=== PATIENT | female | born 1940 | race Caucasian/White ===

== ENCOUNTER 2018-11-12 18:32 | Observation (INO) | payer MEDICARE, BC ==
[2018-11-12] MEDS ORDERED: Sodium Chloride 0.9% 1000 ML 1,000 ML IV STA (19:06)
[2018-11-12] MEDS ORDERED: Sodium Chloride 0.9% 1000 ML 1,000 ML ONE (19:23)
[2018-11-12 20:25] LABS: BASOPHIL % 0.2 % (0.0-0.4); Basophil (Absolute #) 0.03 (0-0.4); Eosinophil % 0.3 % (0.00-5.0); Eosinophil (Absolute #) 0.05 (0-0.5); Granulocyte Absolute (ANC) 12.35 (1.4-6.9); Granulocytes % 85.8 % (36.0-66.0); Hematocrit 42.4 % (35-47); Hemoglobin 13.7 gm/dl (12.0-16.0); Lymphocyte (Absolute #) 1.19 (1.0-4.6); Lymphocytes % 8.3 % (24.0-44.0); Mean Cell Volume 83.8 fl (78-100); Mean Corpuscular Hemoglobin 27.1 pg (26-32); Mean Corpuscular Hgb Concent. 32.3 g/dl (32-36); Mean Platelet Volume 10.9 fl (6-9.5); Monocyte (Absolute #) 0.77 (0.0-1.3); Monocytes % 5.4 % (0.0-12.0); Platelet Count 295 K/mm3 (150-450); Red Blood Count 5.06 M/mm3 (4.1-5.4); Red Cell Distribution Width 15.2 % (11.5-14.0); White Blood Count 14.4 K/mm3 (4.0-10.5)
--- NOTE | 2018-11-12 20:29 | ERPHSYRPT ---
- History of Present Illness Time Seen by Provider: 11/12/18 18:45 Source: patient Exam Limitations: clinical condition Patient Subjective Stated Complaint: pt reports feeling dizzy and sweaty starting around 1800 while sitting at [employer]. states she doesnt know what happened after that. pt reports unknown LOC. pt denies a fall, states she remained sitting. Triage Nursing Assessment: pt is aox3, pupils perrl, pt speech is clear, pt answers questions appropriately, pt skin is clammy upon arrival, pt appears pale , radial pulses strong and equal, heart sounds are strong and regular, cap refill < 3 seconds, no edema noted, skin warm, dry. no obivious injury or deformity noted. Physician History: PATIENT WITH A HISTORY OF HYPERTENSION, WHILE PLAYING [employer] HAD AN EPISODE OF SYNCOPE, UNRESPONSIVE FOR 1-2 MINUTES, HAS ASSOCIATED DIZZINESS AND DIAPHORESIS. DENIES HEADACHE, BLURRED VISION, SLURRED SPEECH, FOCAL NUMBNESS, TINGLING OR WEAKNESS IN EXTREMITIES. Timing/Duration: today Severity: moderate Character of Deficits: none Deficits: no difficulties Baseline/Normal Cognition: alert oriented x 3 Current Cognition: alert oriented x 3 Baseline Gait: walks w/o assistance Associated Symptoms: loss of consciousness Allergies/Adverse Reactions: No Known Drug Allergies Allergy (Unverified 02/22/15 13:59) Home Medications: Lovastatin 40 mg PO HS 02/22/15 [History] Metoprolol Tartrate 50 mg PO BID 02/22/15 [History] Omeprazole 20 mg PO DAILY 02/22/15 [History] Potassium Chloride 10 Meq Tab* [Klor Con 10 MEQ] 10 meq PO DAILY 02/22/15 [ History] Hx Tetanus, Diphtheria Vaccination/Date Given: No Hx Influenza Vaccination/Date Given: Yes Hx Pneumococcal Vaccination/Date Given: No Immunizations Up to Date: Yes - Review of Systems Constitutional: No Fever, No Chills Eyes: No Symptoms Ears, Nose, & Throat: No Symptoms Respiratory: No Symptoms, No Cough, No Dyspnea Cardiac: No Symptoms, No Chest Pain, No Edema, No Syncope Abdominal/Gastrointestinal: No Symptoms, No Abdominal Pain, No Nausea, No Vomiting, No Diarrhea Genitourinary Symptoms: No Symptoms, No Dysuria Musculoskeletal: No Symptoms, No Back Pain, No Neck Pain Skin: No Rash Neurological: Dizziness, Other (SYNCOPE), No Focal Weakness, No Sensory Changes Psychological: No Symptoms Endocrine: No Symptoms All Other Systems: Reviewed and Negative - Past Medical History Pertinent Past Medical History: Yes Neurological History: No Pertinent History ENT History: No Pertinent History Cardiac History: High Cholesterol, Hypertension Respiratory History: No Pertinent History Endocrine Medical History: No Pertinent History Musculoskeletal History: No Pertinent History GI Medical History: No Pertinent History History: No Pertinent History Psycho-Social History: No Pertinent History Female Reproductive Disorders: No Pertinent History - Past Surgical History Past Surgical History: No Neuro Surgical History: No Pertinent History Cardiac: No Pertinent History Respiratory: No Pertinent History Gastrointestinal: No Pertinent History Genitourinary: No Pertinent History Musculoskeletal: No Pertinent History Female Surgical History: No Pertinent History - Social History Smoking Status: Never smoker Exposure to second hand smoke: No Drug Use: none Patient Lives Alone: Yes - Female History Hx Now: No - Nursing Vital Signs Nursing Vital Signs: Initial Vital Signs Temperature 97.3 F 11/12/18 18:33 Pulse Rate 69 11/12/18 18:33 Respiratory Rate 24 11/12/18 18:33 Blood Pressure 125/74 11/12/18 18:33 O2 Sat by Pulse Oximetry 93 L 11/12/18 18:33 Pain Scale Pain Intensity 0 - Physical Exam SpO2: 96 - Course EKG Interpreted by Me: RATE, Sinus Rhythm, NORMAL ST-T (LEADS I, AVL,V3 V4 V5 V6 ) - CT Exams Head CT Interpretation: Discussed w/radiologist (NON ACUTE SENILE BRAIN) Ordered Tests: Active Orders 24 hr Category Date Time Status Orthostatic Vital Signs STAT Care 11/12/18 19:05 Active CHEST 1 VIEW (PORTABLE) Stat Exams 11/12/18 19:34 Taken HEAD WITHOUT CONTRAST [CT] Stat Exams 11/12/18 19:13 Taken CBC W DIFF Stat Lab 11/12/18 20:16 Completed CMP Stat Lab 11/12/18 20:16 Completed CULTURE,URINE Stat Lab 11/12/18 20:20 Received PROTIME WITH INR Stat Lab 11/12/18 20:16 Completed TROPONIN Q3H Lab 11/12/18 20:16 Completed TROPONIN Q3H Lab 11/12/18 22:00 Ordered TROPONIN Q3H Lab 11/13/18 01:00 Ordered TROPONIN Q3H Lab 11/13/18 04:00 Ordered TROPONIN Q3H Lab 11/13/18 07:00 Ordered UA W/RFX UR CULTURE Stat Lab 11/12/18 20:20 Completed Medication Summary Generic Name Dose Route Start Last Admin Trade Name Suzanna PRN Reason Stop Dose Admin Sodium Chloride 1,000 mls @ 250 mls/hr 11/12/18 19:06 11/12/18 19:24 Sodium Chloride 0.9% 1000 Ml IV 11/12/18 23:05 250 mls/hr .Q4H STA Administration Discontinued Medications Generic Name Dose Route Start Last Admin Trade Name Suzanna PRN Reason Stop Dose Admin Sodium Chloride Confirm 11/12/18 19:23 Sodium Chloride 0.9% 1000 Ml Administered 11/12/18 19:24 Dose 1,000 mls @ ud .ROUTE .STK-MED ONE Ceftriaxone Sodium/Dextrose 1 g in 50 mls @ 100 mls/hr 11/12/18 20:46 20:51 Rocephin 1 Gm-D5w 50 Ml Bag IV 11/12/18 21:15 100 ml/hr STAT STA 100 mls/hr Administration Ceftriaxone Sodium/Dextrose Confirm 11/12/18 20:48 Rocephin 1 Gm-D5w 50 Ml Bag Administered 11/12/18 20:49 Dose 1 g in 50 mls @ ud IV .STK-MED ONE Lab/Rad Data: Laboratory Result Diagrams 11/12/18 20:16 11/12/18 20:16 Laboratory Results 11/12/18 11/12/18 11/12/18 Range/Units 20:20 20:16 20:16 WBC (4.0-10.5) K/mm3 RBC (4.1-5.4) M/mm3 Hgb (12.0-16.0) gm/dl Hct (35-47) % MCV (78-100) fl MCH (26-32) pg MCHC (32-36) g/dl RDW (11.5-14.0) % Plt Count (150-450) K/mm3 MPV (6-9.5) fl Gran % (36.0-66.0) % Eos # (Auto) (0-0.5) Absolute Lymphs (auto) (1.0-4.6) Absolute Monos (auto) (0.0-1.3) Lymphocytes % (24.0-44.0) % Monocytes % (0.0-12.0) % Eosinophils % (0.00-5.0) % Basophils % (0.0-0.4) % Absolute Granulocytes (1.4-6.9) Basophils # (0-0.4) PT 12.2 (9.95-12.35) SECONDS INR 1.05 (0.8-3.0) Sodium (137-145) mmol/L Potassium (3.5-5.1) mmol/L Chloride (98-107) mmol/L Carbon Dioxide (22-30) mmol/L Anion Gap (5-15) MEQ/L BUN (7-17) mg/dL Creatinine (0.52-1.04) mg/dL Estimated GFR ML/MIN Glucose (74-106) mg/dL Calcium (8.4-10.2) mg/dL Total Bilirubin (0.2-1.3) mg/dL AST (14-36) U/L ALT (0-35) U/L Alkaline Phosphatase (38-126) U/L Troponin I < 0.012 (0.000-0.034) ng/mL Serum Total Protein (6.3-8.2) g/dL Albumin (3.5-5.0) g/dL Urine Color YELLOW (YELLOW) Urine Appearance SLIGHTLY CLOUDY (CLEAR) Urine pH 5.0 (5-6) Ur Specific Chandler 1.021 (1.005-1.025) Urine Protein NEGATIVE (Negative) Urine Ketones NEGATIVE (NEGATIVE) Urine Blood NEGATIVE (0-5) William/ul Urine Nitrite NEGATIVE (NEGATIVE) Urine Bilirubin NEGATIVE (NEGATIVE) Urine Urobilinogen 2 (0-1) mg/dL Ur Leukocyte Esterase NEGATIVE (NEGATIVE) Urine WBC (Auto) 6-10 (0-5) /HPF Urine RBC (Auto) 3-5 (0-2) /HPF U Hyaline Cast (Auto) 3-5 (0-2) /LPF U Epithel Cells (Auto) RARE (FEW) /HPF Urine Bacteria (Auto) FEW (NEGATIVE) /HPF Other Casts (Auto) 5-10 (NEGATIVE) /LPF Urine Mucus (Auto) MODERATE (NEGATIVE) /HPF Urine Culture Reflexed YES (NO) Urine Glucose NEGATIVE (NEGATIVE) mg/dL 11/12/18 11/12/18 Range/Units 20:16 20:16 WBC 14.4 H (4.0-10.5) K/mm3 RBC 5.06 (4.1-5.4) M/mm3 Hgb 13.7 (12.0-16.0) gm/dl Hct 42.4 (35-47) % MCV 83.8 (78-100) fl MCH 27.1 (26-32) pg MCHC 32.3 (32-36) g/dl RDW 15.2 H (11.5-14.0) % Plt Count 295 (150-450) K/mm3 MPV 10.9 H (6-9.5) fl Gran % 85.8 H (36.0-66.0) % Eos # (Auto) 0.05 (0-0.5) Absolute Lymphs (auto) 1.19 (1.0-4.6) Absolute Monos (auto) 0.77 (0.0-1.3) Lymphocytes % 8.3 L (24.0-44.0) % Monocytes % 5.4 (0.0-12.0) % Eosinophils % 0.3 (0.00-5.0) % Basophils % 0.2 (0.0-0.4) % Absolute Granulocytes 12.35 H (1.4-6.9) Basophils # 0.03 (0-0.4) PT (9.95-12.35) SECONDS INR (0.8-3.0) Sodium 141 (137-145) mmol/L Potassium 3.8 (3.5-5.1) mmol/L Chloride 105 (98-107) mmol/L Carbon Dioxide 23 (22-30) mmol/L Anion Gap 16.3 H (5-15) MEQ/L BUN 38 H (7-17) mg/dL Creatinine 1.16 H (0.52-1.04) mg/dL Estimated GFR 48.3 ML/MIN Glucose 141 H (74-106) mg/dL Calcium 9.1 (8.4-10.2) mg/dL Total Bilirubin 0.60 (0.2-1.3) mg/dL AST 35 (14-36) U/L ALT 27 (0-35) U/L Alkaline Phosphatase 82 (38-126) U/L Troponin I (0.000-0.034) ng/mL Serum Total Protein 8.0 (6.3-8.2) g/dL Albumin 4.4 (3.5-5.0) g/dL Urine Color (YELLOW) Urine Appearance (CLEAR) Urine pH (5-6) Ur Specific Chandler (1.005-1.025) Urine Protein (Negative) Urine Ketones (NEGATIVE) Urine Blood (0-5) William/ul Urine Nitrite (NEGATIVE) Urine Bilirubin (NEGATIVE) Urine Urobilinogen (0-1) mg/dL Ur Leukocyte Esterase (NEGATIVE) Urine WBC (Auto) (0-5) /HPF Urine RBC (Auto) (0-2) /HPF U Hyaline Cast (Auto) (0-2) /LPF U Epithel Cells (Auto) (FEW) /HPF Urine Bacteria (Auto) (NEGATIVE) /HPF Other Casts (Auto) (NEGATIVE) /LPF Urine Mucus (Auto) (NEGATIVE) /HPF Urine Culture Reflexed (NO) Urine Glucose (NEGATIVE) mg/dL - Progress Progress Note: 11/12/18 21:13 IV NORMAL SALINE 100ML/HR, ROCEPHIN 1GM IV Discussed with : Joan (DISCUSSED WITH DR BYOLE AT 1210 FOR OBSERVATION) - Departure Time of Disposition: 21:20 Departure Disposition: Observation Clinical Impression: SYNCOPE, URINARY TRACT INFECTION Condition: Stable Critical Care Time: No Referrals: PEDRO MONTENEGRO MD [Primary Care Provider] -
[2018-11-12 20:33] LABS: INR 1.05 (0.8-3.0); PROTIME 12.2 SECONDS (9.95-12.35)
[2018-11-12 20:40] LABS: Appearance SLIGHTLY CLOUDY (CLEAR); Bacteria FEW /HPF (NEGATIVE); Bilirubin NEGATIVE (NEGATIVE); Blood NEGATIVE Ery/ul (0-5); Epithelial Cells RARE /HPF (FEW); Glucose NEGATIVE (NEGATIVE); Ketones NEGATIVE (NEGATIVE); Leukocyte Esterase NEGATIVE (NEGATIVE); Mucus MODERATE /HPF (NEGATIVE); Nitrite NEGATIVE (NEGATIVE); Protein,Urine Dip NEGATIVE (Negative); Specific Gravity 1.021 (1.005-1.025); Urobilinogen 2 mg/dL (0-1)
[2018-11-12 20:43] LABS: ALBUMIN 4.4 g/dL (3.5-5.0); ANION GAP 16.3 MEQ/L (5-15); BILIRUBIN,TOTAL 0.6 mg/dL (0.2-1.3); Calcium 9.1 mg/dL (8.4-10.2); Creatinine 1 1.16 mg/dL (0.52-1.04); Potassium 3.8 mmol/L (3.5-5.1)
[2018-11-12] MEDS ORDERED: ROCEPHIN 1 Gm-D5w 50 ml Bag** 1 G/50 ML IVPB IV STA (20:46)
[2018-11-12] MEDS ORDERED: ROCEPHIN 1 Gm-D5w 50 ml Bag** 1 G/50 ML IVPB IV ONE (20:48)
[2018-11-12] MEDS ORDERED: Sodium Chloride 0.9% 1000 ML 1,000 ML IV SCH (21:38)
[2018-11-12] MEDS ORDERED: Zestril 10 MG PO STA (21:38)
[2018-11-12] MEDS ORDERED: TYLENOL 325 MG PO PRN (21:38)
[2018-11-13] MEDS: Toprol Xl 50 MG PO SCH ×2 (00:17→09:47)
--- NOTE | 2018-11-13 08:18 | PCM.SSS ---
History of Present Illness - Chief Complaint Chief Complaint: TIA UTI History of Present Illness: MS. ESPARZA is a 78 year old female pt of Dr. Montenegro with hx HTN, hyperlipidemia, and GERD who was admitted through ER with syncope. She felt fine all day aside from some decreased appetite; went to [employer] and was sitting - she felt like she needed to leave, but couldn't. The next thing she remembers is the ambulance picking her up. Witnesses told her that she went limp and was out for 5 min ( no one present at bedside this morning). Her Troponins have been negative x 4. She had 6-10 WBC in her urine and WBC 14.4 so IV rocephin was started. Her BUN/Cr is 38/1.16 for eGFR 48.3 (last recorded was in 01/2018 was BUN 17/Cr 0.83 for eGFR > 60). EKG unremarkable. CT head nl. MRI brain, carotid doppler, and echo are ordered for today. If she is feeling well this afternoon, may be able to d/c to home. Would plan outpatient lab in close follow up to recheck renal function. - Review of Systems Abdominal/Gastrointestinal: Appetite Changes Neurological: Other (syncope) Psychological: No Depression, No Suicidal Ideations All Other Systems: Reviewed and Negative Medications & Allergies Home Medications: Home Medication List Lovastatin 40 mg PO HS 02/22/15 [History Confirmed 11/12/18] Metoprolol Tartrate 50 mg PO BID 02/22/15 [History Confirmed 11/12/18] Omeprazole 20 mg PO DAILY 02/22/15 [History Confirmed 11/12/18] Potassium Chloride 10 Meq Tab* [Klor Con 10 MEQ] 10 meq PO DAILY 02/22/15 [ History Confirmed 11/12/18] Lisinopril 20 mg [Zestril 20 MG] 20 mg PO DAILY #30 tablet 02/23/15 [Rx Confirmed 11/12/18] Allergies/Adverse Reactions: Allergies Allergy/AdvReac Type Severity Reaction Status Date / Time No Known Drug Allergies Allergy Unverified 02/22/15 13:59 - Past Medical History Past Medical History: Yes Neurological History: No Pertinent History ENT History: No Pertinent History Cardiac History: High Cholesterol, Hypertension Respiratory History: No Pertinent History Endocrine Medical History: No Pertinent History Musculoskelatal History: No Pertinent History GI Medical History: GERD History: No Pertinent History Pyscho-Social History: No Pertinent History Reproductive Disorders: No Pertinent History - Female History Are you now?: No - Past Surgical History Past Surgical History: No Neuro Surgical History: No Pertinent History Cardiac History: No Pertinent History Respiratory Surgery: No Pertinent History GI Surgical History: No Pertinent History Genitourinary Surgical Hx: No Pertinent History Musculskeletal Surgical Hx: No Pertinent History Female Surgical History: No Pertinent History - Social History Smoking Status: Never smoker Exposure to second hand smoke: No Alcohol: None Drug Use: none - Physical Exam Vital Signs: Vital Signs - 24 hr Temp Pulse Resp BP Pulse Ox 11/13/18 07:42 98.5 F 72 18 140/72 96 11/13/18 07:13 97 11/13/18 03:54 98.5 F 57 L 16 138/66 91 L 11/13/18 03:15 18 11/13/18 01:31 97.7 F 56 L 18 136/69 93 L 11/12/18 22:00 98.7 F 62 20 150/70 93 L 11/12/18 21:19 96 11/12/18 20:53 68 16 131/73 93 L 11/12/18 19:51 84 20 119/69 96 11/12/18 19:36 72 16 97 11/12/18 18:33 97.3 F 69 24 125/74 93 L Oxygen-Last 24 hours O2 Percentage 2 Liters = 28% General Appearance: no apparent distress, alert, obese Neurologic Exam: oriented x 3, cooperative, other (Cn III-XII intact bilat. Rack Room Worker 5/5 bilat. dorsiflexion, plantar flexion, and hip flexors 5/5 bilat.) Eye Exam: eyes nml inspection Ears, Nose, Throat Exam: moist mucous membranes Neck Exam: normal inspection, non-tender, No lymphadenopathy Respiratory Exam: normal breath sounds, lungs clear, No crackles/rales, No rhonchi, No wheezing Cardiovascular Exam: regular rate/rhythm, normal heart sounds, No murmur Gastrointestinal/Abdomen Exam: soft, normal bowel sounds, No tenderness, No distention, No mass, No guarding, No rebound Back Exam: normal inspection, No rash Extremity Exam: normal inspection, No pedal edema, No swelling Skin Exam: normal color, warm, dry, No rash Results - Labs Lab/Micro Results: Lab Results-Last 24 Hours 11/12/18 11/12/18 11/12/18 Range/Units 20:16 20:16 20:16 WBC 14.4 H (4.0-10.5) K/mm3 RBC 5.06 (4.1-5.4) M/mm3 Hgb 13.7 (12.0-16.0) gm/dl Hct 42.4 (35-47) % MCV 83.8 (78-100) fl MCH 27.1 (26-32) pg MCHC 32.3 (32-36) g/dl RDW 15.2 H (11.5-14.0) % Plt Count 295 (150-450) K/mm3 MPV 10.9 H (6-9.5) fl Gran % 85.8 H (36.0-66.0) % Eos # (Auto) 0.05 (0-0.5) Absolute Lymphs (auto) 1.19 (1.0-4.6) Absolute Monos (auto) 0.77 (0.0-1.3) Lymphocytes % 8.3 L (24.0-44.0) % Monocytes % 5.4 (0.0-12.0) % Eosinophils % 0.3 (0.00-5.0) % Basophils % 0.2 (0.0-0.4) % Absolute Granulocytes 12.35 H (1.4-6.9) Basophils # 0.03 (0-0.4) PT 12.2 (9.95-12.35) SECONDS INR 1.05 (0.8-3.0) Sodium 141 (137-145) mmol/L Potassium 3.8 (3.5-5.1) mmol/L Chloride 105 (98-107) mmol/L Carbon Dioxide 23 (22-30) mmol/L Anion Gap 16.3 H (5-15) MEQ/L BUN 38 H (7-17) mg/dL Creatinine 1.16 H (0.52-1.04) mg/dL Estimated GFR 48.3 ML/MIN Glucose 141 H (74-106) mg/dL Calcium 9.1 (8.4-10.2) mg/dL Total Bilirubin 0.60 (0.2-1.3) mg/dL AST 35 (14-36) U/L ALT 27 (0-35) U/L Alkaline Phosphatase 82 (38-126) U/L Troponin I (0.000-0.034) ng/mL Serum Total Protein 8.0 (6.3-8.2) g/dL Albumin 4.4 (3.5-5.0) g/dL Urine Color (YELLOW) Urine Appearance (CLEAR) Urine pH (5-6) Ur Specific Somers (1.005-1.025) Urine Protein (Negative) Urine Ketones (NEGATIVE) Urine Blood (0-5) William/ul Urine Nitrite (NEGATIVE) Urine Bilirubin (NEGATIVE) Urine Urobilinogen (0-1) mg/dL Ur Leukocyte Esterase (NEGATIVE) Urine WBC (Auto) (0-5) /HPF Urine RBC (Auto) (0-2) /HPF U Hyaline Cast (Auto) (0-2) /LPF U Epithel Cells (Auto) (FEW) /HPF Urine Bacteria (Auto) (NEGATIVE) /HPF Other Casts (Auto) (NEGATIVE) /LPF Urine Mucus (Auto) (NEGATIVE) /HPF Urine Culture Reflexed (NO) Urine Glucose (NEGATIVE) mg/dL 11/12/18 11/12/18 11/12/18 Range/Units 20:16 20:20 22:12 WBC (4.0-10.5) K/mm3 RBC (4.1-5.4) M/mm3 Hgb (12.0-16.0) gm/dl Hct (35-47) % MCV (78-100) fl MCH (26-32) pg MCHC (32-36) g/dl RDW (11.5-14.0) % Plt Count (150-450) K/mm3 MPV (6-9.5) fl Gran % (36.0-66.0) % Eos # (Auto) (0-0.5) Absolute Lymphs (auto) (1.0-4.6) Absolute Monos (auto) (0.0-1.3) Lymphocytes % (24.0-44.0) % Monocytes % (0.0-12.0) % Eosinophils % (0.00-5.0) % Basophils % (0.0-0.4) % Absolute Granulocytes (1.4-6.9) Basophils # (0-0.4) PT (9.95-12.35) SECONDS INR (0.8-3.0) Sodium (137-145) mmol/L Potassium (3.5-5.1) mmol/L Chloride (98-107) mmol/L Carbon Dioxide (22-30) mmol/L Anion Gap (5-15) MEQ/L BUN (7-17) mg/dL Creatinine (0.52-1.04) mg/dL Estimated GFR ML/MIN Glucose (74-106) mg/dL Calcium (8.4-10.2) mg/dL Total Bilirubin (0.2-1.3) mg/dL AST (14-36) U/L ALT (0-35) U/L Alkaline Phosphatase (38-126) U/L Troponin I < 0.012 < 0.012 (0.000-0.034) ng/mL Serum Total Protein (6.3-8.2) g/dL Albumin (3.5-5.0) g/dL Urine Color YELLOW (YELLOW) Urine Appearance SLIGHTLY CLOUDY (CLEAR) Urine pH 5.0 (5-6) Ur Specific Somers 1.021 (1.005-1.025) Urine Protein NEGATIVE (Negative) Urine Ketones NEGATIVE (NEGATIVE) Urine Blood NEGATIVE (0-5) William/ul Urine Nitrite NEGATIVE (NEGATIVE) Urine Bilirubin NEGATIVE (NEGATIVE) Urine Urobilinogen 2 (0-1) mg/dL Ur Leukocyte Esterase NEGATIVE (NEGATIVE) Urine WBC (Auto) 6-10 (0-5) /HPF Urine RBC (Auto) 3-5 (0-2) /HPF U Hyaline Cast (Auto) 3-5 (0-2) /LPF U Epithel Cells (Auto) RARE (FEW) /HPF Urine Bacteria (Auto) FEW (NEGATIVE) /HPF Other Casts (Auto) 5-10 (NEGATIVE) /LPF Urine Mucus (Auto) MODERATE (NEGATIVE) /HPF Urine Culture Reflexed YES (NO) Urine Glucose NEGATIVE (NEGATIVE) mg/dL 11/13/18 11/13/18 Range/Units 01:10 04:10 WBC (4.0-10.5) K/mm3 RBC (4.1-5.4) M/mm3 Hgb (12.0-16.0) gm/dl Hct (35-47) % MCV (78-100) fl MCH (26-32) pg MCHC (32-36) g/dl RDW (11.5-14.0) % Plt Count (150-450) K/mm3 MPV (6-9.5) fl Gran % (36.0-66.0) % Eos # (Auto) (0-0.5) Absolute Lymphs (auto) (1.0-4.6) Absolute Monos (auto) (0.0-1.3) Lymphocytes % (24.0-44.0) % Monocytes % (0.0-12.0) % Eosinophils % (0.00-5.0) % Basophils % (0.0-0.4) % Absolute Granulocytes (1.4-6.9) Basophils # (0-0.4) PT (9.95-12.35) SECONDS INR (0.8-3.0) Sodium (137-145) mmol/L Potassium (3.5-5.1) mmol/L Chloride (98-107) mmol/L Carbon Dioxide (22-30) mmol/L Anion Gap (5-15) MEQ/L BUN (7-17) mg/dL Creatinine (0.52-1.04) mg/dL Estimated GFR ML/MIN Glucose (74-106) mg/dL Calcium (8.4-10.2) mg/dL Total Bilirubin (0.2-1.3) mg/dL AST (14-36) U/L ALT (0-35) U/L Alkaline Phosphatase (38-126) U/L Troponin I < 0.012 < 0.012 (0.000-0.034) ng/mL Serum Total Protein (6.3-8.2) g/dL Albumin (3.5-5.0) g/dL Urine Color (YELLOW) Urine Appearance (CLEAR) Urine pH (5-6) Ur Specific Somers (1.005-1.025) Urine Protein (Negative) Urine Ketones (NEGATIVE) Urine Blood (0-5) William/ul Urine Nitrite (NEGATIVE) Urine Bilirubin (NEGATIVE) Urine Urobilinogen (0-1) mg/dL Ur Leukocyte Esterase (NEGATIVE) Urine WBC (Auto) (0-5) /HPF Urine RBC (Auto) (0-2) /HPF U Hyaline Cast (Auto) (0-2) /LPF U Epithel Cells (Auto) (FEW) /HPF Urine Bacteria (Auto) (NEGATIVE) /HPF Other Casts (Auto) (NEGATIVE) /LPF Urine Mucus (Auto) (NEGATIVE) /HPF Urine Culture Reflexed (NO) Urine Glucose (NEGATIVE) mg/dL - Radiology Impressions Radiology Exams & Impressions: Radiology Procedures Category Date Time Status CAROTID BILATERAL [US] Stat Exams 11/13/18 21:38 Ordered CHEST 1 VIEW (PORTABLE) Stat Exams 11/12/18 19:34 Taken ECHO W/2D AND DOPPLER [US] Stat Exams 11/13/18 21:38 Ordered HEAD WITHOUT CONTRAST [CT] Stat Exams 11/12/18 19:13 Taken MRI BRAIN W & W/O CONTRAST [MRI] Stat Exams 11/13/18 21:38 Ordered - Other Procedures and Tests Respiratory Therapy 11/12/18 21:38 Oxygen Nasal Cannula 2 lpm 11/13/18 07:12 Respiratory Therapy Assessment DAILY Assessment/Plan (1) Syncope Current Visit: Yes Status: Acute Qualifiers: Syncope type: unspecified Qualified Code(s): R55 - Syncope and collapse Assessment & Plan: MRI, carotid doppler, and echo pending. Ruled out for VT. On telemetry all night with no reported episodes. If testing done and pt feeling well may d/t to home tonight. Code(s): R55 - SYNCOPE AND COLLAPSE (2) UTI (urinary tract infection) Current Visit: Yes Status: Acute Qualifiers: Urinary tract infection type: acute cystitis Hematuria presence: without hematuria Qualified Code(s): N30.00 - Acute cystitis without hematuria Assessment & Plan: Will start treatment with IV rocephin pending Ucx results. Code(s): N39.0 - URINARY TRACT INFECTION, SITE NOT SPECIFIED (3) Renal insufficiency Current Visit: Yes Status: Acute Assessment & Plan: Last eGFR nl in January 2018. Recheck in 3-4 d. Give bolus of fluid while here. (4) HTN (hypertension) Current Visit: Yes Status: Chronic Qualifiers: Hypertension type: essential hypertension Qualified Code(s): I10 - Essential (primary) hypertension Code(s): I10 - ESSENTIAL (PRIMARY) HYPERTENSION (5) GERD (gastroesophageal reflux disease) Current Visit: Yes Status: Chronic Qualifiers: Esophagitis presence: esophagitis presence not specified Qualified Code(s) : K21.9 - Gastro-esophageal reflux disease without esophagitis Code(s): K21.9 - GASTRO-ESOPHAGEAL REFLUX DISEASE WITHOUT ESOPHAGITIS (6) Hyperlipidemia Current Visit: Yes Status: Chronic Qualifiers: Hyperlipidemia type: unspecified Qualified Code(s): E78.5 - Hyperlipidemia , unspecified Code(s): E78.5 - HYPERLIPIDEMIA, UNSPECIFIED Hospital Summary - Hospital Course Hospital Course: Pt is 78 yo female pt of Dr[address] Montenegro with PMHx HTN, hyperlipidemia, and YASMEEN who came to ER via ambulance with syncope. MRI, carotid doppler, and echocardiogram to be done. CT head nl in ER. Troponins negative x 4 (last one pending). Decreased renal function today compared wiht January 2018 - will recheck outpatient. Some WBC on urine so treating for UTI pending culture results. Pt may be discharged this evening if feeling well. - Vitals & Intake/Output Vital Signs: Vital Signs Temperature 98.5 F 11/13/18 07:42 Pulse Rate 72 11/13/18 07:42 Respiratory Rate 18 11/13/18 07:42 Blood Pressure 140/72 11/13/18 07:42 O2 Sat by Pulse Oximetry 96 11/13/18 07:42 Oxygen-Last Documented O2 Percentage 2 Liters = 28% Intake & Output: Intake & Output 11/10/18 11/11/18 11/12/18 11/13/18 11:59 11:59 11:59 11:59 Intake Total 1086 Balance 1086 Weight 175 kg - Lab Result Diagrams: 11/12/18 20:16 11/12/18 20:16 Lab Results-Last 24 Hrs: Lab Results-Last 24 Hours 11/12/18 11/12/18 11/12/18 Range/Units 20:16 20:16 20:16 WBC 14.4 H (4.0-10.5) K/mm3 RBC 5.06 (4.1-5.4) M/mm3 Hgb 13.7 (12.0-16.0) gm/dl Hct 42.4 (35-47) % MCV 83.8 (78-100) fl MCH 27.1 (26-32) pg MCHC 32.3 (32-36) g/dl RDW 15.2 H (11.5-14.0) % Plt Count 295 (150-450) K/mm3 MPV 10.9 H (6-9.5) fl Gran % 85.8 H (36.0-66.0) % Eos # (Auto) 0.05 (0-0.5) Absolute Lymphs (auto) 1.19 (1.0-4.6) Absolute Monos (auto) 0.77 (0.0-1.3) Lymphocytes % 8.3 L (24.0-44.0) % Monocytes % 5.4 (0.0-12.0) % Eosinophils % 0.3 (0.00-5.0) % Basophils % 0.2 (0.0-0.4) % Absolute Granulocytes 12.35 H (1.4-6.9) Basophils # 0.03 (0-0.4) PT 12.2 (9.95-12.35) SECONDS INR 1.05 (0.8-3.0) Sodium 141 (137-145) mmol/L Potassium 3.8 (3.5-5.1) mmol/L Chloride 105 (98-107) mmol/L Carbon Dioxide 23 (22-30) mmol/L Anion Gap 16.3 H (5-15) MEQ/L BUN 38 H (7-17) mg/dL Creatinine 1.16 H (0.52-1.04) mg/dL Estimated GFR 48.3 ML/MIN Glucose 141 H (74-106) mg/dL Calcium 9.1 (8.4-10.2) mg/dL Total Bilirubin 0.60 (0.2-1.3) mg/dL AST 35 (14-36) U/L ALT 27 (0-35) U/L Alkaline Phosphatase 82 (38-126) U/L Troponin I (0.000-0.034) ng/mL Serum Total Protein 8.0 (6.3-8.2) g/dL Albumin 4.4 (3.5-5.0) g/dL Urine Color (YELLOW) Urine Appearance (CLEAR) Urine pH (5-6) Ur Specific Somers (1.005-1.025) Urine Protein (Negative) Urine Ketones (NEGATIVE) Urine Blood (0-5) William/ul Urine Nitrite (NEGATIVE) Urine Bilirubin (NEGATIVE) Urine Urobilinogen (0-1) mg/dL Ur Leukocyte Esterase (NEGATIVE) Urine WBC (Auto) (0-5) /HPF Urine RBC (Auto) (0-2) /HPF U Hyaline Cast (Auto) (0-2) /LPF U Epithel Cells (Auto) (FEW) /HPF Urine Bacteria (Auto) (NEGATIVE) /HPF Other Casts (Auto) (NEGATIVE) /LPF Urine Mucus (Auto) (NEGATIVE) /HPF Urine Culture Reflexed (NO) Urine Glucose (NEGATIVE) mg/dL 11/12/18 11/12/18 11/12/18 Range/Units 20:16 20:20 22:12 WBC (4.0-10.5) K/mm3 RBC (4.1-5.4) M/mm3 Hgb (12.0-16.0) gm/dl Hct (35-47) % MCV (78-100) fl MCH (26-32) pg MCHC (32-36) g/dl RDW (11.5-14.0) % Plt Count (150-450) K/mm3 MPV (6-9.5) fl Gran % (36.0-66.0) % Eos # (Auto) (0-0.5) Absolute Lymphs (auto) (1.0-4.6) Absolute Monos (auto) (0.0-1.3) Lymphocytes % (24.0-44.0) % Monocytes % (0.0-12.0) % Eosinophils % (0.00-5.0) % Basophils % (0.0-0.4) % Absolute Granulocytes (1.4-6.9) Basophils # (0-0.4) PT (9.95-12.35) SECONDS INR (0.8-3.0) Sodium (137-145) mmol/L Potassium (3.5-5.1) mmol/L Chloride (98-107) mmol/L Carbon Dioxide (22-30) mmol/L Anion Gap (5-15) MEQ/L BUN (7-17) mg/dL Creatinine (0.52-1.04) mg/dL Estimated GFR ML/MIN Glucose (74-106) mg/dL Calcium (8.4-10.2) mg/dL Total Bilirubin (0.2-1.3) mg/dL AST (14-36) U/L ALT (0-35) U/L Alkaline Phosphatase (38-126) U/L Troponin I < 0.012 < 0.012 (0.000-0.034) ng/mL Serum Total Protein (6.3-8.2) g/dL Albumin (3.5-5.0) g/dL Urine Color YELLOW (YELLOW) Urine Appearance SLIGHTLY CLOUDY (CLEAR) Urine pH 5.0 (5-6) Ur Specific Somers 1.021 (1.005-1.025) Urine Protein NEGATIVE (Negative) Urine Ketones NEGATIVE (NEGATIVE) Urine Blood NEGATIVE (0-5) William/ul Urine Nitrite NEGATIVE (NEGATIVE) Urine Bilirubin NEGATIVE (NEGATIVE) Urine Urobilinogen 2 (0-1) mg/dL Ur Leukocyte Esterase NEGATIVE (NEGATIVE) Urine WBC (Auto) 6-10 (0-5) /HPF Urine RBC (Auto) 3-5 (0-2) /HPF U Hyaline Cast (Auto) 3-5 (0-2) /LPF U Epithel Cells (Auto) RARE (FEW) /HPF Urine Bacteria (Auto) FEW (NEGATIVE) /HPF Other Casts (Auto) 5-10 (NEGATIVE) /LPF Urine Mucus (Auto) MODERATE (NEGATIVE) /HPF Urine Culture Reflexed YES (NO) Urine Glucose NEGATIVE (NEGATIVE) mg/dL 11/13/18 11/13/18 Range/Units 01:10 04:10 WBC (4.0-10.5) K/mm3 RBC (4.1-5.4) M/mm3 Hgb (12.0-16.0) gm/dl Hct (35-47) % MCV (78-100) fl MCH (26-32) pg MCHC (32-36) g/dl RDW (11.5-14.0) % Plt Count (150-450) K/mm3 MPV (6-9.5) fl Gran % (36.0-66.0) % Eos # (Auto) (0-0.5) Absolute Lymphs (auto) (1.0-4.6) Absolute Monos (auto) (0.0-1.3) Lymphocytes % (24.0-44.0) % Monocytes % (0.0-12.0) % Eosinophils % (0.00-5.0) % Basophils % (0.0-0.4) % Absolute Granulocytes (1.4-6.9) Basophils # (0-0.4) PT (9.95-12.35) SECONDS INR (0.8-3.0) Sodium (137-145) mmol/L Potassium (3.5-5.1) mmol/L Chloride (98-107) mmol/L Carbon Dioxide (22-30) mmol/L Anion Gap (5-15) MEQ/L BUN (7-17) mg/dL Creatinine (0.52-1.04) mg/dL Estimated GFR ML/MIN Glucose (74-106) mg/dL Calcium (8.4-10.2) mg/dL Total Bilirubin (0.2-1.3) mg/dL AST (14-36) U/L ALT (0-35) U/L Alkaline Phosphatase (38-126) U/L Troponin I < 0.012 < 0.012 (0.000-0.034) ng/mL Serum Total Protein (6.3-8.2) g/dL Albumin (3.5-5.0) g/dL Urine Color (YELLOW) Urine Appearance (CLEAR) Urine pH (5-6) Ur Specific Somers (1.005-1.025) Urine Protein (Negative) Urine Ketones (NEGATIVE) Urine Blood (0-5) William/ul Urine Nitrite (NEGATIVE) Urine Bilirubin (NEGATIVE) Urine Urobilinogen (0-1) mg/dL Ur Leukocyte Esterase (NEGATIVE) Urine WBC (Auto) (0-5) /HPF Urine RBC (Auto) (0-2) /HPF U Hyaline Cast (Auto) (0-2) /LPF U Epithel Cells (Auto) (FEW) /HPF Urine Bacteria (Auto) (NEGATIVE) /HPF Other Casts (Auto) (NEGATIVE) /LPF Urine Mucus (Auto) (NEGATIVE) /HPF Urine Culture Reflexed (NO) Urine Glucose (NEGATIVE) mg/dL - Radiology Exams Ordered Rad Exams-Entire Visit: Radiology Procedures Category Date Time Status CAROTID BILATERAL [US] Stat Exams 11/13/18 21:38 Ordered CHEST 1 VIEW (PORTABLE) Stat Exams 11/12/18 19:34 Taken ECHO W/2D AND DOPPLER [US] Stat Exams 11/13/18 21:38 Ordered HEAD WITHOUT CONTRAST [CT] Stat Exams 11/12/18 19:13 Taken MRI BRAIN W & W/O CONTRAST [MRI] Stat Exams 11/13/18 21:38 Ordered - Procedures and Test Procedures and Tests throughout Hospitalization: Therapy Orders & Screens 11/12/18 21:38 Oxygen Nasal Cannula 2 lpm Comment: 11/13/18 07:12 Respiratory Therapy Assessment DAILY Comment: Diagnosis: TIA UTI - Discharge Disposition: Home, Self-Care Condition: Stable Prescriptions: No Action Lovastatin 40 mg PO HS Metoprolol Tartrate 50 mg PO BID Omeprazole 20 mg PO DAILY Potassium Chloride 10 Meq Tab* [Klor Con 10 MEQ] 10 meq PO DAILY Lisinopril 20 mg [Zestril 20 MG] 20 mg PO DAILY #30 tablet Follow up with: PEDRO MONTENEGRO MD [Primary Care Provider] - 1 Week
[2018-11-13] MEDS ORDERED: Ativan 2 MG/1 ML VIAL IV PRN (08:20)
--- NOTE | 2018-11-13 08:39 | XRAY ---
Indication: Dyspnea. Comparison: November 14, 2007. Portable chest demonstrates chronic right hemidiaphragm elevation with adjacent atelectasis. Remaining heart and lungs unremarkable. Bony thorax intact. No new/acute findings.
--- NOTE | 2018-11-13 08:41 | XRAY ---
Indication: Dizziness. Multiple contiguous axial images obtained through the head without contrast. Comparison: None Age-appropriate global atrophy and moderate periventricular degenerative micro-ischemia bilaterally. No acute intracranial hemorrhage, abnormal extra-axial fluid collection, or mass effect. Fourth ventricle is midline without hydrocephalus. Bony calvarium intact. Visualized paranasal sinuses and mastoid air cells are clear. Impression: Nonacute senile brain. CT DI 70.31
--- NOTE | 2018-11-13 11:00 | XRAY ---
Indication: Syncope. Two-dimensional sonogram and color Doppler imaging of the carotid arteries of the neck performed. Comparison: None Examination of the right carotid circulation demonstrates slightly tortuous common carotid artery. Minimal heterogeneous plaquing in the proximal internal carotid artery. PSV of the CCA is 87 cm/s. PSV of the ICA is 108 cm/s. ICA/CCA ratio is 1.2. Normal antegrade vertebral artery flow. Examination of the left carotid circulation demonstrates mild calcified plaquing at the level of the bulb extending into the origin and proximal internal carotid artery. PSV of the CCA is 77 cm/s. PSV of the ICA is 210 cm/s. ICA/CCA ratio is 2.7. Normal antegrade vertebral artery flow. Impression: 1. Mild left carotid arteriosclerotic plaquing as detailed. Velocity measurements and ratios favor 50-69% stenosis. 2. Minimal right carotid plaquing. Velocity measurements and ratios negative for hemodynamically significant flow-limiting stenosis.
[2018-11-13 12:46] VITALS: BP 137/78; PULSE 56; O2SAT 94
[2018-11-13] MEDS ORDERED: ROCEPHIN 1 Gm-D5w 50 ml Bag** 1 G/50 ML IVPB IV SCH (22:00)
== END 2018-11-13 16:37 | disposition home or self-care (01) ==
LOC: ED 18:32 → MED SURG 21:32
PROVIDERS: ADMIT Family Medicine; ATTEND Family Medicine
DX: R55 Syncope and collapse (principal); I10 Essential (primary) hypertension; N39.0 Urinary tract infection, site not specified; E78.5 Hyperlipidemia, unspecified; K21.9 Gastro-esophageal reflux disease without esophagitis; Z79.899 Other long term (current) drug therapy; N28.9 Disorder of kidney and ureter, unspecified
CPT/HCPCS: 36415; 70450; 71045; 80053; 81001; 84484; 85025; 85610; 87086; 93268; 93306; 93880; 94760; 95812; 96360; 96361; 96365; 99285; G0378; J0696; J2060; A9270-GY

== ENCOUNTER 2019-11-21 13:48 | Observation (INO) | payer MEDICARE, OTHER ==
[2019-11-21] MEDS ORDERED: Zofran 4 MG/2 ML VIAL IV ONE (14:04)
[2019-11-21] MEDS ORDERED: Sodium Chloride 0.9% 1000 ML 1,000 ML IV STA (14:04)
[2019-11-21 14:17] LABS: Hematocrit 40.2 % (35-47); Mean Cell Volume 76.4 fl (78-100); Mean Corpuscular Hemoglobin 24.7 pg (26-32); Mean Corpuscular Hgb Concent. 32.3 g/dl (32-36); Mean Platelet Volume 10.4 fl (7.5-11.0); Platelet Count 473 K/mm3 (150-450); Red Blood Count 5.26 M/mm3 (4.1-5.4); Red Cell Distribution Width 17.5 % (11.5-14.0); White Blood Count 20.3 K/mm3 (4.0-10.5)
[2019-11-21 14:35] LABS: ALBUMIN 4.3 g/dL (3.5-5.0); ANION GAP 16.3 MEQ/L (5-15); BILIRUBIN,TOTAL 0.7 mg/dL (0.2-1.3); Calcium 9.1 mg/dL (8.4-10.2); Creatinine 1 1.5 mg/dL (0.52-1.04); Potassium 3.2 mmol/L (3.5-5.1); Total Protein 10.2 g/dL (6.3-8.2)
[2019-11-21] MEDS ORDERED: Zofran 4 MG/2 ML VIAL ONE (14:45)
[2019-11-21] MEDS ORDERED: Sodium Chloride 0.9% 1000 ML 1,000 ML ONE (14:45)
[2019-11-21 15:06] LABS: Appearance CLOUDY (CLEAR); Bilirubin NEGATIVE (NEGATIVE); Blood LARGE Ery/ul (0-5); Epithelial Cells RARE /HPF (FEW); Glucose NEGATIVE (NEGATIVE); Ketones TRACE (NEGATIVE); Leukocyte Esterase TRACE (NEGATIVE); Mucus SLIGHT /HPF (NEGATIVE); Nitrite NEGATIVE (NEGATIVE); Protein,Urine Dip 100 (Negative); RBC 51-100 /HPF (0-2); Specific Gravity 1.021 (1.005-1.025); Urobilinogen NEGATIVE mg/dL (0-1)
--- NOTE | 2019-11-21 15:19 | XRAY ---
Indication: Vomiting. Obstruction versus pancreatitis. Multiple contiguous axial images obtained through the abdomen and pelvis without contrast as ordered. Comparison: CT renal stone study February 22, 2015. Lung bases again demonstrates bibasilar atelectasis/scarring. No infiltrate or effusion. Heart is not enlarged. Noncontrasted stomach and bowel loops appear nonobstructed. Normal appendix. No free fluid/air. New 3 mm left UVJ calculus. Proximal left ureter mildly prominent along with moderate hydronephrosis consistent with partial obstructive uropathy. No perinephric fluid. Additional left mid renal punctate calculus. Head of the pancreas demonstrates a few punctate calcifications present from chronic pancreatitis. Stable fatty liver. Remaining liver, gallbladder, pancreas, spleen, adrenal glands, right kidney, right ureter, bladder, and uterus appear unremarkable for noncontrast exam. Mild aortoiliac calcifications without AAA. Osseous structures intact with minimal degenerative changes throughout the thoracolumbar spine. Impression: 1. New 3 mm left UVJ calculus producing partial obstruction as detailed. Additional left renal punctate calculus. 2. A few chronic pancreatitis calcifications. 3. Stable fatty liver. 4. Remaining CT abdomen/pelvis without contrast exam is negative.
--- NOTE | 2019-11-21 15:25 | ERPHSYRPT ---
- History of Present Illness Time Seen by Provider: 11/21/19 14:00 Historian: patient Exam Limitations: no limitations Patient Subjective Stated Complaint: Pt stated that she hasn't been feeling well for the past couple of weeks and she hasn't been able to eat or drink anything, she began vomiting last night and is extremely weak and short of breath Triage Nursing Assessment: Pt brought to the ER by her son, pt is extremely weak , tachycardic, pulses normal, afebrile, denies cough, mucus membranes dry Physician History: 79 years old female presented in the ER with chief complaint of generalized abdominal pain intermittently for last 2 weeks along with nausea but no vomiting until yesterday when she started to have multiple episodes of nonprojectile, nonbilious vomiting and is not able to hold anything down since last night. She is complaining of pain more in the upper abdomen of mild to moderate intensity without any significant aggravating or relieving factors. Denies any fever or chills. She is also complaining of coughing and some shortness of breath intermittently. Timing/Duration: week(s) (2), intermittent, worse Activities at Onset: rest Quality: aching, cramping, dullness Abdominal Pain Onset Location: epigastric, periumbilical Pain Radiation: no radiation Severity of Pain-Max: moderate Severity of Pain-Current: moderate Modifying Factors: Improves With: movement, palpation, vomiting Associated Symptoms: denies symptoms Previous symptoms: no prior history Allergies/Adverse Reactions: No Known Drug Allergies Allergy (Verified 11/21/19 17:45) Home Medications: Lovastatin 40 mg PO HS 02/22/15 [History] Omeprazole 20 mg PO DAILY 02/22/15 [History] Hx Tetanus, Diphtheria Vaccination/Date Given: No Hx Influenza Vaccination/Date Given: Yes Hx Pneumococcal Vaccination/Date Given: No Travel Risk - International Travel Have you traveled outside of the country in past 3 weeks: No Have you or anyone close to you been diagnosed with or: No Do your reside in a community with a known COVID-19 case?: No - Review of Systems Constitutional: No Symptoms Eyes: No Symptoms Ears, Nose, & Throat: No Symptoms Respiratory: No Symptoms Cardiac: No Symptoms Abdominal/Gastrointestinal: Abdominal Pain, Nausea, Vomiting, Appetite Changes Genitourinary Symptoms: No Symptoms Musculoskeletal: No Symptoms Skin: No Symptoms Neurological: No Symptoms Psychological: No Symptoms Endocrine: No Symptoms Hematologic/Lymphatic: No Symptoms Immunological/Allergic: No Symptoms - Past Medical History Pertinent Past Medical History: Yes Neurological History: No Pertinent History ENT History: No Pertinent History Cardiac History: High Cholesterol, Hypertension Respiratory History: No Pertinent History Endocrine Medical History: No Pertinent History Musculoskeletal History: No Pertinent History GI Medical History: GERD History: No Pertinent History Psycho-Social History: No Pertinent History Female Reproductive Disorders: No Pertinent History - Past Surgical History Past Surgical History: No Neuro Surgical History: No Pertinent History Cardiac: No Pertinent History Respiratory: No Pertinent History Gastrointestinal: No Pertinent History Genitourinary: No Pertinent History Musculoskeletal: No Pertinent History Female Surgical History: No Pertinent History - Social History Smoking Status: Never smoker Exposure to second hand smoke: No Drug Use: none Patient Lives Alone: Yes - Nursing Vital Signs Nursing Vital Signs: Initial Vital Signs Temperature 98.4 F 11/21/19 14:16 Pulse Rate 108 H 11/21/19 14:16 Respiratory Rate 23 11/21/19 14:16 Blood Pressure 132/82 11/21/19 14:16 O2 Sat by Pulse Oximetry 94 L 11/21/19 14:16 Pain Scale Pain Intensity 0 - Physical Exam General Appearance: no apparent distress Eye Exam: PERRL/EOMI, eyes nml inspection Ears, Nose, Throat Exam: normal ENT inspection, TMs normal, pharynx normal Neck Exam: normal inspection, non-tender, supple, full range of motion Respiratory Exam: normal breath sounds, lungs clear, No chest tenderness Cardiovascular Exam: regular rate/rhythm, normal heart sounds, normal peripheral pulses Gastrointestinal/Abdomen Exam: soft, tenderness (upper abd) Back Exam: normal inspection, normal range of motion Extremity Exam: normal inspection, normal range of motion, pelvis stable Neurologic Exam: alert, oriented x 3, cooperative, administrative appeals tribunal member II-XII nml as tested, normal mood/affect, nml cerebellar function, nml station & gait, sensation nml Skin Exam: normal color SpO2 Interpretation: normal SpO2: 94 O2 Delivery: Room Air Ordered Tests: Active Orders 24 hr Category Date Time Status Bedrest ROUTINE Activity 11/21/19 17:43 Active Up With Assistance ROUTINE Activity 11/21/19 17:43 Active Code Status Order ROUTINE Care 11/21/19 17:43 Active EKG-ER Only STAT Care 11/21/19 14:04 Completed IV Care Q6H Care 11/21/19 17:43 Active IV Insertion STAT Care 11/21/19 14:[address] in Observation ROUTINE Care 11/21/19 17:43 Active David Lujan, Apply ROUTINE Care 11/21/19 17:43 Active Regular Diet Diet 11/21/19 Breakfast Active ABDOMEN AND PELVIS W/0 CONTRAS [CT] Stat Exams 11/21/19 14:04 Completed AMYLASE Stat Lab 11/21/19 14:00 Completed CBC W DIFF AM.LAB Lab 11/22/19 04:00 Ordered CBC W DIFF Stat Lab 11/21/19 14:00 Completed CMP AM.LAB Lab 11/22/19 04:00 Ordered CMP Stat Lab 11/21/19 14:00 Completed CULTURE,URINE Stat Lab 11/21/19 14:28 Received Lactic Acid Stat Lab 11/21/19 14:12 Completed Lactic Acid Stat Lab 11/21/19 16:15 Completed Manual Differential NC Stat Lab 11/21/19 14:00 Completed TROPONIN Q3H Lab 11/21/19 14:15 Completed TROPONIN Q3H Lab 11/21/19 17:15 Completed TROPONIN Q3H Lab 11/21/19 20:24 Completed TROPONIN Q3H Lab 11/21/19 23:15 Ordered TROPONIN Q3H Lab 11/22/19 02:15 Ordered UA W/RFX UR CULTURE Stat Lab 11/21/19 14:28 Completed Transfer Order Routine Transfer 11/21/19 Completed Medication Summary Generic Name Dose Route Start Last Admin Trade Name Freq PRN Reason Stop Dose Admin Hydrocodone Bitart/Acetaminophen 1 tab 11/21/19 18:14 [place] 5/325 Mg PO 11/26/19 18:13 Q6HPRN PRN PAIN Famotidine 20 mg 11/21/19 22:00 11/21/19 21:29 Pepcid 20 Mg Vial IV 12/21/19 21:59 20 mg Q12HT SANDRA Administration Ceftriaxone Sodium/Dextrose 1 g in 50 mls @ 100 mls/hr 11/22/19 10:00 Rocephin 1 Gm-D5w 50 Ml Bag IV 12/22/19 09:59 Q24H10 SANDRA Sodium Chloride 1,000 mls @ 100 mls/hr 11/21/19 17:43 11/21/19 18:48 Sodium Chloride 0.9% 1000 Ml IV 12/21/19 17:42 100 mls/hr .Q10H SANDRA Administration Morphine Sulfate 4 mg 11/21/19 17:43 Morphine Sulfate 4 Mg Inj IV 11/26/19 17:42 Q4H PRN PRN PAIN Ondansetron HCl 4 mg 11/21/19 17:43 Zofran 4 Mg/2 Ml Vial IV 12/21/19 17:42 Q6H PRN PRN NAUSEA/VOMITING Zolpidem Tartrate 5 mg 11/21/19 22:00 11/21/19 21:29 Ambien 5 Mg Tablet PO 12/21/19 21:59 5 mg HS SANDRA Administration Discontinued Medications Generic Name Dose Route Start Last Admin Trade Name Freq PRN Reason Stop Dose Admin Sodium Chloride 1,000 mls @ 999 mls/hr 11/21/19 14:04 11/21/19 15:55 Sodium Chloride 0.9% 1000 Ml IV 11/21/19 15:04 Infused .Q1H1M STA Infusion Sodium Chloride Confirm 11/21/19 14:45 Sodium Chloride 0.9% 1000 Ml Administered 11/21/19 14:46 Dose 1,000 mls @ ud .ROUTE .STK-MED ONE Ceftriaxone Sodium/Dextrose 1 g in 50 mls @ 100 mls/hr 11/21/19 15:36 16:50 Rocephin 1 Gm-D5w 50 Ml Bag IV 11/21/19 16:05 Infused STAT STA Infusion Ceftriaxone Sodium/Dextrose Confirm 11/21/19 16:08 Rocephin 1 Gm-D5w 50 Ml Bag Administered 11/21/19 16:09 Dose 1 g in 50 mls @ ud IV .STK-MED ONE Ondansetron HCl 4 mg 11/21/19 14:04 11/21/19 14:47 Zofran 4 Mg/2 Ml Vial IV 11/21/19 14:05 4 mg STAT ONE Administration Ondansetron HCl Confirm 11/21/19 14:45 Zofran 4 Mg/2 Ml Vial Administered 11/21/19 14:46 Dose 4 mg .ROUTE .STK-MED ONE Tamsulosin HCl 0.4 mg 11/22/19 10:00 11/21/19 16:41 Flomax 0.4 Mg PO 12/22/19 09:59 0.4 mg DAILY SANDRA Administration Tamsulosin HCl Confirm 11/21/19 16:42 Flomax 0.4 Mg Administered 11/21/19 16:43 Dose 0.4 mg .ROUTE .STK-MED ONE Lab/Rad Data: Laboratory Result Diagrams 11/21/19 14:00 11/21/19 14:00 Laboratory Results 11/21/19 11/21/19 11/21/19 Range/Units 17:15 16:15 14:28 WBC (4.0-10.5) K/mm3 RBC (4.1-5.4) M/mm3 Hgb (12.0-16.0) gm/dl Hct (35-47) % MCV (78-100) fl MCH (26-32) pg MCHC (32-36) g/dl RDW (11.5-14.0) % Plt Count (150-450) K/mm3 MPV (7.5-11.0) fl Segmented Neutrophils (36.0-66.0) % Lymphocytes (Manual) (24-44) % Monocytes (Manual) (0.0-12.0) % Platelet Estimate (NORMAL) RBC Morphology Sodium (137-145) mmol/L Potassium (3.5-5.1) mmol/L Chloride (98-107) mmol/L Carbon Dioxide (22-30) mmol/L Anion Gap (5-15) MEQ/L BUN (7-17) mg/dL Creatinine (0.52-1.04) mg/dL Estimated GFR ML/MIN Glucose (74-106) mg/dL Lactic Acid 1.3 (0.4-2.0) Calcium (8.4-10.2) mg/dL Total Bilirubin (0.2-1.3) mg/dL AST (14-36) U/L ALT (0-35) U/L Alkaline Phosphatase (38-126) U/L Troponin I < 0.012 (0.000-0.034) ng/mL Serum Total Protein (6.3-8.2) g/dL Albumin (3.5-5.0) g/dL Amylase (30-110) U/L Urine Color YELLOW (YELLOW) Urine Appearance CLOUDY (CLEAR) Urine pH 5.0 (5-6) Ur Specific Otter 1.021 (1.005-1.025) Urine Protein 100 (Negative) Urine Ketones TRACE (NEGATIVE) Urine Blood LARGE (0-5) William/ul Urine Nitrite NEGATIVE (NEGATIVE) Urine Bilirubin NEGATIVE (NEGATIVE) Urine Urobilinogen NEGATIVE (0-1) mg/dL Ur Leukocyte Esterase TRACE (NEGATIVE) Urine WBC (Auto) 6-10 (0-5) /HPF Urine RBC (Auto) 51-100 (0-2) /HPF U Hyaline Cast (Auto) 6-10 (0-2) /LPF U Epithel Cells (Auto) RARE (FEW) /HPF Urine Bacteria (Auto) NONE (NEGATIVE) /HPF Urine Mucus (Auto) SLIGHT (NEGATIVE) /HPF Urine Culture Reflexed YES (NO) Urine Glucose NEGATIVE (NEGATIVE) mg/dL 11/21/19 11/21/19 11/21/19 Range/Units 14:15 14:12 14:00 WBC (4.0-10.5) K/mm3 RBC (4.1-5.4) M/mm3 Hgb (12.0-16.0) gm/dl Hct (35-47) % MCV (78-100) fl MCH (26-32) pg MCHC (32-36) g/dl RDW (11.5-14.0) % Plt Count (150-450) K/mm3 MPV (7.5-11.0) fl Segmented Neutrophils (36.0-66.0) % Lymphocytes (Manual) (24-44) % Monocytes (Manual) (0.0-12.0) % Platelet Estimate (NORMAL) RBC Morphology Sodium 140 (137-145) mmol/L Potassium 3.2 L (3.5-5.1) mmol/L Chloride 103 (98-107) mmol/L Carbon Dioxide 24 (22-30) mmol/L Anion Gap 16.3 H (5-15) MEQ/L BUN 38 H (7-17) mg/dL Creatinine 1.50 H (0.52-1.04) mg/dL Estimated GFR 35.8 ML/MIN Glucose 144 H (74-106) mg/dL Lactic Acid 2.8 H (0.4-2.0) Calcium 9.1 (8.4-10.2) mg/dL Total Bilirubin 0.70 (0.2-1.3) mg/dL AST 29 (14-36) U/L ALT 18 (0-35) U/L Alkaline Phosphatase 174 H (38-126) U/L Troponin I < 0.012 (0.000-0.034) ng/mL Serum Total Protein 10.2 H (6.3-8.2) g/dL Albumin 4.3 (3.5-5.0) g/dL Amylase 115 H (30-110) U/L Urine Color (YELLOW) Urine Appearance (CLEAR) Urine pH (5-6) Ur Specific Ot[place] (1.005-1.025) Urine Protein (Negative) Urine Ketones (NEGATIVE) Urine Blood (0-5) William/ul Urine Nitrite (NEGATIVE) Urine Bilirubin (NEGATIVE) Urine Urobilinogen (0-1) mg/dL Ur Leukocyte Esterase (NEGATIVE) Urine WBC (Auto) (0-5) /HPF Urine RBC (Auto) (0-2) /HPF U Hyaline Cast (Auto) (0-2) /LPF U Epithel Cells (Auto) (FEW) /HPF Urine Bacteria (Auto) (NEGATIVE) /HPF Urine Mucus (Auto) (NEGATIVE) /HPF Urine Culture Reflexed (NO) Urine Glucose (NEGATIVE) mg/dL 11/21/19 Range/Units 14:00 WBC 20.3 H (4.0-10.5) K/mm3 RBC 5.26 (4.1-5.4) M/mm3 Hgb 13.0 (12.0-16.0) gm/dl Hct 40.2 (35-47) % MCV 76.4 L (78-100) fl MCH 24.7 L (26-32) pg MCHC 32.3 (32-36) g/dl RDW 17.5 H (11.5-14.0) % Plt Count 473 H (150-450) K/mm3 MPV 10.4 (7.5-11.0) fl Segmented Neutrophils 79 H (36.0-66.0) % Lymphocytes (Manual) 16 L (24-44) % Monocytes (Manual) 5 (0.0-12.0) % Platelet Estimate NORMAL (NORMAL) RBC Morphology NORMAL Sodium (137-145) mmol/L Potassium (3.5-5.1) mmol/L Chloride (98-107) mmol/L Carbon Dioxide (22-30) mmol/L Anion Gap (5-15) MEQ/L BUN (7-17) mg/dL Creatinine (0.52-1.04) mg/dL Estimated GFR ML/MIN Glucose (74-106) mg/dL Lactic Acid (0.4-2.0) Calcium (8.4-10.2) mg/dL Total Bilirubin (0.2-1.3) mg/dL AST (14-36) U/L ALT (0-35) U/L Alkaline Phosphatase (38-126) U/L Troponin I (0.000-0.034) ng/mL Serum Total Protein (6.3-8.2) g/dL Albumin (3.5-5.0) g/dL Amylase (30-110) U/L Urine Color (YELLOW) Urine Appearance (CLEAR) Urine pH (5-6) Ur Specific [place] (1.005-1.025) Urine Protein (Negative) Urine Ketones (NEGATIVE) Urine Blood (0-5) William/ul Urine Nitrite (NEGATIVE) Urine Bilirubin (NEGATIVE) Urine Urobilinogen (0-1) mg/dL Ur Leukocyte Esterase (NEGATIVE) Urine WBC (Auto) (0-5) /HPF Urine RBC (Auto) (0-2) /HPF U Hyaline Cast (Auto) (0-2) /LPF U Epithel Cells (Auto) (FEW) /HPF Urine Bacteria (Auto) (NEGATIVE) /HPF Urine Mucus (Auto) (NEGATIVE) /HPF Urine Culture Reflexed (NO) Urine Glucose (NEGATIVE) mg/dL - Progress Progress: improved, pain not gone completely, re-examined Progress Note: 72 years old is evaluated for abdominal pain with vomiting. She is given IV fluids and Zofran. She refused pain medications. Work-up showed white count of 20 K and elevated lactate of 2.8. She also has UTI and CT showed 3 mm stone with obstructive uropathy. Patient is probably going into urosepsis. Started on antibiotics. Discussed with Dr. Lacey and patient is being admitted. Discussed with : Francheska Will see patient in: hospital (observation) Counseled pt/family regarding: lab results, diagnosis, rad results - Departure Departure Disposition: Observation Clinical Impression: Sepsis secondary to UTI, Obstructive uropathy, MIKAL (acute kidney injury) Condition: Stable Critical Care Time: No
[2019-11-21] MEDS ORDERED: ROCEPHIN 1 Gm-D5w 50 ml Bag** 1 G/50 ML IVPB IV STA (15:36)
[2019-11-21 15:43] LABS: Lymphocytes 16 % (24-44); Monocyte 5 % (0.0-12.0); Neutrophils 79 % (36.0-66.0); Total Cells Counted 100
[2019-11-21 15:44] LABS: Platelet Estimate NORMAL (NORMAL)
[2019-11-21] MEDS ORDERED: ROCEPHIN 1 Gm-D5w 50 ml Bag** 1 G/50 ML IVPB IV ONE (16:08)
[2019-11-21] MEDS ORDERED: Flomax 0.4 MG ONE (16:42)
[2019-11-21] MEDS ORDERED: Zofran 4 MG/2 ML VIAL IV PRN (17:43)
[2019-11-21] MEDS ORDERED: MORPHINE SULFATE 4 MG INJ IV PRN (17:43)
[2019-11-21] MEDS ORDERED: NORCO 5/325 MG PO PRN (18:14)
[2019-11-21] MEDS: Sodium Chloride 0.9% 1000 ML 1,000 ML IV SCH (18:48)
[2019-11-21] MEDS: Pepcid 20 MG VIAL IV SCH (21:29)
[2019-11-21] MEDS ORDERED: Ambien 5 MG Tablet PO SCH (22:00)
[2019-11-22 04:23] LABS: ALBUMIN 3.4 g/dL (3.5-5.0); ANION GAP 13.4 MEQ/L (5-15); BILIRUBIN,TOTAL 0.5 mg/dL (0.2-1.3); Calcium 7.8 mg/dL (8.4-10.2); Creatinine 1 1.19 mg/dL (0.52-1.04); Potassium 3.2 mmol/L (3.5-5.1); Total Protein 8.2 g/dL (6.3-8.2)
[2019-11-22] MEDS: Sodium Chloride 0.9% 1000 ML 1,000 ML IV SCH (04:26)
[2019-11-22 04:47] LABS: Hematocrit 35.3 % (35-47); Mean Cell Volume 78.8 fl (78-100); Mean Corpuscular Hemoglobin 24.6 pg (26-32); Mean Corpuscular Hgb Concent. 31.2 g/dl (32-36); Mean Platelet Volume 10.4 fl (7.5-11.0); Platelet Count 338 K/mm3 (150-450); Red Blood Count 4.48 M/mm3 (4.1-5.4); Red Cell Distribution Width 17.4 % (11.5-14.0); White Blood Count 14.2 K/mm3 (4.0-10.5)
[2019-11-22 06:08] LABS: ATYPICAL LYMPHS 1 %; BAND 4 % (0.0-2.0); Basophil 1 % (0.0-1.0); Eosinophil 3 % (0.00-3.0); Lymphocytes 18 % (24-44); Monocyte 6 % (0.0-12.0); Neutrophils 67 % (36.0-66.0); Total Cells Counted 100
[2019-11-22 06:10] LABS: Platelet Estimate NORMAL (NORMAL)
[2019-11-22 06:11] LABS: Absolute Neutrophil Ct (ANC) 10.1 (1.4-6.9)
--- NOTE | 2019-11-22 08:42 | PCM.SSS ---
History of Present Illness - Chief Complaint Chief Complaint: UROSEPSIS History of Present Illness: is a 79 year old female with several days of feeling poorly, poor po intake, vomiting and flank/abd pain. found to have renal stone, stone was collected overnight. her pain and vomiting are resolved, she feels totally better today and has no complaints. - Review of Systems Constitutional: No Symptoms Respiratory: No Cough, No Short Of Breath Cardiac: No Chest Pain, No Edema, No Syncope Abdominal/Gastrointestinal: Abdominal Pain, Nausea, Vomiting Genitourinary Symptoms: Frequency Skin: No Rash All Other Systems: Reviewed and Negative Medications & Allergies Home Medications: Home Medication List Lovastatin 40 mg PO HS 02/22/15 [History Confirmed 11/21/19] Omeprazole 20 mg PO DAILY 02/22/15 [History Confirmed 11/21/19] Lisinopril/Hydrochlorothiazide [Lisinopril-Hctz 20-12.5 mg Tab] 1 each PO DAILY 11/22/19 [History Confirmed 11/22/19] Smz/Tmp Ds Tablet [Bactrim Ds Tablet] 1 tab PO Q12H #10 tablet 11/22/19 [ Rx] Allergies/Adverse Reactions: Allergies Allergy/AdvReac Type Severity Reaction Status Date / Time No Known Drug Allergies Allergy Verified 11/21/19 17:45 - Past Medical History Past Medical History: Yes Neurological History: No Pertinent History ENT History: No Pertinent History Cardiac History: High Cholesterol, Hypertension Respiratory History: No Pertinent History Endocrine Medical History: No Pertinent History Musculoskelatal History: No Pertinent History GI Medical History: GERD History: No Pertinent History Pyscho-Social History: No Pertinent History Reproductive Disorders: No Pertinent History - Past Surgical History Past Surgical History: No Neuro Surgical History: No Pertinent History Cardiac History: No Pertinent History Respiratory Surgery: No Pertinent History GI Surgical History: No Pertinent History Genitourinary Surgical Hx: No Pertinent History Musculskeletal Surgical Hx: No Pertinent History Female Surgical History: No Pertinent History - Social History Smoking Status: Never smoker Exposure to second hand smoke: No Alcohol: None Drug Use: none - Physical Exam Vital Signs: Vital Signs - 24 hr Temp Pulse Resp BP Pulse Ox 11/22/19 07:11 98.4 F 66 24 157/73 96 11/22/19 04:00 98.0 F 68 17 134/66 95 11/21/19 23:26 98.8 F 91 H 22 136/83 96 11/21/19 23:25 94 L 11/21/19 19:16 98.5 F 72 17 125/62 94 L 11/21/19 17:45 98.6 F 73 18 153/72 94 L 11/21/19 15:57 76 21 146/100 97 11/21/19 15:56 76 21 146/100 97 11/21/19 15:52 86 21 146/100 97 11/21/19 14:16 98.4 F 108 H 23 132/82 94 L General Appearance: no apparent distress, alert Neurologic Exam: alert, oriented x 3, cooperative Respiratory Exam: normal breath sounds, lungs clear, No respiratory distress Cardiovascular Exam: regular rate/rhythm, normal heart sounds, normal peripheral pulses Gastrointestinal/Abdomen Exam: soft, normal bowel sounds, No tenderness, No mass Extremity Exam: normal inspection, normal range of motion, pelvis stable Skin Exam: normal color, warm, dry, No rash Results - Labs Lab/Micro Results: Lab Results-Last 24 Hours 11/21/19 11/21/19 11/21/19 Range/Units 14:00 14:00 14:12 WBC 20.3 H (4.0-10.5) K/mm3 RBC 5.26 (4.1-5.4) M/mm3 Hgb 13.0 (12.0-16.0) gm/dl Hct 40.2 (35-47) % MCV 76.4 L (78-100) fl MCH 24.7 L (26-32) pg MCHC 32.3 (32-36) g/dl RDW 17.5 H (11.5-14.0) % Plt Count 473 H (150-450) K/mm3 MPV 10.4 (7.5-11.0) fl Absolute Granulocytes (1.4-6.9) Segmented Neutrophils 79 H (36.0-66.0) % Band Neutrophils (0.0-2.0) % Lymphocytes (Manual) 16 L (24-44) % Monocytes (Manual) 5 (0.0-12.0) % Eosinophils (Manual) (0.00-3.0) % Basophils (Manual) (0.0-1.0) % Atypical Lymphocytes % Platelet Estimate NORMAL (NORMAL) RBC Morphology NORMAL Sodium 140 (137-145) mmol/L Potassium 3.2 L (3.5-5.1) mmol/L Chloride 103 (98-107) mmol/L Carbon Dioxide 24 (22-30) mmol/L Anion Gap 16.3 H (5-15) MEQ/L BUN 38 H (7-17) mg/dL Creatinine 1.50 H (0.52-1.04) mg/dL Estimated GFR 35.8 ML/MIN Glucose 144 H (74-106) mg/dL Lactic Acid 2.8 H (0.4-2.0) Calcium 9.1 (8.4-10.2) mg/dL Total Bilirubin 0.70 (0.2-1.3) mg/dL AST 29 (14-36) U/L ALT 18 (0-35) U/L Alkaline Phosphatase 174 H (38-126) U/L Troponin I (0.000-0.034) ng/mL Serum Total Protein 10.2 H (6.3-8.2) g/dL Albumin 4.3 (3.5-5.0) g/dL Amylase 115 H (30-110) U/L Urine Color (YELLOW) Urine Appearance (CLEAR) Urine pH (5-6) Ur Specific [place] (1.005-1.025) Urine Protein (Negative) Urine Ketones (NEGATIVE) Urine Blood (0-5) William/ul Urine Nitrite (NEGATIVE) Urine Bilirubin (NEGATIVE) Urine Urobilinogen (0-1) mg/dL Ur Leukocyte Esterase (NEGATIVE) Urine WBC (Auto) (0-5) /HPF Urine RBC (Auto) (0-2) /HPF U Hyaline Cast (Auto) (0-2) /LPF U Epithel Cells (Auto) (FEW) /HPF Urine Bacteria (Auto) (NEGATIVE) /HPF Urine Mucus (Auto) (NEGATIVE) /HPF Urine Culture Reflexed (NO) Urine Glucose (NEGATIVE) mg/dL 11/21/19 11/21/19 11/21/19 Range/Units 14:15 14:28 16:15 WBC (4.0-10.5) K/mm3 RBC (4.1-5.4) M/mm3 Hgb (12.0-16.0) gm/dl Hct (35-47) % MCV (78-100) fl MCH (26-32) pg MCHC (32-36) g/dl RDW (11.5-14.0) % Plt Count (150-450) K/mm3 MPV (7.5-11.0) fl Absolute Granulocytes (1.4-6.9) Segmented Neutrophils (36.0-66.0) % Band Neutrophils (0.0-2.0) % Lymphocytes (Manual) (24-44) % Monocytes (Manual) (0.0-12.0) % Eosinophils (Manual) (0.00-3.0) % Basophils (Manual) (0.0-1.0) % Atypical Lymphocytes % Platelet Estimate (NORMAL) RBC Morphology Sodium (137-145) mmol/L Potassium (3.5-5.1) mmol/L Chloride (98-107) mmol/L Carbon Dioxide (22-30) mmol/L Anion Gap (5-15) MEQ/L BUN (7-17) mg/dL Creatinine (0.52-1.04) mg/dL Estimated GFR ML/MIN Glucose (74-106) mg/dL Lactic Acid 1.3 (0.4-2.0) Calcium (8.4-10.2) mg/dL Total Bilirubin (0.2-1.3) mg/dL AST (14-36) U/L ALT (0-35) U/L Alkaline Phosphatase (38-126) U/L Troponin I < 0.012 (0.000-0.034) ng/mL Serum Total Protein (6.3-8.2) g/dL Albumin (3.5-5.0) g/dL Amylase (30-110) U/L Urine Color YELLOW (YELLOW) Urine Appearance CLOUDY (CLEAR) Urine pH 5.0 (5-6) Ur Specific [place] 1.021 (1.005-1.025) Urine Protein 100 (Negative) Urine Ketones TRACE (NEGATIVE) Urine Blood LARGE (0-5) William/ul Urine Nitrite NEGATIVE (NEGATIVE) Urine Bilirubin NEGATIVE (NEGATIVE) Urine Urobilinogen NEGATIVE (0-1) mg/dL Ur Leukocyte Esterase TRACE (NEGATIVE) Urine WBC (Auto) 6-10 (0-5) /HPF Urine RBC (Auto) 51-100 (0-2) /HPF U Hyaline Cast (Auto) 6-10 (0-2) /LPF U Epithel Cells (Auto) RARE (FEW) /HPF Urine Bacteria (Auto) NONE (NEGATIVE) /HPF Urine Mucus (Auto) SLIGHT (NEGATIVE) /HPF Urine Culture Reflexed YES (NO) Urine Glucose NEGATIVE (NEGATIVE) mg/dL 11/21/19 11/21/19 11/21/19 Range/Units 17:15 20:24 23:38 WBC (4.0-10.5) K/mm3 RBC (4.1-5.4) M/mm3 Hgb (12.0-16.0) gm/dl Hct (35-47) % MCV (78-100) fl MCH (26-32) pg MCHC (32-36) g/dl RDW (11.5-14.0) % Plt Count (150-450) K/mm3 MPV (7.5-11.0) fl Absolute Granulocytes (1.4-6.9) Segmented Neutrophils (36.0-66.0) % Band Neutrophils (0.0-2.0) % Lymphocytes (Manual) (24-44) % Monocytes (Manual) (0.0-12.0) % Eosinophils (Manual) (0.00-3.0) % Basophils (Manual) (0.0-1.0) % Atypical Lymphocytes % Platelet Estimate (NORMAL) RBC Morphology Sodium (137-145) mmol/L Potassium (3.5-5.1) mmol/L Chloride (98-107) mmol/L Carbon Dioxide (22-30) mmol/L Anion Gap (5-15) MEQ/L BUN (7-17) mg/dL Creatinine (0.52-1.04) mg/dL Estimated GFR ML/MIN Glucose (74-106) mg/dL Lactic Acid (0.4-2.0) Calcium (8.4-10.2) mg/dL Total Bilirubin (0.2-1.3) mg/dL AST (14-36) U/L ALT (0-35) U/L Alkaline Phosphatase (38-126) U/L Troponin I < 0.012 < 0.012 < 0.012 (0.000-0.034) ng/mL Serum Total Protein (6.3-8.2) g/dL Albumin (3.5-5.0) g/dL Amylase (30-110) U/L Urine Color (YELLOW) Urine Appearance (CLEAR) Urine pH (5-6) Ur Specific [place] (1.005-1.025) Urine Protein (Negative) Urine Ketones (NEGATIVE) Urine Blood (0-5) William/ul Urine Nitrite (NEGATIVE) Urine Bilirubin (NEGATIVE) Urine Urobilinogen (0-1) mg/dL Ur Leukocyte Esterase (NEGATIVE) Urine WBC (Auto) (0-5) /HPF Urine RBC (Auto) (0-2) /HPF U Hyaline Cast (Auto) (0-2) /LPF U Epithel Cells (Auto) (FEW) /HPF Urine Bacteria (Auto) (NEGATIVE) /HPF Urine Mucus (Auto) (NEGATIVE) /HPF Urine Culture Reflexed (NO) Urine Glucose (NEGATIVE) mg/dL 11/22/19 11/22/19 11/22/19 Range/Units 04:11 04:11 04:11 WBC 14.2 H (4.0-10.5) K/mm3 RBC 4.48 (4.1-5.4) M/mm3 Hgb 11.0 L (12.0-16.0) gm/dl Hct 35.3 (35-47) % MCV 78.8 (78-100) fl MCH 24.6 L (26-32) pg MCHC 31.2 L (32-36) g/dl RDW 17.4 H (11.5-14.0) % Plt Count 338 (150-450) K/mm3 MPV 10.4 (7.5-11.0) fl Absolute Granulocytes 10.1 H (1.4-6.9) Segmented Neutrophils 67 H (36.0-66.0) % Band Neutrophils 4 H (0.0-2.0) % Lymphocytes (Manual) 18 L (24-44) % Monocytes (Manual) 6 (0.0-12.0) % Eosinophils (Manual) 3 (0.00-3.0) % Basophils (Manual) 1 (0.0-1.0) % Atypical Lymphocytes 1 % Platelet Estimate NORMAL (NORMAL) RBC Morphology NORMAL Sodium 144 (137-145) mmol/L Potassium 3.2 L (3.5-5.1) mmol/L Chloride 106 (98-107) mmol/L Carbon Dioxide 27 (22-30) mmol/L Anion Gap 13.4 (5-15) MEQ/L BUN 31 H (7-17) mg/dL Creatinine 1.19 H (0.52-1.04) mg/dL Estimated GFR 46.7 ML/MIN Glucose 105 (74-106) mg/dL Lactic Acid (0.4-2.0) Calcium 7.8 L (8.4-10.2) mg/dL Total Bilirubin 0.50 (0.2-1.3) mg/dL AST 23 (14-36) U/L ALT 14 (0-35) U/L Alkaline Phosphatase 123 (38-126) U/L Troponin I < 0.012 (0.000-0.034) ng/mL Serum Total Protein 8.2 (6.3-8.2) g/dL Albumin 3.4 L (3.5-5.0) g/dL Amylase (30-110) U/L Urine Color (YELLOW) Urine Appearance (CLEAR) Urine pH (5-6) Ur Specific [place] (1.005-1.025) Urine Protein (Negative) Urine Ketones (NEGATIVE) Urine Blood (0-5) William/ul Urine Nitrite (NEGATIVE) Urine Bilirubin (NEGATIVE) Urine Urobilinogen (0-1) mg/dL Ur Leukocyte Esterase (NEGATIVE) Urine WBC (Auto) (0-5) /HPF Urine RBC (Auto) (0-2) /HPF U Hyaline Cast (Auto) (0-2) /LPF U Epithel Cells (Auto) (FEW) /HPF Urine Bacteria (Auto) (NEGATIVE) /HPF Urine Mucus (Auto) (NEGATIVE) /HPF Urine Culture Reflexed (NO) Urine Glucose (NEGATIVE) mg/dL - Radiology Impressions Radiology Exams & Impressions: Radiology Procedures Category Date Time Status ABDOMEN AND PELVIS W/0 CONTRAS [CT] Stat Exams 11/21/19 14:04 Completed Assessment/Plan (1) Right ureteral calculus Current Visit: No Status: Acute Code(s): N20.1 - CALCULUS OF URETER (2) UTI (urinary tract infection) Current Visit: No Status: Acute Qualifiers: Urinary tract infection type: acute cystitis Hematuria presence: without hematuria Qualified Code(s): N30.00 - Acute cystitis without hematuria Code(s): N39.0 - URINARY TRACT INFECTION, SITE NOT SPECIFIED (3) MIKAL (acute kidney injury) Current Visit: Yes Status: Acute Assessment & Plan: resolved with hydration Code(s): N17.9 - ACUTE KIDNEY FAILURE, UNSPECIFIED Hospital Summary - Vitals & Intake/Output Vital Signs: Vital Signs Temperature 98.4 F 11/22/19 07:11 Pulse Rate 66 11/22/19 07:11 Respiratory Rate 24 11/22/19 07:11 Blood Pressure 157/73 11/22/19 07:11 O2 Sat by Pulse Oximetry 96 11/22/19 07:11 Intake & Output: Intake & Output 11/19/19 11/20/19 11/21/19 11/22/19 11:59 11:59 11:59 11:59 Intake Total 1347 Output Total 650 Balance 697 Weight 76.2 kg - Lab Result Diagrams: 11/22/19 04:11 11/22/19 04:11 Lab Results-Last 24 Hrs: Lab Results-Last 24 Hours 11/21/19 11/21/19 11/21/19 Range/Units 14:00 14:00 14:12 WBC 20.3 H (4.0-10.5) K/mm3 RBC 5.26 (4.1-5.4) M/mm3 Hgb 13.0 (12.0-16.0) gm/dl Hct 40.2 (35-47) % MCV 76.4 L (78-100) fl MCH 24.7 L (26-32) pg MCHC 32.3 (32-36) g/dl RDW 17.5 H (11.5-14.0) % Plt Count 473 H (150-450) K/mm3 MPV 10.4 (7.5-11.0) fl Absolute Granulocytes (1.4-6.9) Segmented Neutrophils 79 H (36.0-66.0) % Band Neutrophils (0.0-2.0) % Lymphocytes (Manual) 16 L (24-44) % Monocytes (Manual) 5 (0.0-12.0) % Eosinophils (Manual) (0.00-3.0) % Basophils (Manual) (0.0-1.0) % Atypical Lymphocytes % Platelet Estimate NORMAL (NORMAL) RBC Morphology NORMAL Sodium 140 (137-145) mmol/L Potassium 3.2 L (3.5-5.1) mmol/L Chloride 103 (98-107) mmol/L Carbon Dioxide 24 (22-30) mmol/L Anion Gap 16.3 H (5-15) MEQ/L BUN 38 H (7-17) mg/dL Creatinine 1.50 H (0.52-1.04) mg/dL Estimated GFR 35.8 ML/MIN Glucose 144 H (74-106) mg/dL Lactic Acid 2.8 H (0.4-2.0) Calcium 9.1 (8.4-10.2) mg/dL Total Bilirubin 0.70 (0.2-1.3) mg/dL AST 29 (14-36) U/L ALT 18 (0-35) U/L Alkaline Phosphatase 174 H (38-126) U/L Troponin I (0.000-0.034) ng/mL Serum Total Protein 10.2 H (6.3-8.2) g/dL Albumin 4.3 (3.5-5.0) g/dL Amylase 115 H (30-110) U/L Urine Color (YELLOW) Urine Appearance (CLEAR) Urine pH (5-6) Ur Specific [place] (1.005-1.025) Urine Protein (Negative) Urine Ketones (NEGATIVE) Urine Blood (0-5) William/ul Urine Nitrite (NEGATIVE) Urine Bilirubin (NEGATIVE) Urine Urobilinogen (0-1) mg/dL Ur Leukocyte Esterase (NEGATIVE) Urine WBC (Auto) (0-5) /HPF Urine RBC (Auto) (0-2) /HPF U Hyaline Cast (Auto) (0-2) /LPF U Epithel Cells (Auto) (FEW) /HPF Urine Bacteria (Auto) (NEGATIVE) /HPF Urine Mucus (Auto) (NEGATIVE) /HPF Urine Culture Reflexed (NO) Urine Glucose (NEGATIVE) mg/dL 11/21/19 11/21/19 11/21/19 Range/Units 14:15 14:28 16:15 WBC (4.0-10.5) K/mm3 RBC (4.1-5.4) M/mm3 Hgb (12.0-16.0) gm/dl Hct (35-47) % MCV (78-100) fl MCH (26-32) pg MCHC (32-36) g/dl RDW (11.5-14.0) % Plt Count (150-450) K/mm3 MPV (7.5-11.0) fl Absolute Granulocytes (1.4-6.9) Segmented Neutrophils (36.0-66.0) % Band Neutrophils (0.0-2.0) % Lymphocytes (Manual) (24-44) % Monocytes (Manual) (0.0-12.0) % Eosinophils (Manual) (0.00-3.0) % Basophils (Manual) (0.0-1.0) % Atypical Lymphocytes % Platelet Estimate (NORMAL) RBC Morphology Sodium (137-145) mmol/L Potassium (3.5-5.1) mmol/L Chloride (98-107) mmol/L Carbon Dioxide (22-30) mmol/L Anion Gap (5-15) MEQ/L BUN (7-17) mg/dL Creatinine (0.52-1.04) mg/dL Estimated GFR ML/MIN Glucose (74-106) mg/dL Lactic Acid 1.3 (0.4-2.0) Calcium (8.4-10.2) mg/dL Total Bilirubin (0.2-1.3) mg/dL AST (14-36) U/L ALT (0-35) U/L Alkaline Phosphatase (38-126) U/L Troponin I < 0.012 (0.000-0.034) ng/mL Serum Total Protein (6.3-8.2) g/dL Albumin (3.5-5.0) g/dL Amylase (30-110) U/L Urine Color YELLOW (YELLOW) Urine Appearance CLOUDY (CLEAR) Urine pH 5.0 (5-6) Ur Specific [place] 1.021 (1.005-1.025) Urine Protein 100 (Negative) Urine Ketones TRACE (NEGATIVE) Urine Blood LARGE (0-5) William/ul Urine Nitrite NEGATIVE (NEGATIVE) Urine Bilirubin NEGATIVE (NEGATIVE) Urine Urobilinogen NEGATIVE (0-1) mg/dL Ur Leukocyte Esterase TRACE (NEGATIVE) Urine WBC (Auto) 6-10 (0-5) /HPF Urine RBC (Auto) 51-100 (0-2) /HPF U Hyaline Cast (Auto) 6-10 (0-2) /LPF U Epithel Cells (Auto) RARE (FEW) /HPF Urine Bacteria (Auto) NONE (NEGATIVE) /HPF Urine Mucus (Auto) SLIGHT (NEGATIVE) /HPF Urine Culture Reflexed YES (NO) Urine Glucose NEGATIVE (NEGATIVE) mg/dL 11/21/19 11/21/19 11/21/19 Range/Units 17:15 20:24 23:38 WBC (4.0-10.5) K/mm3 RBC (4.1-5.4) M/mm3 Hgb (12.0-16.0) gm/dl Hct (35-47) % MCV (78-100) fl MCH (26-32) pg MCHC (32-36) g/dl RDW (11.5-14.0) % Plt Count (150-450) K/mm3 MPV (7.5-11.0) fl Absolute Granulocytes (1.4-6.9) Segmented Neutrophils (36.0-66.0) % Band Neutrophils (0.0-2.0) % Lymphocytes (Manual) (24-44) % Monocytes (Manual) (0.0-12.0) % Eosinophils (Manual) (0.00-3.0) % Basophils (Manual) (0.0-1.0) % Atypical Lymphocytes % Platelet Estimate (NORMAL) RBC Morphology Sodium (137-145) mmol/L Potassium (3.5-5.1) mmol/L Chloride (98-107) mmol/L Carbon Dioxide (22-30) mmol/L Anion Gap (5-15) MEQ/L BUN (7-17) mg/dL Creatinine (0.52-1.04) mg/dL Estimated GFR ML/MIN Glucose (74-106) mg/dL Lactic Acid (0.4-2.0) Calcium (8.4-10.2) mg/dL Total Bilirubin (0.2-1.3) mg/dL AST (14-36) U/L ALT (0-35) U/L Alkaline Phosphatase (38-126) U/L Troponin I < 0.012 < 0.012 < 0.012 (0.000-0.034) ng/mL Serum Total Protein (6.3-8.2) g/dL Albumin (3.5-5.0) g/dL Amylase (30-110) U/L Urine Color (YELLOW) Urine Appearance (CLEAR) Urine pH (5-6) Ur Specific [place] (1.005-1.025) Urine Protein (Negative) Urine Ketones (NEGATIVE) Urine Blood (0-5) William/ul Urine Nitrite (NEGATIVE) Urine Bilirubin (NEGATIVE) Urine Urobilinogen (0-1) mg/dL Ur Leukocyte Esterase (NEGATIVE) Urine WBC (Auto) (0-5) /HPF Urine RBC (Auto) (0-2) /HPF U Hyaline Cast (Auto) (0-2) /LPF U Epithel Cells (Auto) (FEW) /HPF Urine Bacteria (Auto) (NEGATIVE) /HPF Urine Mucus (Auto) (NEGATIVE) /HPF Urine Culture Reflexed (NO) Urine Glucose (NEGATIVE) mg/dL 11/22/19 11/22/19 11/22/19 Range/Units 04:11 04:11 04:11 WBC 14.2 H (4.0-10.5) K/mm3 RBC 4.48 (4.1-5.4) M/mm3 Hgb 11.0 L (12.0-16.0) gm/dl Hct 35.3 (35-47) % MCV 78.8 (78-100) fl MCH 24.6 L (26-32) pg MCHC 31.2 L (32-36) g/dl RDW 17.4 H (11.5-14.0) % Plt Count 338 (150-450) K/mm3 MPV 10.4 (7.5-11.0) fl Absolute Granulocytes 10.1 H (1.4-6.9) Segmented Neutrophils 67 H (36.0-66.0) % Band Neutrophils 4 H (0.0-2.0) % Lymphocytes (Manual) 18 L (24-44) % Monocytes (Manual) 6 (0.0-12.0) % Eosinophils (Manual) 3 (0.00-3.0) % Basophils (Manual) 1 (0.0-1.0) % Atypical Lymphocytes 1 % Platelet Estimate NORMAL (NORMAL) RBC Morphology NORMAL Sodium 144 (137-145) mmol/L Potassium 3.2 L (3.5-5.1) mmol/L Chloride 106 (98-107) mmol/L Carbon Dioxide 27 (22-30) mmol/L Anion Gap 13.4 (5-15) MEQ/L BUN 31 H (7-17) mg/dL Creatinine 1.19 H (0.52-1.04) mg/dL Estimated GFR 46.7 ML/MIN Glucose 105 (74-106) mg/dL Lactic Acid (0.4-2.0) Calcium 7.8 L (8.4-10.2) mg/dL Total Bilirubin 0.50 (0.2-1.3) mg/dL AST 23 (14-36) U/L ALT 14 (0-35) U/L Alkaline Phosphatase 123 (38-126) U/L Troponin I < 0.012 (0.000-0.034) ng/mL Serum Total Protein 8.2 (6.3-8.2) g/dL Albumin 3.4 L (3.5-5.0) g/dL Amylase (30-110) U/L Urine Color (YELLOW) Urine Appearance (CLEAR) Urine pH (5-6) Ur Specific [place] (1.005-1.025) Urine Protein (Negative) Urine Ketones (NEGATIVE) Urine Blood (0-5) William/ul Urine Nitrite (NEGATIVE) Urine Bilirubin (NEGATIVE) Urine Urobilinogen (0-1) mg/dL Ur Leukocyte Esterase (NEGATIVE) Urine WBC (Auto) (0-5) /HPF Urine RBC (Auto) (0-2) /HPF U Hyaline Cast (Auto) (0-2) /LPF U Epithel Cells (Auto) (FEW) /HPF Urine Bacteria (Auto) (NEGATIVE) /HPF Urine Mucus (Auto) (NEGATIVE) /HPF Urine Culture Reflexed (NO) Urine Glucose (NEGATIVE) mg/dL - Radiology Exams Ordered Rad Exams-Entire Visit: Radiology Procedures Category Date Time Status ABDOMEN AND PELVIS W/0 CONTRAS [CT] Stat Exams 11/21/19 14:04 Completed - Discharge Disposition: Home, Self-Care Condition: Stable Prescriptions: New Smz/Tmp Ds Tablet [Bactrim Ds Tablet] 1 tab PO Q12H #10 tablet Continue Lovastatin 40 mg PO HS Omeprazole 20 mg PO DAILY Lisinopril/Hydrochlorothiazide [Lisinopril-Hctz 20-12.5 mg Tab] 1 each PO DAILY Follow up with: PEDRO MONTENEGRO MD [Primary Care Provider] - 1 Week (recommend telemedicine visit if patient able)
[2019-11-22] MEDS ORDERED: hydroDIURIL 25 MG PO SCH (10:00)
[2019-11-22] MEDS ORDERED: ROCEPHIN 1 Gm-D5w 50 ml Bag** 1 G/50 ML IVPB IV SCH (10:00)
[2019-11-22] MEDS ORDERED: Flomax 0.4 MG PO SCH (10:00)
[2019-11-22] MEDS ORDERED: Zestril 20 MG PO SCH (10:00)
[2019-11-22] MEDS ORDERED: NON-FORMULARY ITEM (Omeprazole [Omeprazole] 20 MG) PO SCH (10:00)
[2019-11-22] MEDS ORDERED: NON-FORMULARY ITEM (Lisinopril/Hydrochlorothiazide [Lisinopril-Hctz 20-12.5 Mg Tab] 1 EACH PO SCH (10:00)
[2019-11-22] MEDS ORDERED: Protonix 40MG Tablet PO SCH (10:00)
[2019-11-22] MEDS: Pepcid 20 MG VIAL IV SCH (10:10)
[2019-11-22 11:16] VITALS: BP 133/76; PULSE 65; O2SAT 95
[2019-11-22] MEDS ORDERED: ZOCOR 20MG PO SCH (22:00)
[2019-11-22] MEDS ORDERED: NON-FORMULARY ITEM (Lovastatin [Lovastatin] 40 MG) PO SCH (22:00)
== END 2019-11-22 12:10 | disposition home or self-care (01) ==
LOC: ED 13:48 → MED SURG 17:41
PROVIDERS: ADMIT Family Medicine; ATTEND Family Medicine
DX: N20.1 Calculus of ureter (principal); N39.0 Urinary tract infection, site not specified; N17.9 Acute kidney failure, unspecified; I10 Essential (primary) hypertension; K21.9 Gastro-esophageal reflux disease without esophagitis; E78.00 Pure hypercholesterolemia, unspecified; Z79.899 Other long term (current) drug therapy
CPT/HCPCS: 36415; 74176; 80053; 81001; 82150; 82360; 83605; 84484; 85025; 87086; 93005; 96360; 96365; 96374; 99284; G0378; J0696; J2405; A9270-GY

== ENCOUNTER 2019-11-23 13:49 | Emergency (ER) | payer MEDICARE, OTHER ==
[2019-11-23] MEDS ORDERED: Zofran 4 MG/2 ML VIAL IV ONE (13:57)
[2019-11-23] MEDS ORDERED: TORAdol 30 mg Injection IV ONE (13:57)
[2019-11-23] MEDS ORDERED: Sodium Chloride 0.9% 1000 ML 1,000 ML IV STA ×2 (13:57→16:01)
[2019-11-23] MEDS ORDERED: Zofran 4 MG/2 ML VIAL ONE (14:17)
[2019-11-23] MEDS ORDERED: TORAdol 30 mg Injection ONE (14:17)
[2019-11-23] MEDS ORDERED: Sodium Chloride 0.9% 1000 ML 1,000 ML ONE ×2 (14:18→15:48)
[2019-11-23 14:19] LABS: Hematocrit 37.6 % (35-47); Hemoglobin 11.9 gm/dl (12.0-16.0); Mean Cell Volume 77.2 fl (78-100); Mean Corpuscular Hemoglobin 24.4 pg (26-32); Mean Corpuscular Hgb Concent. 31.6 g/dl (32-36); Mean Platelet Volume 10.7 fl (7.5-11.0); Platelet Count 494 K/mm3 (150-450); Red Blood Count 4.87 M/mm3 (4.1-5.4); Red Cell Distribution Width 17.8 % (11.5-14.0); White Blood Count 20.7 K/mm3 (4.0-10.5)
[2019-11-23] MEDS ORDERED: POTASSIUM CHLORIDE 20 mEq IN WATER 100ML 200 ML IV ONE (14:23)
[2019-11-23] MEDS: POTASSIUM CHLORIDE 20 mEq IN WATER 100ML 20 MEQ/100 ML BAG IV SCH ×2 (14:25→17:02)
[2019-11-23 14:42] LABS: ALBUMIN 4.1 g/dL (3.5-5.0); ANION GAP 18.9 MEQ/L (5-15); BILIRUBIN,TOTAL 0.7 mg/dL (0.2-1.3); Calcium 8.9 mg/dL (8.4-10.2); Creatinine 1 1.14 mg/dL (0.52-1.04); TROPONIN 0.02 ng/mL (0.000-0.034); Total Protein 9.7 g/dL (6.3-8.2)
[2019-11-23 14:46] LABS: Potassium 2.7 mmol/L (3.5-5.1)
[2019-11-23 15:36] LABS: Appearance CLEAR (CLEAR); Bilirubin NEGATIVE (NEGATIVE); Blood NEGATIVE Ery/ul (0-5); Epithelial Cells RARE /HPF (FEW); Glucose NEGATIVE (NEGATIVE); Ketones SMALL (NEGATIVE); Leukocyte Esterase NEGATIVE (NEGATIVE); Mucus SLIGHT /HPF (NEGATIVE); Nitrite NEGATIVE (NEGATIVE); Protein,Urine Dip NEGATIVE (Negative); RBC 0-2 /HPF (0-2); Specific Gravity 1.021 (1.005-1.025); Urobilinogen NEGATIVE mg/dL (0-1); WBC 0-2 /HPF (0-5)
[2019-11-23 15:40] LABS: ANISOCYTOSIS 1+; BAND 2 % (0.0-2.0); Eosinophil 3 % (0.00-3.0); Lymphocytes 14 % (24-44); Monocyte 3 % (0.0-12.0); Neutrophils 78 % (36.0-66.0); Platelet Estimate INCREASED (NORMAL); Poikilocytosis 1+; Polychromasia RARE; Total Cells Counted 100; Toxic Granulation 2+
--- NOTE | 2019-11-23 16:10 | ERPHSYRPT ---
- History of Present Illness Time Seen by Provider: 11/23/19 13:54 Historian: patient Exam Limitations: no limitations Patient Subjective Stated Complaint: pt was dc from this hospital yesterday, she states she felt better and then today she started having abd pain and back pain, no fever, she states she is also weak and nasueated Triage Nursing Assessment: pt alert, appears weak, but able to get self out of car in [place], pt anxious, resp labored at times,abd soft, moves all ext. Physician History: Patient is a 79-year-old female who presents with left-sided abdominal pain and left-sided back pain. Patient was seen on November 20 and was diagnosed with a 3 mm ureteral stone with mild hydronephrosis. Patient was admitted here since it was close to the bladder and the next day it appeared that she had passed a stone. She had symptom relief as well. She was discharged. She felt okay until late last night when she started to have the pain again which continued into this morning and so she came back to our ER for reevaluation. Patient is also having initial vomiting and now just dry heaves. Patient feels weak as well. No fevers. Timing/Duration: yesterday Activities at Onset: rest Quality: sharpness Abdominal Pain Onset Location: LUQ, LLQ, flank Pain Radiation: no radiation Severity of Pain-Max: severe Severity of Pain-Current: severe Modifying Factors: Improves With: nothing Associated Symptoms: back, nausea, vomiting, weakness Previous symptoms: same symptoms as today Allergies/Adverse Reactions: No Known Drug Allergies Allergy (Verified 11/23/19 14:12) Home Medications: Lovastatin 40 mg PO HS 02/22/15 [History] Omeprazole 20 mg PO DAILY 02/22/15 [History] Lisinopril/Hydrochlorothiazide [Lisinopril-Hctz 20-12.5 mg Tab] 1 each PO DAILY 11/22/19 [History] Hx Tetanus, Diphtheria Vaccination/Date Given: No Hx Influenza Vaccination/Date Given: Yes Hx Pneumococcal Vaccination/Date Given: No Immunizations Up to Date: Yes Travel Risk - International Travel Have you traveled outside of the country in past 3 weeks: No Have you or anyone close to you been diagnosed with or: No Do your reside in a community with a known COVID-19 case?: Yes If Yes where:: [facility] - Coronavirus Screening Has patient experienced Coronavirus symptoms: Yes Symptoms experienced: weakness - Review of Systems Constitutional: Malaise, No Fever, No Chills Eyes: No Symptoms Ears, Nose, & Throat: No Symptoms Respiratory: No Cough, No Dyspnea Cardiac: No Chest Pain, No Edema, No Syncope Abdominal/Gastrointestinal: Abdominal Pain, Nausea, Vomiting, No Diarrhea Genitourinary Symptoms: Flank Pain, No Dysuria Musculoskeletal: No Back Pain, No Neck Pain Skin: No Rash Neurological: No Dizziness, No Focal Weakness, No Sensory Changes Psychological: No Symptoms Endocrine: No Symptoms All Other Systems: Reviewed and Negative - Past Medical History Pertinent Past Medical History: Yes Neurological History: No Pertinent History ENT History: No Pertinent History Cardiac History: High Cholesterol, Hypertension Respiratory History: No Pertinent History Endocrine Medical History: No Pertinent History Musculoskeletal History: No Pertinent History GI Medical History: GERD History: No Pertinent History Psycho-Social History: No Pertinent History Female Reproductive Disorders: No Pertinent History - Past Surgical History Past Surgical History: No Neuro Surgical History: No Pertinent History Cardiac: No Pertinent History Respiratory: No Pertinent History Gastrointestinal: No Pertinent History Genitourinary: No Pertinent History Musculoskeletal: No Pertinent History Female Surgical History: No Pertinent History - Social History Smoking Status: Never smoker Exposure to second hand smoke: No Drug Use: none Patient Lives Alone: Yes - Female History Hx Last Menstrual Period: post Hx Now: Yes - Nursing Vital Signs Nursing Vital Signs: Initial Vital Signs Temperature 97.5 F 11/23/19 13:58 Pulse Rate 73 11/23/19 13:58 Respiratory Rate 22 11/23/19 13:58 Blood Pressure 132/63 11/23/19 13:58 O2 Sat by Pulse Oximetry 98 11/23/19 13:58 Pain Scale Pain Intensity 4 - Physical Exam General Appearance: moderate distress, alert Eye Exam: PERRL/EOMI, eyes nml inspection Ears, Nose, Throat Exam: normal ENT inspection, pharynx normal, moist mucous membranes Neck Exam: normal inspection, non-tender, supple, full range of motion Respiratory Exam: normal breath sounds, lungs clear, No respiratory distress Cardiovascular Exam: regular rate/rhythm, normal heart sounds Gastrointestinal/Abdomen Exam: soft, normal bowel sounds, tenderness, No mass Pelvic Exam: not done Rectal Exam: deferred Back Exam: normal inspection, normal range of motion, No CVA tenderness, No vertebral tenderness Extremity Exam: normal inspection, normal range of motion, pelvis stable Neurologic Exam: alert, oriented x 3, cooperative, normal mood/affect, nml cerebellar function, sensation nml, No motor deficits Skin Exam: normal color, warm, dry SpO2: 98 - Course Nursing assessment & vital signs reviewed: Yes EKG Interpreted by Me: Sinus Rhythm, Non-specific ST Changes, Other ( ventricular trigeminy) - CT Exams Abdomen/Pelvis CT Interpretation: Tele-radiologist Report, Other (3mm UVJ with increased hydronephrosis) Ordered Tests: Active Orders 24 hr Category Date Time Status EKG-ER Only STAT Care 11/23/19 13:57 Active IV Insertion STAT Care 11/23/19 13:57 Active Isolation, Initiate & Maintain Q4H Care 11/23/19 14:10 Active ABDOMEN AND PELVIS W/0 CONTRAS [CT] Stat Exams 11/23/19 14:21 Taken CBC W DIFF Stat Lab 11/23/19 14:10 Completed CMP Stat Lab 11/23/19 14:10 Completed LIPASE Stat Lab 11/23/19 14:10 Completed Lactic Acid Stat Lab 11/23/19 13:57 Completed Manual Differential NC Stat Lab 11/23/19 14:10 Completed TROPONIN Stat Lab 11/23/19 14:10 Completed UA W/RFX UR CULTURE Stat Lab 11/23/19 15:21 Completed Medication Summary Generic Name Dose Route Start Last Admin Trade Name Freq PRN Reason Stop Dose Admin Potassium Chloride 20 meq in 100 mls @ 50 mls/hr 11/23/19 14:30 11/23/19 14: 25 Potassium Chloride 20 Meq In Water 100ml IV 11/23/19 18:29 50 mls/hr Q2H SANDRA Administration Sodium Chloride 1,000 mls @ 999 mls/hr 11/23/19 16:01 11/23/19 16:03 Sodium Chloride 0.9% 1000 Ml IV 11/23/19 17:01 999 mls/hr .Q1H1M STA Administration Discontinued Medications Generic Name Dose Route Start Last Admin Trade Name Freq PRN Reason Stop Dose Admin Sodium Chloride 1,000 mls @ 999 mls/hr 11/23/19 13:57 11/23/19 15:31 Sodium Chloride 0.9% 1000 Ml IV 11/23/19 14:57 Infused .Q1H1M STA Infusion Sodium Chloride Confirm 11/23/19 14:18 Sodium Chloride 0.9% 1000 Ml Administered 11/23/19 14:19 Dose 1,000 mls @ ud .ROUTE .STK-MED ONE Sodium Chloride Confirm 11/23/19 15:48 Sodium Chloride 0.9% 1000 Ml Administered 11/23/19 15:49 Dose 1,000 mls @ ud .ROUTE .STK-MED ONE Ketorolac Tromethamine 15 mg 11/23/19 13:57 11/23/19 14:21 Toradol 30 Mg Injection IV 11/23/19 13:58 15 mg STAT ONE Administration Ketorolac Tromethamine Confirm 11/23/19 14:17 Toradol 30 Mg Injection Administered 11/23/19 14:18 Dose 30 mg .ROUTE .STK-MED ONE Ondansetron HCl 4 mg 11/23/19 13:57 11/23/19 14:21 Zofran 4 Mg/2 Ml Vial IV 11/23/19 13:58 4 mg STAT ONE Administration Ondansetron HCl Confirm 11/23/19 14:17 Zofran 4 Mg/2 Ml Vial Administered 11/23/19 14:18 Dose 4 mg .ROUTE .STK-MED ONE Lab/Rad Data: Laboratory Result Diagrams 11/23/19 14:10 11/23/19 14:10 Laboratory Results 11/23/19 11/23/19 11/23/19 Range/Units 15:21 14:10 14:10 WBC 20.7 H (4.0-10.5) K/mm3 RBC 4.87 (4.1-5.4) M/mm3 Hgb 11.9 L (12.0-16.0) gm/dl Hct 37.6 (35-47) % MCV 77.2 L (78-100) fl MCH 24.4 L (26-32) pg MCHC 31.6 L (32-36) g/dl RDW 17.8 H (11.5-14.0) % Plt Count 494 H D (150-450) K/mm3 MPV 10.7 (7.5-11.0) fl Segmented Neutrophils 78 H (36.0-66.0) % Band Neutrophils 2 (0.0-2.0) % Lymphocytes (Manual) 14 L (24-44) % Monocytes (Manual) 3 (0.0-12.0) % Eosinophils (Manual) 3 (0.00-3.0) % Toxic Granulation 2+ Platelet Estimate INCREASED (NORMAL) RBC Morphology ABNORMAL Polychromasia RARE Poikilocytosis 1+ Anisocytosis 1+ Sodium 141 (137-145) mmol/L Potassium 2.7 L* (3.5-5.1) mmol/L Chloride 103 (98-107) mmol/L Carbon Dioxide 22 (22-30) mmol/L Anion Gap 18.9 H (5-15) MEQ/L BUN 25 H (7-17) mg/dL Creatinine 1.14 H (0.52-1.04) mg/dL Estimated GFR 49.1 ML/MIN Glucose 125 H (74-106) mg/dL Lactic Acid (0.4-2.0) Calcium 8.9 (8.4-10.2) mg/dL Total Bilirubin 0.70 (0.2-1.3) mg/dL AST 32 (14-36) U/L ALT 19 (0-35) U/L Alkaline Phosphatase 153 H (38-126) U/L Troponin I 0.020 (0.000-0.034) ng/mL Serum Total Protein 9.7 H (6.3-8.2) g/dL Albumin 4.1 (3.5-5.0) g/dL Lipase 370 H (23-300) U/L Urine Color YELLOW (YELLOW) Urine Appearance CLEAR (CLEAR) Urine pH 5.0 (5-6) Ur Specific [place] 1.021 (1.005-1.025) Urine Protein NEGATIVE (Negative) Urine Ketones SMALL (NEGATIVE) Urine Blood NEGATIVE (0-5) William/ul Urine Nitrite NEGATIVE (NEGATIVE) Urine Bilirubin NEGATIVE (NEGATIVE) Urine Urobilinogen NEGATIVE (0-1) mg/dL Ur Leukocyte Esterase NEGATIVE (NEGATIVE) Urine WBC (Auto) 0-2 (0-5) /HPF Urine RBC (Auto) 0-2 (0-2) /HPF U Epithel Cells (Auto) RARE (FEW) /HPF Urine Bacteria (Auto) NONE (NEGATIVE) /HPF Urine Mucus (Auto) SLIGHT (NEGATIVE) /HPF Urine Culture Reflexed NO (NO) Urine Glucose NEGATIVE (NEGATIVE) mg/dL 11/23/19 Range/Units 13:57 WBC (4.0-10.5) K/mm3 RBC (4.1-5.4) M/mm3 Hgb (12.0-16.0) gm/dl Hct (35-47) % MCV (78-100) fl MCH (26-32) pg MCHC (32-36) g/dl RDW (11.5-14.0) % Plt Count (150-450) K/mm3 MPV (7.5-11.0) fl Segmented Neutrophils (36.0-66.0) % Band Neutrophils (0.0-2.0) % Lymphocytes (Manual) (24-44) % Monocytes (Manual) (0.0-12.0) % Eosinophils (Manual) (0.00-3.0) % Toxic Granulation Platelet Estimate (NORMAL) RBC Morphology Polychromasia Poikilocytosis Anisocytosis Sodium (137-145) mmol/L Potassium (3.5-5.1) mmol/L Chloride (98-107) mmol/L Carbon Dioxide (22-30) mmol/L Anion Gap (5-15) MEQ/L BUN (7-17) mg/dL Creatinine (0.52-1.04) mg/dL Estimated GFR ML/MIN Glucose (74-106) mg/dL Lactic Acid 3.6 H (0.4-2.0) Calcium (8.4-10.2) mg/dL Total Bilirubin (0.2-1.3) mg/dL AST (14-36) U/L ALT (0-35) U/L Alkaline Phosphatase (38-126) U/L Troponin I (0.000-0.034) ng/mL Serum Total Protein (6.3-8.2) g/dL Albumin (3.5-5.0) g/dL Lipase (23-300) U/L Urine Color (YELLOW) Urine Appearance (CLEAR) Urine pH (5-6) Ur Specific [place] (1.005-1.025) Urine Protein (Negative) Urine Ketones (NEGATIVE) Urine Blood (0-5) William/ul Urine Nitrite (NEGATIVE) Urine Bilirubin (NEGATIVE) Urine Urobilinogen (0-1) mg/dL Ur Leukocyte Esterase (NEGATIVE) Urine WBC (Auto) (0-5) /HPF Urine RBC (Auto) (0-2) /HPF U Epithel Cells (Auto) (FEW) /HPF Urine Bacteria (Auto) (NEGATIVE) /HPF Urine Mucus (Auto) (NEGATIVE) /HPF Urine Culture Reflexed (NO) Urine Glucose (NEGATIVE) mg/dL - Progress Progress: improved Progress Note: 11/23/19 16:23 We will reevaluate for patient's kidney stone given that her symptoms are consistent with previous presumed passed stone. Lightly more elevated at 20,000. Lactic acid bumped up again. Potassium is 2.7. Renal functions mildly elevated. CT scan did reveal an increased hydronephrosis and hydroureter on the left with a stable 3 mm UVJ stone which apparently has not passed. Discussed with patient who wished to stay here but Dr. Montenegro decided would be best to get patient to a facility with urology. Dr. Churchill accepted patient for transfer to [facility]. Discussed with : Francheska Will see patient in: other (transfer to facility with urology) Counseled pt/family regarding: lab results, diagnosis, rad results - Departure Departure Disposition: Transfer Clinical Impression: Obstructive uropathy, Ureteral stone with hydronephrosis Condition: Stable Critical Care Time: No Referrals: PEDRO MONTENEGRO MD [Primary Care Provider] -
[2019-11-23 17:09] VITALS: BP 118/65; PULSE 82; O2SAT 95
--- NOTE | 2019-11-23 20:56 | XRAY ---
Indication: Abdomen and back pain. Multiple contiguous axial images obtained through the abdomen and pelvis without contrast as ordered. Comparison: November 21, 2019. Lung bases again demonstrates bibasilar atelectasis/scarring. Heart is not enlarged. Noncontrasted stomach and bowel loops remain nonobstructed. Normal appendix. Stable 3 mm left UVJ calculus again with minimal left ureter prominence and moderate hydronephrosis. No pyelosinus reflux or perinephric fluid. Stable few chronic pancreatitis calcifications and fatty liver. Remaining liver, gallbladder, pancreas, spleen, adrenal glands, right kidney, right ureter, urinary bladder, and uterus appear unremarkable for noncontrast exam. Stable mild aortoiliac calcifications without AAA. Impression: 1. Stable 3 mm left UVJ calculus again producing obstructive uropathy as detailed. 2. Stable chronic pancreatitis calcifications and fatty liver. 4. Remaining CT abdomen/pelvis without contrast exam is again negative. Comment: Preliminary interpretation was made by [facility]. No critical discrepancy.
== END 2019-11-23 18:00 | disposition short-term general hospital (02) ==
LOC: ED 13:49
DX: N13.30 Unspecified hydronephrosis (principal); I10 Essential (primary) hypertension; E78.00 Pure hypercholesterolemia, unspecified; K21.9 Gastro-esophageal reflux disease without esophagitis; Z79.899 Other long term (current) drug therapy
CPT/HCPCS: 36000; 36415; 74176; 80053; 81001; 83605; 83690; 84484; 85025; 93005; 96360; 96361; 96365; 96366; 96374; 96375; 99285; J1885; J2405; J3480

== ENCOUNTER 2020-11-05 06:59 | Observation (INO) | payer MEDICARE, OTHER ==
--- NOTE | 2020-11-05 07:25 | ERPHSYRPT ---
- History of Present Illness Time Seen by Provider: 11/05/20 07:05 Source: patient Exam Limitations: no limitations Patient Subjective Stated Complaint: possible syncopal episode while in rad for stress test Triage Nursing Assessment: pt to ED after syncopal episode while getting ready for stress test. pt reports she has been having these episodes at home. denies pain at this time. reports some tingling on bottom of R foot. reports 4 CVAs in last year and a half. Physician History: This is a 80-year-old white female has a history of hypertension, gastroesophageal reflux disease as well as recurrent syncope and presents from the nuclear medicine department with another syncopal episode. It was sudden in onset during a nuclear medicine stress test. Dr. Montenegro is aware of this patient's condition and this was part of the work-up of her recurrent syncope. Patient states that she has a history of TIAs in the past x4. Patient symptoms resolved completely at the time of my examination. Her NIH score is 2. Patient denies headache. Patient denies chest pain and shortness of breath. She has no abdominal pain. She has no urinary tract infection symptoms. Timing/Duration: today Severity: moderate (At onset. Completely resolved at the time of my examinati on) Character of Deficits: none Deficits: no difficulties Baseline/Normal Cognition: alert oriented x 3 Current Cognition: alert oriented x 3 Baseline Gait: walks w/o assistance Associated Symptoms: denies symptoms Allergies/Adverse Reactions: No Known Drug Allergies Allergy (Verified 11/05/20 07:16) Home Medications: Lovastatin 40 mg PO HS 02/22/15 [History] Omeprazole 20 mg PO DAILY 02/22/15 [History] Lisinopril/Hydrochlorothiazide [Lisinopril-Hctz 20-12.5 mg Tab] 1 each PO DAILY 11/22/19 [History] Hx Tetanus, Diphtheria Vaccination/Date Given: No Hx Influenza Vaccination/Date Given: Yes Hx Pneumococcal Vaccination/Date Given: Yes Immunizations Up to Date: Yes Travel Risk - International Travel Have you traveled outside of the country in past 3 weeks: No - Coronavirus Screening Are you exhibiting any of the following symptoms?: No Close contact with a COVID-19 positive Pt in past 14-21 Days: No - Review of Systems Constitutional: No Symptoms Eyes: No Symptoms Ears, Nose, & Throat: No Symptoms Respiratory: No Symptoms Cardiac: No Symptoms Abdominal/Gastrointestinal: No Symptoms Genitourinary Symptoms: No Symptoms Musculoskeletal: No Symptoms Skin: No Symptoms Neurological: No Symptoms Psychological: No Symptoms Endocrine: No Symptoms Hematologic/Lymphatic: No Symptoms Immunological/Allergic: No Symptoms All Other Systems: Reviewed and Negative - Past Medical History Pertinent Past Medical History: Yes Neurological History: Stroke, TIA ENT History: No Pertinent History Cardiac History: High Cholesterol, Hypertension Respiratory History: No Pertinent History Endocrine Medical History: No Pertinent History Musculoskeletal History: No Pertinent History GI Medical History: GERD History: No Pertinent History Psycho-Social History: No Pertinent History Female Reproductive Disorders: No Pertinent History Other Medical History: episodes passing out - Past Surgical History Past Surgical History: No Neuro Surgical History: No Pertinent History Cardiac: No Pertinent History Respiratory: No Pertinent History Gastrointestinal: No Pertinent History Genitourinary: No Pertinent History Musculoskeletal: No Pertinent History Female Surgical History: No Pertinent History - Social History Smoking Status: Never smoker Exposure to second hand smoke: No Drug Use: none Patient Lives Alone: Yes - Female History Hx Now: No - Nursing Vital Signs Nursing Vital Signs: Initial Vital Signs Temperature 97.3 F 11/05/20 07:02 Pulse Rate 58 L 11/05/20 07:02 Respiratory Rate 23 11/05/20 07:02 Blood Pressure 126/79 11/05/20 07:02 O2 Sat by Pulse Oximetry 96 11/05/20 07:02 Pain Scale Pain Intensity 0 - [place] Coma Scale Best Eye Response ([place]): (4) open spontaneously Best Verbal Response ([place]): (5) oriented Best Motor Response ([place]): (6) obeys commands Jocelyn Total: 15 - Physical Exam General Appearance: no apparent distress, alert, anxiety Eye Exam: bilateral eye: normal inspection, PERRL, EOMI Ears, Nose, Throat Exam: normal ENT inspection, moist mucous membranes Neck Exam: normal inspection, non-tender, supple, full range of motion Respiratory: normal breath sounds, lungs clear, airway intact, No chest tenderness, No respiratory distress Cardiovascular: regular rate/rhythm, normal heart sounds, normal peripheral pulses Gastrointestinal: soft, normal bowel sounds, No tenderness Pelvic Exam: not done Rectal Exam: not done Extremity Exam: normal inspection, normal range of motion, pelvis stable Mental Status: alert, oriented x 3, 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 There are no acute ischemic changes on today's EKG.) Ordered Tests: Active Orders 24 hr Category Date Time Status EKG-ER Only STAT Care 11/05/20 07:33 Active NPO (ED) STAT Care 11/05/20 07:34 Active HEAD WITHOUT CONTRAST [CT] Stat Exams 11/05/20 07:10 Completed CBC W DIFF Stat Lab 11/05/20 07:30 Completed CMP Stat Lab 11/05/20 07:30 Completed MAGNESIUM Stat Lab 11/05/20 07:30 Completed PROTIME WITH INR Stat Lab 11/05/20 07:30 Completed TROPONIN Q3H Lab 11/05/20 07:30 Completed TROPONIN Q3H Lab 11/05/20 11:00 Ordered TROPONIN Q3H Lab 11/05/20 14:00 Ordered TROPONIN Q3H Lab 11/05/20 17:00 Ordered TROPONIN Q3H Lab 11/05/20 20:00 Ordered UA W/RFX UR CULTURE Stat Lab 11/05/20 08:26 Completed Transfer Order Routine Transfer 11/05/20 Ordered Lab/Rad Data: Laboratory Result Diagrams 11/05/20 07:30 11/05/20 07:30 Laboratory Results 11/05/20 11/05/20 11/05/20 Range/Units 08:26 07:30 07:30 WBC (4.0-10.5) K/mm3 RBC (4.1-5.4) M/mm3 Hgb (12.0-16.0) gm/dl Hct (35-47) % MCV (78-100) fl MCH (26-32) pg MCHC (32-36) g/dl RDW (11.5-14.0) % Plt Count (150-450) K/mm3 MPV (7.5-11.0) fl Gran % (36.0-66.0) % Eos # (Auto) (0-0.5) Absolute Lymphs (auto) (1.0-4.6) Absolute Monos (auto) (0.0-1.3) Lymphocytes % (24.0-44.0) % Monocytes % (0.0-12.0) % Eosinophils % (0.00-5.0) % Basophils % (0.0-0.4) % Absolute Granulocytes (1.4-6.9) Basophils # (0-0.4) PT (9.95-12.35) SECONDS INR (0.8-3.0) Sodium (137-145) mmol/L Potassium (3.5-5.1) mmol/L Chloride (98-107) mmol/L Carbon Dioxide (22-30) mmol/L Anion Gap (5-15) MEQ/L BUN (7-17) mg/dL Creatinine (0.52-1.04) mg/dL Estimated GFR ML/MIN Glucose (74-106) mg/dL Calcium (8.4-10.2) mg/dL Magnesium 2.2 (1.6-2.3) mg/dL Total Bilirubin (0.2-1.3) mg/dL AST (14-36) U/L ALT (0-35) U/L Alkaline Phosphatase (38-126) U/L Troponin I < 0.012 (0.000-0.034) ng/mL Serum Total Protein (6.3-8.2) g/dL Albumin (3.5-5.0) g/dL Urine Color YELLOW (YELLOW) Urine Appearance SLIGHTLY CLOUDY (CLEAR) Urine pH 5.0 (5-6) Ur Specific [place] 1.020 (1.005-1.025) Urine Protein NEGATIVE (Negative) Urine Ketones NEGATIVE (NEGATIVE) Urine Blood NEGATIVE (0-5) William/ul Urine Nitrite NEGATIVE (NEGATIVE) Urine Bilirubin NEGATIVE (NEGATIVE) Urine Urobilinogen NEGATIVE (0-1) mg/dL Ur Leukocyte Esterase TRACE (NEGATIVE) Urine WBC (Auto) 0-2 (0-5) /HPF Urine RBC (Auto) 0-2 (0-2) /HPF U Hyaline Cast (Auto) 11-25 (0-2) /LPF U Epithel Cells (Auto) NONE (FEW) /HPF Urine Bacteria (Auto) RARE (NEGATIVE) /HPF Urine Mucus (Auto) SLIGHT (NEGATIVE) /HPF Urine Culture Reflexed NO (NO) Urine Glucose NEGATIVE (NEGATIVE) mg/dL 11/05/20 11/05/20 11/05/20 Range/Units 07:30 07:30 07:30 WBC 8.9 (4.0-10.5) K/mm3 RBC 4.78 (4.1-5.4) M/mm3 Hgb 10.5 L (12.0-16.0) gm/dl Hct 35.0 (35-47) % MCV 73.2 L (78-100) fl MCH 22.0 L (26-32) pg MCHC 30.0 L (32-36) g/dl RDW 18.9 H (11.5-14.0) % Plt Count 372 (150-450) K/mm3 MPV 10.8 (7.5-11.0) fl Gran % 50.6 (36.0-66.0) % Eos # (Auto) 0.20 (0-0.5) Absolute Lymphs (auto) 3.18 (1.0-4.6) Absolute Monos (auto) 0.95 (0.0-1.3) Lymphocytes % 35.9 (24.0-44.0) % Monocytes % 10.7 (0.0-12.0) % Eosinophils % 2.3 (0.00-5.0) % Basophils % 0.5 (0.0-0.4) % Absolute Granulocytes 4.49 (1.4-6.9) Basophils # 0.04 (0-0.4) PT 12.7 H (9.95-12.35) SECONDS INR 1.12 (0.8-3.0) Sodium 140 (137-145) mmol/L Potassium 3.4 L (3.5-5.1) mmol/L Chloride 104 (98-107) mmol/L Carbon Dioxide 23 (22-30) mmol/L Anion Gap 17.4 H (5-15) MEQ/L BUN 33 H (7-17) mg/dL Creatinine 1.23 H (0.52-1.04) mg/dL Estimated GFR 44.9 ML/MIN Glucose 119 H (74-106) mg/dL Calcium 9.3 (8.4-10.2) mg/dL Magnesium (1.6-2.3) mg/dL Total Bilirubin 0.20 (0.2-1.3) mg/dL AST 40 H (14-36) U/L ALT 20 (0-35) U/L Alkaline Phosphatase 82 (38-126) U/L Troponin I (0.000-0.034) ng/mL Serum Total Protein 7.4 (6.3-8.2) g/dL Albumin 4.1 (3.5-5.0) g/dL Urine Color (YELLOW) Urine Appearance (CLEAR) Urine pH (5-6) Ur Specific [place] (1.005-1.025) Urine Protein (Negative) Urine Ketones (NEGATIVE) Urine Blood (0-5) William/ul Urine Nitrite (NEGATIVE) Urine Bilirubin (NEGATIVE) Urine Urobilinogen (0-1) mg/dL Ur Leukocyte Esterase (NEGATIVE) Urine WBC (Auto) (0-5) /HPF Urine RBC (Auto) (0-2) /HPF U Hyaline Cast (Auto) (0-2) /LPF U Epithel Cells (Auto) (FEW) /HPF Urine Bacteria (Auto) (NEGATIVE) /HPF Urine Mucus (Auto) (NEGATIVE) /HPF Urine Culture Reflexed (NO) Urine Glucose (NEGATIVE) mg/dL - Progress Progress: improved, re-examined Progress Note: 11/05/20 08:05 CAT scan of the head without contrast shows no acute intracranial process. 11/05/20 10:02 Medical decision making: Although the patient's symptoms have resolved and she is improved, the patient seems very anxious about being discharged to home. I spoke with Dr. Montenegro, her primary care physician. We have decided to place the patient in observation on a telemetry bed. We will obtain a telecardiology consultation as well as ordering an EEG for her. We will perform a chest pain rule out as well. Counseled pt/family regarding: lab results, diagnosis, rad results - Departure Departure Disposition: Observation Clinical Impression: Chest pain, Syncope Condition: Stable Critical Care Time: Yes Critical Care Time(excluding separately billable procedures): Critical 30-74 mins Referrals: PEDRO MONTENEGRO MD [Primary Care Provider] -
[2020-11-05 08:18] LABS: Absolute Neutrophil Ct (ANC) 4.49 (1.4-6.9); BASOPHIL % 0.5 % (0.0-0.4); Basophil (Absolute #) 0.04 (0-0.4); Eosinophil % 2.3 % (0.00-5.0); Hemoglobin 10.5 gm/dl (12.0-16.0); Lymphocyte (Absolute #) 3.18 (1.0-4.6); Lymphocytes % 35.9 % (24.0-44.0); Mean Cell Volume 73.2 fl (78-100); Mean Platelet Volume 10.8 fl (7.5-11.0); Monocyte (Absolute #) 0.95 (0.0-1.3); Monocytes % 10.7 % (0.0-12.0); Neutrophil % 50.6 % (36.0-66.0); Platelet Count 372 K/mm3 (150-450); Red Blood Count 4.78 M/mm3 (4.1-5.4); Red Cell Distribution Width 18.9 % (11.5-14.0); White Blood Count 8.9 K/mm3 (4.0-10.5)
[2020-11-05 08:22] LABS: INR 1.12 (0.8-3.0); PROTIME 12.7 SECONDS (9.95-12.35)
[2020-11-05 08:36] LABS: ALBUMIN 4.1 g/dL (3.5-5.0); ANION GAP 17.4 MEQ/L (5-15); BILIRUBIN,TOTAL 0.2 mg/dL (0.2-1.3); Calcium 9.3 mg/dL (8.4-10.2); Creatinine 1 1.23 mg/dL (0.52-1.04); EST GLOMERULAR FILTRATION RATE 44.9 ML/MIN; Potassium 3.4 mmol/L (3.5-5.1); Total Protein 7.4 g/dL (6.3-8.2)
--- NOTE | 2020-11-05 08:49 | XRAY ---
Indication: Stroke. Multiple contiguous axial images obtained through the head without contrast. Comparison: November 12, 2018. Again age-appropriate global atrophy and moderate periventricular degenerative micro-ischemia bilaterally. No acute intracranial hemorrhage, abnormal extra-axial fluid collection, or mass effect. Fourth ventricle is midline without hydrocephalus. Bony calvarium intact. Visualized paranasal sinuses and mastoid air cells are clear. Impression: Continued nonacute senile brain. Follow CT or MRI may yield further information if there remains clinical concern.
[2020-11-05 09:20] LABS: Appearance SLIGHTLY CLOUDY (CLEAR); Bilirubin NEGATIVE (NEGATIVE); Blood NEGATIVE Ery/ul (0-5); Glucose NEGATIVE (NEGATIVE); Ketones NEGATIVE (NEGATIVE); Leukocyte Esterase TRACE (NEGATIVE); Mucus SLIGHT /HPF (NEGATIVE); Nitrite NEGATIVE (NEGATIVE); Protein,Urine Dip NEGATIVE (Negative); RBC 0-2 /HPF (0-2); Urobilinogen NEGATIVE mg/dL (0-1); WBC 0-2 /HPF (0-5)
[2020-11-05 09:21] LABS: Bacteria RARE /HPF (NEGATIVE)
[2020-11-05 11:11] LABS: Slide Review 1 YES
[2020-11-05 11:17] LABS: INFLUENZA A NEGATIVE (NEGATIVE); INFLUENZA B NEGATIVE (NEGATIVE); RESPIRATORY SYNCTIAL VIRUS NEGATIVE (Negative)
[2020-11-05] MEDS ORDERED: Sodium Chloride 0.9% 1000 ML 1,000 ML IV SCH (12:29)
[2020-11-05] MEDS ORDERED: Zofran 4 MG/2 ML VIAL IV PRN (12:29)
[2020-11-05] MEDS ORDERED: TYLENOL 325 MG PO PRN (12:29)
--- NOTE | 2020-11-05 12:52 | PCM.HP ---
History of Present Illness - Chief Complaint Chief Complaint: Syncope History of Present Illness: is a 80 year old female who was scheduled for a lexiscan this morning, after starting her IV she experienced a syncopal episode, reportedly was noncommunicative then returned to normal. She felt dizzy and faint, no chest pain. She has had some exertional dyspnea, recently had carotid doppler that showed significant stenosis on the left. She has no chest pain, was to have stress test and has a cardiology consult scheduled regarding her carotid disease but has yet to be seen. She feels well now on the floor, has some mild bradycardia upper 50's low 60's on telemetry. - Review of Systems Constitutional: No Fever, No Chills Respiratory: No Cough, No Short Of Breath Cardiac: Syncope Abdominal/Gastrointestinal: No Abdominal Pain, No Nausea, No Vomiting, No Diarrhea Genitourinary Symptoms: No Dysuria Neurological: Dizziness, No Focal Weakness All Other Systems: Reviewed and Negative Medications & Allergies Home Medications: Home Medication List Lovastatin 40 mg PO HS 02/22/15 [History Confirmed 11/05/20] Omeprazole 20 mg PO DAILY 02/22/15 [History Confirmed 11/05/20] Lisinopril/Hydrochlorothiazide [Lisinopril-Hctz 20-12.5 mg Tab] 1 each PO DAILY 11/22/19 [History Confirmed 11/05/20] Allergies/Adverse Reactions: Allergies Allergy/AdvReac Type Severity Reaction Status Date / Time No Known Drug Allergies Allergy Verified 11/05/20 07:16 - Past Medical History Past Medical History: Yes Neurological History: Stroke, TIA ENT History: No Pertinent History Cardiac History: High Cholesterol, Hypertension Respiratory History: No Pertinent History Endocrine Medical History: No Pertinent History Musculoskelatal History: No Pertinent History GI Medical History: GERD History: No Pertinent History Pyscho-Social History: No Pertinent History Reproductive Disorders: No Pertinent History Comment: episodes passing out - Female History Are you now?: No - Past Surgical History Past Surgical History: No Neuro Surgical History: No Pertinent History Cardiac History: No Pertinent History Respiratory Surgery: No Pertinent History GI Surgical History: No Pertinent History Genitourinary Surgical Hx: No Pertinent History Musculskeletal Surgical Hx: No Pertinent History Female Surgical History: No Pertinent History - Social History Smoking Status: Never smoker Exposure to second hand smoke: No Alcohol: None Drug Use: none - Physical Exam Vital Signs: Vital Signs - 24 hr Temp Pulse Resp BP Pulse Ox 11/05/20 12:27 64 18 122/68 97 11/05/20 10:11 96 11/05/20 09:57 58 L 19 115/61 97 11/05/20 08:18 57 L 17 119/72 95 11/05/20 07:02 97.3 F 58 L 23 126/79 96 Neurologic Exam: alert, oriented x 3, cooperative, normal mood/affect, nml cerebellar function, nml station & gait, sensation nml, No motor deficits Respiratory Exam: normal breath sounds, lungs clear, No respiratory distress Cardiovascular Exam: regular rate/rhythm, normal heart sounds, normal peripheral pulses Gastrointestinal/Abdomen Exam: soft, normal bowel sounds, No tenderness, No mass Extremity Exam: normal inspection, normal range of motion, pelvis stable Skin Exam: normal color, warm, dry, No rash Results - Labs Lab/Micro Results: Lab Results-Last 24 Hours 11/05/20 11/05/20 11/05/20 Range/Units 07:30 07:30 07:30 WBC 8.9 (4.0-10.5) K/mm3 RBC 4.78 (4.1-5.4) M/mm3 Hgb 10.5 L (12.0-16.0) gm/dl Hct 35.0 (35-47) % MCV 73.2 L (78-100) fl MCH 22.0 L (26-32) pg MCHC 30.0 L (32-36) g/dl RDW 18.9 H (11.5-14.0) % Plt Count 372 (150-450) K/mm3 MPV 10.8 (7.5-11.0) fl Gran % 50.6 (36.0-66.0) % Eos # (Auto) 0.20 (0-0.5) Absolute Lymphs (auto) 3.18 (1.0-4.6) Absolute Monos (auto) 0.95 (0.0-1.3) Lymphocytes % 35.9 (24.0-44.0) % Monocytes % 10.7 (0.0-12.0) % Eosinophils % 2.3 (0.00-5.0) % Basophils % 0.5 (0.0-0.4) % Absolute Granulocytes 4.49 (1.4-6.9) Basophils # 0.04 (0-0.4) PT 12.7 H (9.95-12.35) SECONDS INR 1.12 (0.8-3.0) Sodium 140 (137-145) mmol/L Potassium 3.4 L (3.5-5.1) mmol/L Chloride 104 (98-107) mmol/L Carbon Dioxide 23 (22-30) mmol/L Anion Gap 17.4 H (5-15) MEQ/L BUN 33 H (7-17) mg/dL Creatinine 1.23 H (0.52-1.04) mg/dL Estimated GFR 44.9 ML/MIN Glucose 119 H (74-106) mg/dL Calcium 9.3 (8.4-10.2) mg/dL Magnesium (1.6-2.3) mg/dL Total Bilirubin 0.20 (0.2-1.3) mg/dL AST 40 H (14-36) U/L ALT 20 (0-35) U/L Alkaline Phosphatase 82 (38-126) U/L Troponin I (0.000-0.034) ng/mL Serum Total Protein 7.4 (6.3-8.2) g/dL Albumin 4.1 (3.5-5.0) g/dL Urine Color (YELLOW) Urine Appearance (CLEAR) Urine pH (5-6) Ur Specific [place] (1.005-1.025) Urine Protein (Negative) Urine Ketones (NEGATIVE) Urine Blood (0-5) William/ul Urine Nitrite (NEGATIVE) Urine Bilirubin (NEGATIVE) Urine Urobilinogen (0-1) mg/dL Ur Leukocyte Esterase (NEGATIVE) Urine WBC (Auto) (0-5) /HPF Urine RBC (Auto) (0-2) /HPF U Hyaline Cast (Auto) (0-2) /LPF U Epithel Cells (Auto) (FEW) /HPF Urine Bacteria (Auto) (NEGATIVE) /HPF Urine Mucus (Auto) (NEGATIVE) /HPF Urine Culture Reflexed (NO) Urine Glucose (NEGATIVE) mg/dL Influenza Type A Ag (NEGATIVE) Influenza Type B Ag (NEGATIVE) RSV (PCR) (Negative) SARS-CoV-2 (PCR) (NEGATIVE) Slides for Path Review YES 11/05/20 11/05/20 11/05/20 Range/Units 07:30 07:30 08:26 WBC (4.0-10.5) K/mm3 RBC (4.1-5.4) M/mm3 Hgb (12.0-16.0) gm/dl Hct (35-47) % MCV (78-100) fl MCH (26-32) pg MCHC (32-36) g/dl RDW (11.5-14.0) % Plt Count (150-450) K/mm3 MPV (7.5-11.0) fl Gran % (36.0-66.0) % Eos # (Auto) (0-0.5) Absolute Lymphs (auto) (1.0-4.6) Absolute Monos (auto) (0.0-1.3) Lymphocytes % (24.0-44.0) % Monocytes % (0.0-12.0) % Eosinophils % (0.00-5.0) % Basophils % (0.0-0.4) % Absolute Granulocytes (1.4-6.9) Basophils # (0-0.4) PT (9.95-12.35) SECONDS INR (0.8-3.0) Sodium (137-145) mmol/L Potassium (3.5-5.1) mmol/L Chloride (98-107) mmol/L Carbon Dioxide (22-30) mmol/L Anion Gap (5-15) MEQ/L BUN (7-17) mg/dL Creatinine (0.52-1.04) mg/dL Estimated GFR ML/MIN Glucose (74-106) mg/dL Calcium (8.4-10.2) mg/dL Magnesium 2.2 (1.6-2.3) mg/dL Total Bilirubin (0.2-1.3) mg/dL AST (14-36) U/L ALT (0-35) U/L Alkaline Phosphatase (38-126) U/L Troponin I < 0.012 (0.000-0.034) ng/mL Serum Total Protein (6.3-8.2) g/dL Albumin (3.5-5.0) g/dL Urine Color YELLOW (YELLOW) Urine Appearance SLIGHTLY CLOUDY (CLEAR) Urine pH 5.0 (5-6) Ur Specific [place] 1.020 (1.005-1.025) Urine Protein NEGATIVE (Negative) Urine Ketones NEGATIVE (NEGATIVE) Urine Blood NEGATIVE (0-5) William/ul Urine Nitrite NEGATIVE (NEGATIVE) Urine Bilirubin NEGATIVE (NEGATIVE) Urine Urobilinogen NEGATIVE (0-1) mg/dL Ur Leukocyte Esterase TRACE (NEGATIVE) Urine WBC (Auto) 0-2 (0-5) /HPF Urine RBC (Auto) 0-2 (0-2) /HPF U Hyaline Cast (Auto) 11-25 (0-2) /LPF U Epithel Cells (Auto) NONE (FEW) /HPF Urine Bacteria (Auto) RARE (NEGATIVE) /HPF Urine Mucus (Auto) SLIGHT (NEGATIVE) /HPF Urine Culture Reflexed NO (NO) Urine Glucose NEGATIVE (NEGATIVE) mg/dL Influenza Type A Ag (NEGATIVE) Influenza Type B Ag (NEGATIVE) RSV (PCR) (Negative) SARS-CoV-2 (PCR) (NEGATIVE) Slides for Path Review 11/05/20 11/05/20 Range/Units 10:23 11:03 WBC (4.0-10.5) K/mm3 RBC (4.1-5.4) M/mm3 Hgb (12.0-16.0) gm/dl Hct (35-47) % MCV (78-100) fl MCH (26-32) pg MCHC (32-36) g/dl RDW (11.5-14.0) % Plt Count (150-450) K/mm3 MPV (7.5-11.0) fl Gran % (36.0-66.0) % Eos # (Auto) (0-0.5) Absolute Lymphs (auto) (1.0-4.6) Absolute Monos (auto) (0.0-1.3) Lymphocytes % (24.0-44.0) % Monocytes % (0.0-12.0) % Eosinophils % (0.00-5.0) % Basophils % (0.0-0.4) % Absolute Granulocytes (1.4-6.9) Basophils # (0-0.4) PT (9.95-12.35) SECONDS INR (0.8-3.0) Sodium (137-145) mmol/L Potassium (3.5-5.1) mmol/L Chloride (98-107) mmol/L Carbon Dioxide (22-30) mmol/L Anion Gap (5-15) MEQ/L BUN (7-17) mg/dL Creatinine (0.52-1.04) mg/dL Estimated GFR ML/MIN Glucose (74-106) mg/dL Calcium (8.4-10.2) mg/dL Magnesium (1.6-2.3) mg/dL Total Bilirubin (0.2-1.3) mg/dL AST (14-36) U/L ALT (0-35) U/L Alkaline Phosphatase (38-126) U/L Troponin I < 0.012 (0.000-0.034) ng/mL Serum Total Protein (6.3-8.2) g/dL Albumin (3.5-5.0) g/dL Urine Color (YELLOW) Urine Appearance (CLEAR) Urine pH (5-6) Ur Specific [place] (1.005-1.025) Urine Protein (Negative) Urine Ketones (NEGATIVE) Urine Blood (0-5) William/ul Urine Nitrite (NEGATIVE) Urine Bilirubin (NEGATIVE) Urine Urobilinogen (0-1) mg/dL Ur Leukocyte Esterase (NEGATIVE) Urine WBC (Auto) (0-5) /HPF Urine RBC (Auto) (0-2) /HPF U Hyaline Cast (Auto) (0-2) /LPF U Epithel Cells (Auto) (FEW) /HPF Urine Bacteria (Auto) (NEGATIVE) /HPF Urine Mucus (Auto) (NEGATIVE) /HPF Urine Culture Reflexed (NO) Urine Glucose (NEGATIVE) mg/dL Influenza Type A Ag NEGATIVE (NEGATIVE) Influenza Type B Ag NEGATIVE (NEGATIVE) RSV (PCR) NEGATIVE (Negative) SARS-CoV-2 (PCR) NEGATIVE (NEGATIVE) Slides for Path Review - Radiology Impressions Radiology Exams & Impressions: Radiology Procedures Category Date Time Status HEAD WITHOUT CONTRAST [CT] Stat Exams 11/05/20 07:10 Completed - Other Procedures and Tests Respiratory Therapy 11/05/20 12:29 EEG 41-60 Minutes (Normal) ONCE EKG REPEAT IN AM Assessment/Plan (1) Syncope Current Visit: Yes Status: Acute Qualifiers: Assessment & Plan: echo was essentially normal in 2019, will get a fresh echo. concern with significant left carotid disease, will get MRA brain and neck to further evaluate. EEG pending, will get cardiology consult as well to complete workup. was recently started on 81mg aspirin, further recommendations pending investigation. Code(s): R55 - SYNCOPE AND COLLAPSE (2) HTN (hypertension) Current Visit: No Status: Chronic Qualifiers: Code(s): I10 - ESSENTIAL (PRIMARY) HYPERTENSION (3) Left carotid stenosis Current Visit: Yes Status: Acute Code(s): I65.22 - OCCLUSION AND STENOSIS OF LEFT CAROTID ARTERY
[2020-11-05] MEDS ORDERED: xanAX 0.5 MG PO ONE (13:26)
--- NOTE | 2020-11-05 16:46 | XRAY ---
Indication: Syncopal episodes. Left carotid stenosis. Conventional MRA neck was performed without contrast. Comparison: None Left and right common carotid, carotid bulb, internal carotid, and external carotid arteries are normal in course and caliber without critical stenosis or obstruction. Visualized vertebral arteries are bilaterally symmetric also without critical stenosis or obstruction. Impression: Negative MRA neck without contrast exam.
--- NOTE | 2020-11-05 16:52 | XRAY ---
Indication: Syncopal episodes. Left carotid stenosis. Multi-slab 3-D [id number] MRA [place] was performed. Comparison: None Right suprasellar segment of the internal carotid artery is attenuated compared to the contralateral without critical stenosis or obstruction. Left internal carotid artery is normal in course and caliber. Normal carotid terminus bilaterally with normal branching left A1 and left/right M1 segments. The right A1 segment is not visualized presumed occluded. More distal right A2 artery is supplied via anterior communicating artery. More anterior and middle cerebral arteries are normal in MRA appearance. Posterior circulation demonstrates normal MRA appearance to the basilar artery and basilar tip. Normal branching posterior cerebral and superior cerebellar arteries arteries bilaterally. Impression: 1. Right internal carotid artery suprasellar segment is attenuated without critical stenosis/obstruction. 2. 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 3. Remaining MRA [place] is negative.
[2020-11-05] MEDS ORDERED: NON-FORMULARY ITEM (Lovastatin [Lovastatin] 40 MG) PO SCH (22:00)
[2020-11-05] MEDS ORDERED: ZOCOR 20MG PO SCH (22:00)
[2020-11-06 05:27] LABS: Absolute Neutrophil Ct (ANC) 4.49 (1.4-6.9); BASOPHIL % 0.5 % (0.0-0.4); Basophil (Absolute #) 0.05 (0-0.4); Eosinophil % 2.8 % (0.00-5.0); Eosinophil (Absolute #) 0.26 (0-0.5); Hematocrit 34.7 % (35-47); Hemoglobin 10.3 gm/dl (12.0-16.0); Lymphocyte (Absolute #) 3.78 (1.0-4.6); Lymphocytes % 40.1 % (24.0-44.0); Mean Corpuscular Hgb Concent. 29.7 g/dl (32-36); Mean Platelet Volume 10.5 fl (7.5-11.0); Monocyte (Absolute #) 0.84 (0.0-1.3); Monocytes % 8.9 % (0.0-12.0); Neutrophil % 47.7 % (36.0-66.0); Platelet Count 374 K/mm3 (150-450); Red Blood Count 4.69 M/mm3 (4.1-5.4); Red Cell Distribution Width 19.1 % (11.5-14.0); White Blood Count 9.4 K/mm3 (4.0-10.5)
[2020-11-06 06:19] LABS: ALBUMIN 3.8 g/dL (3.5-5.0); ANION GAP 13.9 MEQ/L (5-15); BILIRUBIN,TOTAL 0.2 mg/dL (0.2-1.3); Calcium 8.8 mg/dL (8.4-10.2); Creatinine 1 1.04 mg/dL (0.52-1.04); EST GLOMERULAR FILTRATION RATE 54.5 ML/MIN; Potassium 3.8 mmol/L (3.5-5.1); Total Protein 6.9 g/dL (6.3-8.2)
--- NOTE | 2020-11-06 09:06 | DS ---
ADMISSION DIAGNOSIS: Syncope. DISCHARGE DIAGNOSES: 1) SYNCOPE. 2) CAROTID ARTERY STENOSIS. HOSPITAL COURSE: Briefly, Lissette Pena was in respiratory therapy cardiac testing this morning and scheduled to have a lexiscan. Shortly after having her IV started she had a true syncopal episode which was witnessed. She did not receive the lexiscan or any medications. It just occurred at rest as arrangements were being made for the testing therefore no testing was done. She was actually sent to the emergency room for evaluation. She had a negative head CT. Troponin was negative. She had some mild bradycardia in upper 50's otherwise was hemodynamically stable. I spoke with Dr. Juarez Claudio this morning and the patient was admitted for observation and ordered to have cardiac consultation with [facility] as she was scheduled to see them in the coming weeks due to the abnormal carotid Doppler that she had as an outpatient. It showed significant stenosis on the left. She has had no problems during the hospital stay. Dr. Craig saw her during the day today and actually called me and suggested to arrange for transfer to [facility] where she could have a good exam with cardiology as well as neurology consult due to her concerning symptoms. DISCHARGE EXAMINATION: Temperature 98.5F, pulse 68, blood pressure 117/69 and respiratory rate 16. Oxygen saturation is 97% on room air. GENERAL: She is alert, conversant and in no apparent distress. CVS: Regular rate and rhythm. No gallop. No rub. RESPIRATORY: Clear to auscultation bilaterally. ABDOMEN: Soft. SKIN: [place], warm and dry. NEUROLOGIC: She had no focal neurological deficits. She is alert and oriented. LAB DATA AND TESTS: Labs showed hemoglobin of 10.5, hematocrit 35. Renal functions showed BUN 33, creatinine 1.23. MRI of the head and neck showed right A1 segment occlusion with right internal carotid artery suprasellar segment attenuation. No critical stenosis was seen on the MRI or MRA. MRI of the brain was nonacute. She had echocardiogram with results pending. I have discussed these findings with Dr. Craig who suggested that I contact [facility] Hospitalist Dr. Miner who accepted the patient in transfer at approximately 1800 hours on 11/05/2020 and call with a bed assignment. DISCHARGE DISPOSITION: Transfer to [facility] as requested by manager change.
[2020-11-06] MEDS ORDERED: ECOTRIN 81 MG PO SCH (10:00)
[2020-11-06] MEDS ORDERED: Zestril 20 MG PO SCH (10:00)
[2020-11-06] MEDS ORDERED: NON-FORMULARY ITEM (Omeprazole [Omeprazole] 20 MG) PO SCH (10:00)
[2020-11-06] MEDS ORDERED: hydroDIURIL 25 MG PO SCH (10:00)
[2020-11-06] MEDS ORDERED: NON-FORMULARY ITEM (Lisinopril/Hydrochlorothiazide [Lisinopril-Hctz 20-12.5 Mg Tab] 1 EACH PO SCH (10:00)
[2020-11-06] MEDS ORDERED: Protonix 40MG Tablet PO SCH (10:00)
[2020-11-06 13:12] VITALS: BP 131/64; PULSE 62; O2SAT 91
--- NOTE | 2020-11-10 07:53 | ECHO ---
DATE OF PROCEDURE: 11/05/2020 CLINICAL INFORMATION: History of syncope. The M-mode 2D, and Doppler echocardiogram including color flow Doppler shows the left ventricle is normal in size at 4.5 cm. There is no thrombus present. The septal wall thickness is increased at 1.2 cm. The left ventricular posterior wall thickness is increased at 1.2 cm. There is normal contractility of the left ventricle. The ejection fraction is calculated to be 69%. The right ventricle is dilated at 3.5 cm. The left atrium is normal in size at 3.3 cm. The interatrial septum is intact. The right atrium is normal. The aortic valve opens well. It is trileaflet. There is no aortic regurgitation. There is mitral valve leaflet thickening. There is a trace amount of tricuspid regurgitation. The right ventricular systolic pressure is normal at 17 mm of [place]. The pulmonic valve is not well visualized. The aortic root is normal at 3.1 cm. There is a small pericardial effusion present. It should be noted that there are limited apical windows. IMPRESSION: 1) NORMAL CONTRACTILITY OF THE LEFT VENTRICLE. 2) BORDERLINE CONCENTRIC LEFT VENTRICULAR HYPERTROPHY. 3) TRACE AMOUNT OF TRICUSPID REGURGITATION.
== END 2020-11-06 15:29 | disposition home or self-care (01) ==
LOC: ED 06:59 → MED SURG 12:19
PROVIDERS: ADMIT Family Medicine; ATTEND Family Medicine
DX: R55 Syncope and collapse (principal); I65.22 Occlusion and stenosis of left carotid artery; I10 Essential (primary) hypertension; E78.00 Pure hypercholesterolemia, unspecified; R07.9 Chest pain, unspecified; Z79.899 Other long term (current) drug therapy; Z86.73 Personal history of transient ischemic attack (TIA), and cerebral infarction without residual deficits; R53.1 Weakness; Z20.828 Contact with and (suspected) exposure to other viral communicable diseases
CPT/HCPCS: 0241U; 36415; 70450; 70544; 70547; 80053; 81001; 82947; 83735; 84484; 85025; 85610; 93005; 93268; 93306; 99283; 99291; G0378; Q3014; J2785; A9270-GY

== ENCOUNTER 2020-12-16 10:16 | Emergency (ER) | payer MEDICARE, OTHER ==
[2020-12-16 10:53] VITALS: BP 96/78; PULSE 96; O2SAT 98
--- NOTE | 2020-12-16 10:59 | ERPHSYRPT ---
- History of Present Illness Time Seen by Provider: 12/16/20 10:35 Patient Subjective Stated Complaint: rash Triage Nursing Assessment: Patient brought back to ED via w/c and transferred to bed per self. Patient A+O X3. Patient's skin pink, warm and dry. Patient complains of rash to face that she has had for months. Patient has scattered red rash noted to face. Patient denies pain or discomfort. Physician History: 80 years old female presented in the ER with chief complaint of facial rash for months. Patient reported is more at nighttime after she takes a shower. It feels like sandpaper with burning pain sensations. She has tried oral antihistamines with no significant relief. Because of burning sensation she keeps picking. Timing/Duration: week(s), worse Quality: burning, itchy Severity: moderate Location: face Possible Causes: no cause identified Modifying Factors: Worsens With: scratching Associated Symptoms: change in skin texture, flushing, rash Allergies/Adverse Reactions: No Known Drug Allergies Allergy (Verified 12/16/20 10:38) Home Medications: Lovastatin 40 mg PO HS 02/22/15 [History] Omeprazole 20 mg PO DAILY 02/22/15 [History] Lisinopril/Hydrochlorothiazide [Lisinopril-Hctz 20-12.5 mg Tab] 1 each PO DAILY 11/22/19 [History] Aspirin EC 325 mg [Ecotrin 325 MG] 1 tab PO DAILY 12/16/20 [History] Cetirizine HCl [Allergy Relief] 1 tab PO DAILY 12/16/20 [History] Hx Tetanus, Diphtheria Vaccination/Date Given: No Hx Influenza Vaccination/Date Given: Yes Hx Pneumococcal Vaccination/Date Given: Yes Immunizations Up to Date: Yes Travel Risk - International Travel Have you traveled outside of the country in past 3 weeks: No - Coronavirus Screening Are you exhibiting any of the following symptoms?: No Close contact with a COVID-19 positive Pt in past 14-21 Days: No - Vaccine Status Have you recieved a Covid-19 vaccination: No - Review of Systems Constitutional: No Symptoms Eyes: No Symptoms Ears, Nose, & Throat: No Symptoms Respiratory: Dyspnea, Dyspnea on Exertion (CHAHAL) Cardiac: No Symptoms Abdominal/Gastrointestinal: No Symptoms Genitourinary Symptoms: No Symptoms Musculoskeletal: No Symptoms Skin: Rash Neurological: No Symptoms Psychological: No Symptoms Endocrine: No Symptoms Hematologic/Lymphatic: No Symptoms - Past Medical History Pertinent Past Medical History: Yes Neurological History: Stroke, TIA ENT History: No Pertinent History Cardiac History: High Cholesterol, Hypertension Respiratory History: No Pertinent History Endocrine Medical History: No Pertinent History Musculoskeletal History: No Pertinent History GI Medical History: GERD History: No Pertinent History Psycho-Social History: No Pertinent History Female Reproductive Disorders: No Pertinent History Other Medical History: episodes passing out - Past Surgical History Past Surgical History: No Neuro Surgical History: No Pertinent History Cardiac: No Pertinent History Respiratory: No Pertinent History Gastrointestinal: No Pertinent History Genitourinary: No Pertinent History Musculoskeletal: No Pertinent History Female Surgical History: No Pertinent History Other Surgical History: Kidney stones removed. - Social History Smoking Status: Never smoker Exposure to second hand smoke: No Drug Use: none Patient Lives Alone: Yes - Female History Hx Now: No - Nursing Vital Signs Nursing Vital Signs: Initial Vital Signs Temperature 98.0 F 12/16/20 10:42 Pulse Rate 96 H 12/16/20 10:42 Respiratory Rate 18 12/16/20 10:42 Blood Pressure 96/78 12/16/20 10:42 O2 Sat by Pulse Oximetry 97 12/16/20 10:42 Pain Scale Pain Intensity 0 - Physical Exam General Appearance: no apparent distress Eye Exam: PERRL/EOMI, eyes nml inspection Ears, Nose, Throat Exam: normal ENT inspection, TMs normal, pharynx normal Neck Exam: normal inspection, non-tender, supple, full range of motion Respiratory Exam: normal breath sounds, lungs clear Cardiovascular Exam: regular rate/rhythm, normal heart sounds Gastrointestinal/Abdomen Exam: soft, normal bowel sounds, No tenderness Back Exam: normal inspection, normal range of motion Extremity Exam: normal inspection, normal range of motion Neurologic Exam: alert, oriented x 3, cooperative Skin Exam: rash (Mild erythematous rash on bridge of nose and cheeks. At places skin break because of picking. No tenderness.) SpO2 Interpretation: normal SpO2: 98 O2 Delivery: Room Air - Progress Progress: unchanged Progress Note: 12/16/20 10:54 I will give her topical and oral steroid for a short course and have her follow- up outpatient with dermatology. Counseled pt/family regarding: diagnosis, need for follow-up - Departure Departure Disposition: Home Clinical Impression: Facial dermatitis Condition: Stable Critical Care Time: No Referrals: PEDRO MONTENEGRO MD [Primary Care Provider] - Follow Up with PCP/3 days HUEY CASTRO [NON-STAFF PHY W/O PRIVILEGES] - (Call for appointment) Instructions: Skin Rash (DC) Additional Instructions: Apply topical steroids twice a day for 5 days. Do not use it closer to eyes. Follow-up with primary care/dermatology for reevaluation. Return to ER for any worsening. Prescriptions: Hydrocortisone 1% Cream [Cortisone 1% Cream] 30 gm TP BID #1 tube Prednisone 20 mg [Deltasone 20 mg] 40 mg PO DAILY 5 Days #10 tablet
== END 2020-12-16 11:10 | disposition home or self-care (01) ==
LOC: ED 10:16
DX: L30.9 Dermatitis, unspecified (principal)
CPT/HCPCS: 99283

== ENCOUNTER 2021-04-21 14:17 | Emergency (ER) | payer MEDICARE, OTHER ==
[2021-04-21] MEDS ORDERED: Sodium Chloride 0.9% 1000 ML 1,000 ML IV STA (14:29)
[2021-04-21] MEDS ORDERED: MORPHINE SULFATE 2 MG INJ IV ONE ×2 (14:29→17:11)
[2021-04-21] MEDS ORDERED: Zofran 4 MG/2 ML VIAL IV ONE (14:29)
[2021-04-21] MEDS ORDERED: Zofran 4 MG/2 ML VIAL ONE (14:36)
[2021-04-21] MEDS ORDERED: MORPHINE SULFATE 2 MG INJ ONE ×2 (14:37→17:28)
[2021-04-21] MEDS ORDERED: Sodium Chloride 0.9% 1000 ML 1,000 ML ONE (14:37)
[2021-04-21 14:54] LABS: ALBUMIN 4.8 g/dL (3.5-5.0); ANION GAP 19.8 MEQ/L (5-15); Absolute Neutrophil Ct (ANC) 10.44 (1.4-6.9); BASOPHIL % 0.2 % (0.0-0.4); BILIRUBIN,TOTAL 0.6 mg/dL (0.2-1.3); Basophil (Absolute #) 0.03 (0-0.4); Calcium 9.9 mg/dL (8.4-10.2); Creatinine 1 1.29 mg/dL (0.52-1.04); EST GLOMERULAR FILTRATION RATE 42.4 ML/MIN; Eosinophil % 0.5 % (0.00-5.0); Eosinophil (Absolute #) 0.08 (0-0.5); Hematocrit 41.2 % (35-47); Lymphocyte (Absolute #) 3.41 (1.0-4.6); Mean Cell Volume 86.4 fl (78-100); Mean Corpuscular Hemoglobin 27.3 pg (26-32); Mean Corpuscular Hgb Concent. 31.6 g/dl (32-36); Mean Platelet Volume 10.8 fl (7.5-11.0); Monocyte (Absolute #) 0.84 (0.0-1.3); Monocytes % 5.7 % (0.0-12.0); Neutrophil % 70.6 % (36.0-66.0); Platelet Count 398 K/mm3 (150-450); Potassium 3.7 mmol/L (3.5-5.1); Red Blood Count 4.77 M/mm3 (4.1-5.4); Red Cell Distribution Width 22.2 % (11.5-14.0); Total Protein 7.9 g/dL (6.3-8.2); White Blood Count 14.8 K/mm3 (4.0-10.5)
--- NOTE | 2021-04-21 15:39 | ERPHSYRPT ---
- History of Present Illness Time Seen by Provider: 04/21/21 14:25 Historian: patient Exam Limitations: no limitations Patient Subjective Stated Complaint: Pt states that she hurts in the rectum and thinks that she is constipated but had a KUB done yesterday at the [facility] and it showed little to no feces, states that she has lost approx 35 pounds in the past couple of months, no appetite and nothing tastes good, was given a transfusion not long ago for anemia Triage Nursing Assessment: Pt brought to the ER by her son, jean claude sevilla, rates re ctum pain as 04/30, reports that she has a colonoscopy scheduled for 05/14/2021 and that she has never had one, pulses normal, skin n/w/d, appears to be in moderate pain, pt states that she had a lot of red blood in her stools a couple of weeks ago and that she contacted Dr. Montenegro and he thought that it had to do with constipation Physician History: Patient is a 81-year-old female presents to our emergency department for evaluation of rectal and lower abdominal pain and bleeding. Patient believes she may be constipated. Patient went to [facility] yesterday for the same. A KUB was performed. Little to no stool was observed on the KUB. Patient adds that she has lost 35 pounds in the past 2 months. She has decreased appetite. Patient was anemic recently and received PRBC transfusion. Patient's rectal pain rated 9 out of 10. Patient requesting pain medication. Patient denies ever having a colonoscopy. She currently has a colonoscopy scheduled for 05/14/2021. Symptoms are progressive. Symptoms are moderate in intensity. No specific worsening or improving factors. Patient voices no other complaints or concerns at this time. Timing/Duration: today Activities at Onset: none Quality: aching Abdominal Pain Onset Location: RLQ, LLQ, other (Rectal pain lower abdomen pain) Pain Radiation: no radiation Severity of Pain-Max: moderate Severity of Pain-Current: mild Modifying Factors: Improves With: nothing Associated Symptoms: loss of appetite, No chest pain, No diaphoresis, No fever/chills Previous symptoms: no prior history Allergies/Adverse Reactions: No Known Drug Allergies Allergy (Verified 04/21/21 14:32) Home Medications: Lovastatin 40 mg PO HS 02/22/15 [History] Omeprazole 20 mg PO DAILY 02/22/15 [History] Lisinopril/Hydrochlorothiazide [Lisinopril-Hctz 20-12.5 mg Tab] 1 each PO DAILY 11/22/19 [History] Aspirin EC 325 mg [Ecotrin 325 MG] 81 mg PO DAILY 12/16/20 [History] Clopidogrel Bisulfate 75 mg [PLAVIX 75 MG Tablet] 75 mg PO DAILY 04/09/21 [History] Linaclotide [Linzess] 145 mcg PO DAILY 04/21/21 [History] Hx Tetanus, Diphtheria Vaccination/Date Given: No Hx Influenza Vaccination/Date Given: Yes Hx Pneumococcal Vaccination/Date Given: Yes Travel Risk - International Travel Have you traveled outside of the country in past 3 weeks: No - Coronavirus Screening Are you exhibiting any of the following symptoms?: No Close contact with a COVID-19 positive Pt in past 14-21 Days: No - Vaccine Status Have you recieved a Covid-19 vaccination: Yes 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: [employer] - Vaccination Dates Date of 2cond Vaccination (if applicable): 11/02/2020 - Review of Systems Constitutional: No Symptoms, No Fever, No Chills Eyes: No Symptoms Ears, Nose, & Throat: No Symptoms Respiratory: No Symptoms, No Cough, No Dyspnea Cardiac: No Symptoms, No Chest Pain, No Edema, No Syncope Abdominal/Gastrointestinal: No Symptoms, No Abdominal Pain, No Nausea, No Vomiting, No Diarrhea Genitourinary Symptoms: No Symptoms, No Dysuria Musculoskeletal: No Symptoms, No Back Pain, No Neck Pain Skin: No Symptoms, No Rash Neurological: No Symptoms, No Dizziness, No Focal Weakness, No Sensory Changes Psychological: No Symptoms Endocrine: No Symptoms Hematologic/Lymphatic: No Symptoms Immunological/Allergic: No Symptoms All Other Systems: Reviewed and Negative - Past Medical History Pertinent Past Medical History: Yes Neurological History: Stroke, TIA ENT History: No Pertinent History Cardiac History: High Cholesterol, Hypertension Respiratory History: No Pertinent History Endocrine Medical History: No Pertinent History Musculoskeletal History: No Pertinent History GI Medical History: GERD History: No Pertinent History Psycho-Social History: No Pertinent History Female Reproductive Disorders: No Pertinent History Other Medical History: episodes passing out,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 - Social History Smoking Status: Never smoker Exposure to second hand smoke: No Drug Use: none Patient Lives Alone: Yes - Nursing Vital Signs Nursing Vital Signs: Initial Vital Signs Temperature 97.4 F 04/21/21 14:19 Pulse Rate 95 H 04/21/21 14:19 Blood Pressure 107/65 04/21/21 14:19 O2 Sat by Pulse Oximetry 96 04/21/21 14:19 Pain Scale Pain Intensity 5 - Physical Exam General Appearance: mild distress (Distress due to rectal pain.), alert Eye Exam: PERRL/EOMI, eyes nml inspection Ears, Nose, Throat Exam: normal ENT inspection, pharynx normal, moist mucous membranes Neck Exam: normal inspection, non-tender, supple, full range of motion Respiratory Exam: normal breath sounds, lungs clear, No respiratory distress Cardiovascular Exam: regular rate/rhythm, normal heart sounds Gastrointestinal/Abdomen Exam: soft, No tenderness, No mass Back Exam: normal inspection, normal range of motion, No CVA tenderness, No vertebral tenderness Extremity Exam: normal inspection, normal range of motion, pelvis stable Neurologic Exam: alert, oriented x 3, cooperative, normal mood/affect, nml cerebellar function, sensation nml, No motor deficits Skin Exam: normal color, warm, dry Lymphatic Exam: No adenopathy SpO2 Interpretation: normal SpO2: 96 O2 Delivery: Room Air - Course Nursing assessment & vital signs reviewed: Yes - CT Exams Abdomen/Pelvis CT Interpretation: Tele-radiologist Report Ordered Tests: Active Orders 24 hr Category Date Time Status IV Insertion STAT Care 04/21/21 14:29 Active ABDOMEN AND PELVIS W CONTRAST [CT] Stat Exams 04/21/21 14:30 Completed CBC W DIFF Stat Lab 04/21/21 14:40 Completed CMP Stat Lab 04/21/21 14:40 Completed LIPASE Stat Lab 04/21/21 14:40 Completed TROPONIN Q3H Lab 04/21/21 14:40 Completed TROPONIN Q3H Lab 04/21/21 16:56 Completed TROPONIN Q3H Lab 04/21/21 20:30 Ordered TROPONIN Q3H Lab 04/21/21 23:30 Ordered TROPONIN Q3H Lab 04/22/21 02:30 Ordered UA W/RFX UR CULTURE Stat Lab 04/21/21 14:30 Ordered Medication Summary Discontinued Medications Generic Name Dose Route Start Last Admin Trade Name Suzanna PRN Reason Stop Dose Admin Sodium Chloride 1,000 mls @ 999 mls/hr 04/21/21 14:29 04/21/21 15:44 Sodium Chloride 0.9% 1000 Ml IV 04/21/21 15:29 Infused .Q1H1M STA Infusion Sodium Chloride Confirm 04/21/21 14:37 Sodium Chloride 0.9% 1000 Ml Administered 04/21/21 14:38 Dose 1,000 mls @ ud .ROUTE .STK-MED ONE Morphine Sulfate 2 mg 04/21/21 14:29 04/21/21 14:42 Morphine Sulfate 2 Mg Inj IV 04/21/21 14:30 2 mg STAT ONE Administration Morphine Sulfate Confirm 04/21/21 14:37 Morphine Sulfate 2 Mg Inj Administered 04/21/21 14:38 Dose 2 mg .ROUTE .STK-MED ONE Morphine Sulfate 2 mg 04/21/21 17:11 04/21/21 17:29 Morphine Sulfate 2 Mg Inj IV 04/21/21 17:12 2 mg STAT ONE Administration Morphine Sulfate Confirm 04/21/21 17:28 Morphine Sulfate 2 Mg Inj Administered 04/21/21 17:29 Dose 2 mg .ROUTE .STK-MED ONE Ondansetron HCl 4 mg 04/21/21 14:29 04/21/21 14:42 Zofran 4 Mg/2 Ml Vial IV 04/21/21 14:30 4 mg STAT ONE Administration Ondansetron HCl Confirm 04/21/21 14:36 Zofran 4 Mg/2 Ml Vial Administered 04/21/21 14:37 Dose 4 mg .ROUTE .STK-MED ONE Lab/Rad Data: Laboratory Result Diagrams 04/21/21 14:40 04/21/21 14:40 Laboratory Results 04/21/21 04/21/21 04/21/21 Range/Units 16:56 14:40 14:40 WBC (4.0-10.5) K/mm3 RBC (4.1-5.4) M/mm3 Hgb (12.0-16.0) gm/dl Hct (35-47) % MCV (78-100) fl MCH (26-32) pg MCHC (32-36) g/dl RDW (11.5-14.0) % Plt Count (150-450) K/mm3 MPV (7.5-11.0) fl Gran % (36.0-66.0) % Eos # (Auto) (0-0.5) Absolute Lymphs (auto) (1.0-4.6) Absolute Monos (auto) (0.0-1.3) Lymphocytes % (24.0-44.0) % Monocytes % (0.0-12.0) % Eosinophils % (0.00-5.0) % Basophils % (0.0-0.4) % Absolute Granulocytes (1.4-6.9) Basophils # (0-0.4) Sodium 136 L (137-145) mmol/L Potassium 3.7 (3.5-5.1) mmol/L Chloride 102 (98-107) mmol/L Carbon Dioxide 18 L (22-30) mmol/L Anion Gap 19.8 H (5-15) MEQ/L BUN 30 H (7-17) mg/dL Creatinine 1.29 H (0.52-1.04) mg/dL Estimated GFR 42.4 ML/MIN Glucose 130 H (74-106) mg/dL Calcium 9.9 (8.4-10.2) mg/dL Total Bilirubin 0.60 (0.2-1.3) mg/dL AST 39 H (14-36) U/L ALT 19 (0-35) U/L Alkaline Phosphatase 91 (38-126) U/L Troponin I < 0.012 < 0.012 (0.000-0.034) ng/mL Serum Total Protein 7.9 (6.3-8.2) g/dL Albumin 4.8 (3.5-5.0) g/dL Lipase 270 (23-300) U/L Slides for Path Review 04/21/21 Range/Units 14:40 WBC 14.8 H (4.0-10.5) K/mm3 RBC 4.77 (4.1-5.4) M/mm3 Hgb 13.0 (12.0-16.0) gm/dl Hct 41.2 (35-47) % MCV 86.4 (78-100) fl MCH 27.3 (26-32) pg MCHC 31.6 L (32-36) g/dl RDW 22.2 H (11.5-14.0) % Plt Count 398 (150-450) K/mm3 MPV 10.8 (7.5-11.0) fl Gran % 70.6 H (36.0-66.0) % Eos # (Auto) 0.08 (0-0.5) Absolute Lymphs (auto) 3.41 (1.0-4.6) Absolute Monos (auto) 0.84 (0.0-1.3) Lymphocytes % 23.0 L (24.0-44.0) % Monocytes % 5.7 (0.0-12.0) % Eosinophils % 0.5 (0.00-5.0) % Basophils % 0.2 (0.0-0.4) % Absolute Granulocytes 10.44 H (1.4-6.9) Basophils # 0.03 (0-0.4) Sodium (137-145) mmol/L Potassium (3.5-5.1) mmol/L Chloride (98-107) mmol/L Carbon Dioxide (22-30) mmol/L Anion Gap (5-15) MEQ/L BUN (7-17) mg/dL Creatinine (0.52-1.04) mg/dL Estimated GFR ML/MIN Glucose (74-106) mg/dL Calcium (8.4-10.2) mg/dL Total Bilirubin (0.2-1.3) mg/dL AST (14-36) U/L ALT (0-35) U/L Alkaline Phosphatase (38-126) U/L Troponin I (0.000-0.034) ng/mL Serum Total Protein (6.3-8.2) g/dL Albumin (3.5-5.0) g/dL Lipase (23-300) U/L Slides for Path Review YES - Progress Progress: improved Progress Note: Patient had a disimpaction and enema. A large bowel movement was achieved. Patient feels better. No indication for further work-up at this time. Will discharge home. Patient agrees to follow-up with primary care doctor within 48 hours for reevaluation. Portions of this note were created with voice recognition technology. There may be grammatical, spelling, punctuation or sound alike errors 04/21/21 18:55 Counseled pt/family regarding: lab results, diagnosis, need for follow-up, rad results - Departure Departure Disposition: Home Clinical Impression: Fecal impaction in rectum, Fatty liver, Pancreatic calcification, Bilateral renal cysts Condition: Stable Critical Care Time: No Referrals: PEDRO MONTENEGRO MD [Primary Care Provider] - Additional Instructions: Discharge/Care Plan VIBHA ESPARZA was seen on 04/21/21 in the Emergency Room. The patient was counseled regarding Diagnosis,Lab results, Imaging studies, need for follow up and when to return to the Emergency Room. Prescriptions given: Discharge Note I have spoken with the patient and/or caregivers. I have explained the patient's condition, diagnosis and treatment plan based on the information available to me at this time. I have answered the patient's and/or caregiver's questions and addressed any concerns. The patient and/or caregivers have as good understanding of the patient's diagnosis, condition and treatment plan as can be expected at this point. The vital signs have been stable. The patient's condition is stable and appropriate for discharge from the emergency department. The patient will pursue further outpatient evaluation with the primary care physician or other designated or consulting physician as outlined in the disc harge instructions. The patient and/or caregivers are agreeable to this plan of care and follow-up instructions have been explained in detail. The patient and/or caregivers have received these instruction. The patient/and or caregivers are aware that any significant change in condition or worsening of symptoms should prompt an immediate return to this or the closest emergency department or call 911.
--- NOTE | 2021-04-21 16:31 | XRAY ---
Indication: Abdomen pain and constipation. Rectal mass. Multiple contiguous images obtained through the abdomen and pelvis using 80 cc Isovue 370 contrast. Comparison: November 23, 2019. Lung bases again demonstrates bibasilar subsegmental atelectasis/scarring. No infiltrate or effusion. Heart not enlarged. Noncontrasted stomach and bowel loops appear nonobstructed. Normal air-filled appendix. Little to no colonic fecal debris. New mild rectal fecal impaction. No free fluid/air. Stable mild fatty liver and minimal chronic pancreatitis calcifications. A few bilateral renal cysts largest 1.5 cm left mid kidney not seen on previous noncontrast exam. Remaining liver, gallbladder, pancreas, spleen, adrenal glands, kidneys, ureters, bladder, and uterus are unremarkable. There remains mild aortoiliac calcifications. No AAA or pathological retroperitoneal lymphadenopathy. Osseous structures intact again with minimal degenerative changes throughout the spine. Impression: 1. New mild rectal fecal impaction. 2. Incidental bilateral renal cysts, fatty liver, and chronic pancreatitis calcifications.
[2021-04-21 16:42] LABS: Slide Review 1 YES
[2021-04-21 17:09] VITALS: O2SAT 96
[2021-04-21 17:53] VITALS: BP 126/82
[2021-04-21 18:58] VITALS: PULSE 76
== END 2021-04-21 19:03 | disposition home or self-care (01) ==
LOC: ED 14:17
DX: K56.41 Fecal impaction (principal); K76.0 Fatty (change of) liver, not elsewhere classified; K86.89 Other specified diseases of pancreas; N28.1 Cyst of kidney, acquired; Z79.899 Other long term (current) drug therapy; I10 Essential (primary) hypertension; E78.00 Pure hypercholesterolemia, unspecified; Z86.73 Personal history of transient ischemic attack (TIA), and cerebral infarction without residual deficits
CPT/HCPCS: 36000; 36415; 74177; 80053; 83690; 84484; 85025; 96374; 96375; 96376; 99284; J2270; J2405

== ENCOUNTER 2021-05-06 11:23 | Observation (INO) | payer MEDICARE, OTHER ==
--- NOTE | 2021-05-06 12:04 | ERPHSYRPT ---
- History of Present Illness Time Seen by Provider: 05/06/21 11:28 Source: patient, EMS Exam Limitations: no limitations Patient Subjective Stated Complaint: fall x 2 with possible LOC today Triage Nursing Assessment: pt to ED by EMS for fall x 2 today. takes plavix, possible LOC. small contusion noted to back of head, no external bleeding. no pa in reported. small contusion noted to back of L elbow that does cause pain with touch. Physician History: 81 years old female with history of hypertension, hyperlipidemia, coronary artery disease presented in the ER with 3 months history of generalized weakness fatigue tiredness, decreased appetite tired, loss of taste and 30 pound weight loss. Patient reports decreased oral intake and decline in her overall health lately and was in the bathroom when she fell with unknown cause and hit her head. Unsure about loss of consciousness. Denies any chest pain palpitations or shortness of breath before or after the fall. Patient reports she is recently placed on Linzess, was having mild abdominal cramping, was straining to defecate but could not and the next thing she was on the floor. On EMS arrival patient blood pressure was 90 systolic, given fluid bolus and on presentation its 119 systolic. She does not report any focal numbness tingling or weakness. No visual disturbance. No difficulty speech. Occurred: this morning Reason for Fall: unknown Injuries/Pain Location: head Loss of Consciousness: unsure Quality: dullness Severity of Pain-Max: mild Severity of Pain-Current: mild Modifying Factors: Improves With: nothing Associated Symptoms (Fall): No abdominal pain, No back pain, No confusion, No chest pain, No dizziness, No extremity injury, No headache, No lightheadedness, No muscle spasms, No nausea, No neck pain, No ringing in ears, No seizures, No shortness of breath, No slurred speech, No trouble walking, No vomiting, No vision changes Allergies/Adverse Reactions: No Known Drug Allergies Allergy (Verified 05/06/21 18:38) Home Medications: Lovastatin 40 mg PO HS 02/22/15 [History] Omeprazole 20 mg PO DAILY 02/22/15 [History] Lisinopril/Hydrochlorothiazide [Lisinopril-Hctz 20-12.5 mg Tab] 1 each PO DAILY 11/22/19 [History] Aspirin EC 325 mg [Ecotrin 325 MG] 81 mg PO DAILY 12/16/20 [History] Clopidogrel Bisulfate 75 mg [PLAVIX 75 MG Tablet] 75 mg PO DAILY 04/09/21 [History] Linaclotide [Linzess] 145 mcg PO DAILY 04/21/21 [History] Hx Tetanus, Diphtheria Vaccination/Date Given: Yes Hx Influenza Vaccination/Date Given: Yes Hx Pneumococcal Vaccination/Date Given: Yes Immunizations Up to Date: Yes Travel Risk - International Travel Have you traveled outside of the country in past 3 weeks: No - Coronavirus Screening Are you exhibiting any of the following symptoms?: No Close contact with a COVID-19 positive Pt in past 14-21 Days: No - Vaccine Status Have you recieved a Covid-19 vaccination: Yes 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 - Vaccination Dates Dates if Unknown: 2 doses - Review of Systems Constitutional: Fatigue, Weakness Eyes: No Symptoms Ears, Nose, & Throat: No Symptoms Respiratory: No Symptoms Cardiac: No Symptoms Abdominal/Gastrointestinal: No Symptoms Genitourinary Symptoms: No Symptoms Musculoskeletal: No Symptoms Skin: No Symptoms Neurological: Headache Psychological: No Symptoms Endocrine: No Symptoms Hematologic/Lymphatic: No Symptoms Immunological/Allergic: No Symptoms - Past Medical History Pertinent Past Medical History: Yes Neurological History: Stroke, TIA ENT History: No Pertinent History Cardiac History: High Cholesterol, Hypertension Respiratory History: No Pertinent History Endocrine Medical History: No Pertinent History Musculoskeletal History: No Pertinent History GI Medical History: GERD History: No Pertinent History Psycho-Social History: No Pertinent History Female Reproductive Disorders: No Pertinent History Other Medical History: episodes passing out,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 - Social History Smoking Status: Never smoker Exposure to second hand smoke: No Drug Use: none Patient Lives Alone: Yes - Female History Hx Now: No - Nursing Vital Signs Nursing Vital Signs: Initial Vital Signs Temperature 96.9 F 05/06/21 11:26 Pain Scale Pain Intensity 4 - Foss Coma Score Best Eye Response (Foss): (4) open spontaneously Best Verbal Response (Jocelyn): (5) oriented Best Motor Response (Foss): (6) obeys commands Jocelyn Total: 15 - Physical Exam General Appearance: no apparent distress, alert Head Injury: contusions, swelling, tenderness (3 x 2 cm hematoma left posterior parietal area with no step in deformity.), No active bleeding, No Awan's Sign, No lacerations, No raccoon eyes Eye Exam: PERRL/EOMI, eyes nml inspection ENT Exam: airway nml, evidence of ENT injury, No dental injury Neck Exam: supple, trachea midline, full range of motion, normal alignment, normal inspection Respiratory/Chest Exam: normal breath sounds, respiratory distress Cardiovascular Exam: normal heart sounds, regular rate/rhythm Gastrointestinal Exam: soft, normal bowel sounds, No tenderness Rectal Exam: deferred, not done Back Exam: normal inspection, normal range of motion, No CVA tenderness Extremity Exam: normal inspection, normal range of motion, capillary refill <3 sec, pelvis stable Neurologic Exam: alert, oriented x 3, cooperative, 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 II-XII nml as tested, normal mood/affect, nml cerebellar function, sensation nml, No motor deficits, No sensory deficit Skin Exam: normal color SpO2 Interpretation: normal SpO2: 97 O2 Delivery: Room Air Ordered Tests: Medication Summary Discontinued Medications Generic Name Dose Route Start Last Admin Trade Name Freq PRN Reason Stop Dose Admin Acetaminophen 650 mg 05/06/21 17:51 Tylenol 325 Mg PO 06/05/21 17:50 Q4H PRN PRN PAIN AND/OR FEVER Hydrocodone Bitart/Acetaminophen 1 tab 05/06/21 13:16 05/06/21 13:47 Clark 5/325 Mg PO 05/06/21 13:17 Not Given STAT ONE Hydrocodone Bitart/Acetaminophen 1 tab 05/06/21 19:51 05/08/21 08:29 Clark 5/325 Mg PO 05/11/21 19:50 1 tab Q4H PRN PRN Administration PAIN Albuterol/Ipratropium 3 ml 05/06/21 17:51 Duoneb 0.5-3 Mg/3 Ml Neb IH 06/05/21 17:50 Q4HPRN PRN SHORTNESS OF BREATH/WHEEZING Sodium Chloride 1,000 mls @ 100 mls/hr 05/06/21 13:30 05/07/21 05:48 Sodium Chloride 0.9% 1000 Ml IV 06/05/21 13:29 100 mls/hr .Q10H SANDRA Administration Vancomycin HCl Confirm 05/06/21 13:48 Vancomycin 1 Gram/200 Ml Bag Administered 05/06/21 13:49 Dose 1 gm in 200 mls @ ud IV .STK-MED ONE Sodium Chloride Confirm 05/06/21 14:10 Sodium Chloride 0.9% 1000 Ml Administered 05/06/21 14:11 Dose 1,000 mls @ ud .ROUTE .STK-MED ONE Potassium Chloride/Sodium Chloride 1,000 mls @ 75 mls/hr 05/06/21 17:51 05/09/21 04:18 Sodium Chloride 0.9% W/ 20 Meq Kcl/Liter IV 06/05/21 17:50 75 mls/hr .[id number] SANDRA Administration Sodium Chloride Confirm 05/07/21 05:37 Sodium Chloride 0.9% 1000 Ml Administered 05/07/21 05:38 Dose 1,000 mls @ ud .ROUTE .STK-MED ONE Metronidazole 500 mg in 100 mls @ 200 mls/hr 05/08/21 14:00 05/09/21 06:20 Flagyl 500 Mg Ivpb IV 06/07/21 13:59 200 mls/hr Q8HT SANDRA Administration Morphine Sulfate 2 mg 05/06/21 13:25 05/06/21 14:03 Morphine Sulfate 2 Mg Inj IV 05/06/21 13:26 2 mg STAT ONE Administration Morphine Sulfate Confirm 05/06/21 13:48 Morphine Sulfate 2 Mg Inj Administered 05/06/21 13:49 Dose 2 mg .ROUTE .STK-MED ONE Morphine Sulfate 2 mg 05/08/21 09:49 05/08/21 22:02 Morphine Sulfate 2 Mg Inj IV 05/13/21 09:48 2 mg Q4H PRN PRN Administration PAIN Ondansetron HCl 4 mg 05/06/21 13:25 05/06/21 14:03 Zofran 4 Mg/2 Ml Vial IV 05/06/21 13:26 4 mg STAT ONE Administration Ondansetron HCl Confirm 05/06/21 13:48 Zofran 4 Mg/2 Ml Vial Administered 05/06/21 13:49 Dose 4 mg .ROUTE .STK-MED ONE Ondansetron HCl 4 mg 05/06/21 17:51 05/06/21 20:30 Zofran 4 Mg/2 Ml Vial IV 06/05/21 17:50 4 mg Q6H PRN PRN Administration NAUSEA/VOMITING Pantoprazole Sodium 40 mg 05/07/21 10:00 05/08/21 08:30 Protonix 40 Mg Iv IV 06/06/21 09:59 40 mg Q24H10 SANDRA Administration Polyethylene Glycol/Electrolytes 4,000 ml 05/07/21 20:30 05/07/21 23:21 Golytely Solution 4000 Ml PO 05/07/21 20:31 Not Given ONCE@1400 ONE Lab/Rad Data: Laboratory Result Diagrams 05/06/21 12:35 05/06/21 12:35 Laboratory Results 05/06/21 05/06/21 05/06/21 Range/Units 15:45 15:00 12:35 WBC (4.0-10.5) K/mm3 RBC (4.1-5.4) M/mm3 Hgb (12.0-16.0) gm/dl Hct (35-47) % MCV (78-100) fl MCH (26-32) pg MCHC (32-36) g/dl RDW (11.5-14.0) % Plt Count (150-450) K/mm3 MPV (7.5-11.0) fl Segmented Neutrophils (36.0-66.0) % Band Neutrophils (0.0-2.0) % Lymphocytes (Manual) (24-44) % Monocytes (Manual) (0.0-12.0) % Hypochromia Platelet Estimate (NORMAL) RBC Morphology Anisocytosis Sodium (137-145) mmol/L Potassium (3.5-5.1) mmol/L Chloride (98-107) mmol/L Carbon Dioxide (22-30) mmol/L Anion Gap (5-15) MEQ/L BUN (7-17) mg/dL Creatinine (0.52-1.04) mg/dL Estimated GFR ML/MIN Glucose (74-106) mg/dL Lactic Acid (0.4-2.0) Calcium (8.4-10.2) mg/dL Magnesium (1.6-2.3) mg/dL Total Bilirubin (0.2-1.3) mg/dL AST (14-36) U/L ALT (0-35) U/L Alkaline Phosphatase (38-126) U/L Troponin I < 0.012 < 0.012 (0.000-0.034) ng/mL NT-Pro-B Natriuret Pep (0-1800) pg/mL Serum Total Protein (6.3-8.2) g/dL Albumin (3.5-5.0) g/dL SARS-CoV-2 (PCR) NEGATIVE (NEGATIVE) 05/06/21 05/06/21 05/06/21 Range/Units 12:35 12:35 12:33 WBC 31.2 H* (4.0-10.5) K/mm3 RBC 4.40 (4.1-5.4) M/mm3 Hgb 12.1 (12.0-16.0) gm/dl Hct 38.3 (35-47) % MCV 87.0 (78-100) fl MCH 27.5 (26-32) pg MCHC 31.6 L (32-36) g/dl RDW 19.4 H (11.5-14.0) % Plt Count 356 (150-450) K/mm3 MPV 10.6 (7.5-11.0) fl Segmented Neutrophils 81 H (36.0-66.0) % Band Neutrophils 11 H (0.0-2.0) % Lymphocytes (Manual) 6 L (24-44) % Monocytes (Manual) 2 (0.0-12.0) % Hypochromia 1+ Platelet Estimate NORMAL (NORMAL) RBC Morphology ABNORMAL Anisocytosis 1+ Sodium 135 L (137-145) mmol/L Potassium 3.4 L (3.5-5.1) mmol/L Chloride 102 (98-107) mmol/L Carbon Dioxide 21 L (22-30) mmol/L Anion Gap 15.3 H (5-15) MEQ/L BUN 24 H (7-17) mg/dL Creatinine 1.21 H (0.52-1.04) mg/dL Estimated GFR 45.6 ML/MIN Glucose 110 H (74-106) mg/dL Lactic Acid 3.4 H (0.4-2.0) Calcium 9.1 (8.4-10.2) mg/dL Magnesium 2.0 (1.6-2.3) mg/dL Total Bilirubin 0.30 (0.2-1.3) mg/dL AST 47 H (14-36) U/L ALT 21 (0-35) U/L Alkaline Phosphatase 88 (38-126) U/L Troponin I (0.000-0.034) ng/mL NT-Pro-B Natriuret Pep 45.9 (0-1800) pg/mL Serum Total Protein 6.9 (6.3-8.2) g/dL Albumin 4.2 (3.5-5.0) g/dL SARS-CoV-2 (PCR) (NEGATIVE) - Progress Progress: improved Progress Note: 05/06/21 16:21 81 years old is evaluated for generalized weakness, decreased oral intake and fall with injury to scalp and questionable loss of consciousness/near syncopal episode. Her pressure was low on EMS arrival but improved after fluids. She is not in any distress. Not tachypneic or tachycardic. Abdominal exam soft nontender. She is complaining of arch to go but has some rectal pain without any hematochezia. Work-up showed white count of 31 but no obvious source. I have obtained CT abdomen pelvis without contrast because of her low GFR and is grossly negative. Nonsurgical abdomen by exam and notes signs symptoms suggesting acute ischemia. Does have lactate of 3.4 which could be from hypotension/dehydration. Recommended repeating lactate but patient refused and also wanted to repeat CBC to make sure is not a lab error but she refused. Discussed with Dr. Lacey, reviewed history and work-up and he is well familiar with patient, thinks patient needs colonoscopy for further evaluation, agree with not starting her on antibiotics and repeating blood work in the morning. She remained asymptomatic while in the ER and is being admitted. Discussed with : Francheska Will see patient in: hospital (observation) Counseled pt/family regarding: lab results, diagnosis, rad results - Departure Departure Disposition: Observation Clinical Impression: Near syncope, General weakness Scalp contusion Qualifiers: Encounter type: initial encounter Qualified Code(s): S00.03XA - Contusion of scalp, initial encounter Leukocytosis Qualifiers: Leukocytosis type: unspecified Qualified Code(s): D72.829 - Elevated white blood cell count, unspecified Condition: Stable Critical Care Time: No
--- NOTE | 2021-05-06 12:16 | XRAY ---
Indication: Status post fall. Comparison: November 12, 2018. Portable chest unchanged again demonstrating normal heart and lungs with incidental chronic right hemidiaphragm elevation. Bony thorax intact. No new/acute findings.
--- NOTE | 2021-05-06 12:23 | XRAY ---
Indication: Headache and pain following fall. Multiple contiguous axial images obtained through the head without contrast. Comparison: November 05, 2020. Again age-appropriate global atrophy and moderate periventricular degenerative micro-ischemia bilaterally. No acute intracranial hemorrhage, abnormal extra-axial fluid collection, or mass effect. Fourth ventricle is midline without hydrocephalus. Bony calvarium intact. New small left posterior parietal scalp hematoma near the vertex. Visualized paranasal sinuses and mastoid air cells are clear. Impression: Continued nonacute senile brain with new left parietal scalp hematoma.
--- NOTE | 2021-05-06 12:26 | XRAY ---
Indication: Neck pain following fall. Multiple contiguous axial images obtained through the cervical spine. Sagittal and coronal reformatted images obtained. Comparison: None. Osseous structures demineralized consistent with patient's age. Axial images negative for acute fracture, suspicious bony lesions, or spinal canal stenosis. Mild/moderate C3-C7 degenerative endplate spurring and mild multilevel bilateral degenerative facet arthropathy. Sagittal and coronal reformatted images demonstrates mild lordotic reversal, positional versus paraspinal spasm. C3-C7 degenerative disc space loss. No acute compression fracture, subluxation, or jumped facet. Normal appearing craniocervical junction. Visualized noncontrasted soft tissues demonstrates left carotid stent graft and 6 mm left thyroid hypodense nodule/cyst. Lung apices are clear. Impression: 1. Cervical lordotic reversal, positional versus paraspinal spasm. 2. Negative acute fracture/subluxation. 3. Incidental osteopenia, multilevel degenerative spondylosis, tiny left thyroid hypodense nodule/cyst, and left carotid stent graft.
[2021-05-06 13:06] LABS: Hematocrit 38.3 % (35-47); Hemoglobin 12.1 gm/dl (12.0-16.0); Mean Corpuscular Hemoglobin 27.5 pg (26-32); Mean Corpuscular Hgb Concent. 31.6 g/dl (32-36); Mean Platelet Volume 10.6 fl (7.5-11.0); Platelet Count 356 K/mm3 (150-450); Red Cell Distribution Width 19.4 % (11.5-14.0)
[2021-05-06 13:08] LABS: White Blood Count 31.2 K/mm3 (4.0-10.5)
[2021-05-06 13:16] LABS: ALBUMIN 4.2 g/dL (3.5-5.0); ANION GAP 15.3 MEQ/L (5-15); BILIRUBIN,TOTAL 0.3 mg/dL (0.2-1.3); Calcium 9.1 mg/dL (8.4-10.2); Creatinine 1 1.21 mg/dL (0.52-1.04); EST GLOMERULAR FILTRATION RATE 45.6 ML/MIN; NT PRO BNP 45.9 pg/mL (0-1800); Potassium 3.4 mmol/L (3.5-5.1); Total Protein 6.9 g/dL (6.3-8.2)
[2021-05-06] MEDS ORDERED: NORCO 5/325 MG PO ONE (13:16)
[2021-05-06] MEDS ORDERED: MORPHINE SULFATE 2 MG INJ IV ONE (13:25)
[2021-05-06] MEDS ORDERED: Zofran 4 MG/2 ML VIAL IV ONE (13:25)
[2021-05-06] MEDS ORDERED: MORPHINE SULFATE 2 MG INJ ONE (13:48)
[2021-05-06] MEDS ORDERED: VANCOMYCIN 1 GRAM/200 ML BAG 1 GM/200 ML PIGGYBACK IV ONE (13:48)
[2021-05-06] MEDS ORDERED: Zofran 4 MG/2 ML VIAL ONE (13:48)
[2021-05-06 14:09] LABS: BAND 11 % (0.0-2.0); Lymphocytes 6 % (24-44); Monocyte 2 % (0.0-12.0); Neutrophils 81 % (36.0-66.0); Total Cells Counted 100
[2021-05-06] MEDS ORDERED: Sodium Chloride 0.9% 1000 ML 1,000 ML ONE (14:10)
[2021-05-06 14:11] LABS: ANISOCYTOSIS 1+; Hypochromia 1+; Platelet Estimate NORMAL (NORMAL)
[2021-05-06] MEDS: Sodium Chloride 0.9% 1000 ML 1,000 ML IV SCH (14:24)
--- NOTE | 2021-05-06 14:29 | XRAY ---
Indication: Rectal pain, diarrhea, and weight loss. Multiple contiguous axial images obtained through the abdomen and pelvis without contrast. Comparison: April 21, 2021. Lung bases again demonstrates minimal bibasilar subsegmental atelectasis/scarring less than before and chronic right hemidiaphragm elevation. Heart not enlarged. Noncontrasted stomach and bowel loops remain nonobstructed with normal appendix. No free fluid/air. Stable bilateral renal cysts, fatty liver, and chronic pancreatitis calcifications. Remaining liver, gallbladder, pancreas, spleen, adrenal glands, kidneys, ureters, bladder, and uterus are unremarkable for noncontrast exam. Again mild aortoiliac calcifications. Impression: 1. Stable chronic right hemidiaphragm elevation, fatty liver, bilateral renal cysts, and chronic pancreatitis calcifications. 2. Remaining CT abdomen/pelvis without contrast exam is again negative.
[2021-05-06] MEDS ORDERED: TYLENOL 325 MG PO PRN (17:51)
[2021-05-06] MEDS ORDERED: DUONEB 0.5-3 MG/3 ml Neb IH PRN (17:51)
[2021-05-06] MEDS ORDERED: Zofran 4 MG/2 ML VIAL IV PRN (17:51)
[2021-05-06] MEDS: NORCO 5/325 MG PO PRN (20:30)
[2021-05-06] MEDS: Sodium Chloride 0.9% W/ 20 mEq KCl/LITER 1,000 ML IV SCH (21:32)
[2021-05-07] MEDS ORDERED: Sodium Chloride 0.9% 1000 ML 1,000 ML ONE (05:37)
[2021-05-07 05:48] LABS: Hematocrit 32.8 % (35-47); Hemoglobin 10.4 gm/dl (12.0-16.0); Mean Corpuscular Hemoglobin 27.6 pg (26-32); Mean Corpuscular Hgb Concent. 31.7 g/dl (32-36); Mean Platelet Volume 10.6 fl (7.5-11.0); Platelet Count 290 K/mm3 (150-450); Red Blood Count 3.77 M/mm3 (4.1-5.4); Red Cell Distribution Width 19.3 % (11.5-14.0)
[2021-05-07] MEDS: Sodium Chloride 0.9% 1000 ML 1,000 ML IV SCH (05:48)
[2021-05-07 06:09] LABS: ALBUMIN 3.2 g/dL (3.5-5.0); ALKALINE PHOSPHATASE 61 U/L (38-126); ANION GAP 11.4 MEQ/L (5-15); BLOOD UREA NITROGEN 21 mg/dL (7-17); CHLORIDE 102 mmol/L (98-107); Calcium 8.8 mg/dL (8.4-10.2); Carbon Dioxide 25 mmol/L (22-30); EST GLOMERULAR FILTRATION RATE > 60.0 ML/MIN; Glucose 88 mg/dL (74-106); Potassium 3.3 mmol/L (3.5-5.1); SGOT/AST 25 U/L (14-36); SGPT/ALT 14 U/L (0-35); SODIUM 135 mmol/L (137-145); Total Protein 5.6 g/dL (6.3-8.2)
--- NOTE | 2021-05-07 08:12 | PCM.HP ---
History of Present Illness - Chief Complaint Chief Complaint: near syncope, gen weakness History of Present Illness: is a 81 year old female who presented to the ER yesterday, she passed out straining on the stool, she has been constipated but has a several month history of abd pain, weight loss and poor appetite. has been to see Dr Babcock and was scheduled to have an EGD/Colonoscopy in [place] next week, I believe it is with the Freeman/Leuking/Puccia group but she seems uncertain of this. She continues to complain of weakness, everything tastes bad, she has indeed had a significant weight loss over the last several months, noncontrasted ct scan was unremarkable of abd/pel in ER on admission. Her bp was low on arrival which likely explains her syncope as a vasovagal incident while straining on the toilet. - Review of Systems Constitutional: Weakness, Weight Loss, No Fever, No Chills Abdominal/Gastrointestinal: Abdominal Pain, Diarrhea, Constipation Musculoskeletal: No Back Pain, No Neck Pain Skin: No Rash All Other Systems: Reviewed and Negative Medications & Allergies Home Medications: Home Medication List Lovastatin 40 mg PO HS 02/22/15 [History Confirmed 05/06/21] Omeprazole 20 mg PO DAILY 02/22/15 [History Confirmed 05/06/21] Lisinopril/Hydrochlorothiazide [Lisinopril-Hctz 20-12.5 mg Tab] 1 each PO DAILY 11/22/19 [History Confirmed 05/06/21] Aspirin EC 325 mg [Ecotrin 325 MG] 81 mg PO DAILY 12/16/20 [History Confirmed 05/06/21] Clopidogrel Bisulfate 75 mg [PLAVIX 75 MG Tablet] 75 mg PO DAILY 04/09/21 [History Confirmed 05/06/21] Linaclotide [Linzess] 145 mcg PO DAILY 04/21/21 [History Confirmed 05/06/21] Allergies/Adverse Reactions: Allergies Allergy/AdvReac Type Severity Reaction Status Date / Time No Known Drug Allergies Allergy Verified 05/06/21 18:38 - Past Medical History Past Medical History: Yes Neurological History: Stroke, TIA ENT History: No Pertinent History Cardiac History: High Cholesterol, Hypertension Respiratory History: No Pertinent History Endocrine Medical History: No Pertinent History Musculoskelatal History: No Pertinent History GI Medical History: GERD History: No Pertinent History Pyscho-Social History: No Pertinent History Reproductive Disorders: No Pertinent History Comment: episodes passing out,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 - Social History Smoking Status: Never smoker Exposure to second hand smoke: No Alcohol: None Drug Use: none - Physical Exam Vital Signs: Vital Signs - 24 hr Temp Pulse Resp BP Pulse Ox 05/07/21 04:15 98.3 F 63 16 101/52 96 05/07/21 03:49 18 05/07/21 00:00 16 05/06/21 23:40 98.6 F 61 16 96/53 96 05/06/21 21:10 58 L 16 96 05/06/21 20:00 18 05/06/21 18:44 99.0 F 82 16 127/56 96 05/06/21 17:18 76 16 103/65 95 05/06/21 16:31 97 05/06/21 16:20 84 20 118/68 98 05/06/21 15:21 69 20 108/71 96 05/06/21 14:24 72 16 112/72 97 05/06/21 11:26 96.9 F General Appearance: no apparent distress Neurologic Exam: alert, cooperative Respiratory Exam: normal breath sounds, lungs clear, No respiratory distress Cardiovascular Exam: regular rate/rhythm, normal heart sounds, normal peripheral pulses Gastrointestinal/Abdomen Exam: soft, normal bowel sounds, No tenderness, No mass Extremity Exam: normal inspection, normal range of motion, pelvis stable Skin Exam: normal color, warm, dry, No rash Results - Labs Lab/Micro Results: Lab Results-Last 24 Hours 05/06/21 05/06/21 05/06/21 Range/Units 12:33 12:35 12:35 WBC 31.2 H* (4.0-10.5) K/mm3 RBC 4.40 (4.1-5.4) M/mm3 Hgb 12.1 (12.0-16.0) gm/dl Hct 38.3 (35-47) % MCV 87.0 (78-100) fl MCH 27.5 (26-32) pg MCHC 31.6 L (32-36) g/dl RDW 19.4 H (11.5-14.0) % Plt Count 356 (150-450) K/mm3 MPV 10.6 (7.5-11.0) fl Segmented Neutrophils 81 H (36.0-66.0) % Band Neutrophils 11 H (0.0-2.0) % Lymphocytes (Manual) 6 L (24-44) % Monocytes (Manual) 2 (0.0-12.0) % Hypochromia 1+ Platelet Estimate NORMAL (NORMAL) RBC Morphology ABNORMAL Anisocytosis 1+ Sodium 135 L (137-145) mmol/L Potassium 3.4 L (3.5-5.1) mmol/L Chloride 102 (98-107) mmol/L Carbon Dioxide 21 L (22-30) mmol/L Anion Gap 15.3 H (5-15) MEQ/L BUN 24 H (7-17) mg/dL Creatinine 1.21 H (0.52-1.04) mg/dL Estimated GFR 45.6 ML/MIN Glucose 110 H (74-106) mg/dL Lactic Acid 3.4 H (0.4-2.0) Calcium 9.1 (8.4-10.2) mg/dL Magnesium 2.0 (1.6-2.3) mg/dL Total Bilirubin 0.30 (0.2-1.3) mg/dL AST 47 H (14-36) U/L ALT 21 (0-35) U/L Alkaline Phosphatase 88 (38-126) U/L Troponin I (0.000-0.034) ng/mL NT-Pro-B Natriuret Pep 45.9 (0-1800) pg/mL Serum Total Protein 6.9 (6.3-8.2) g/dL Albumin 4.2 (3.5-5.0) g/dL SARS-CoV-2 (PCR) (NEGATIVE) 05/06/21 05/06/21 05/06/21 Range/Units 12:35 15:00 15:45 WBC (4.0-10.5) K/mm3 RBC (4.1-5.4) M/mm3 Hgb (12.0-16.0) gm/dl Hct (35-47) % MCV (78-100) fl MCH (26-32) pg MCHC (32-36) g/dl RDW (11.5-14.0) % Plt Count (150-450) K/mm3 MPV (7.5-11.0) fl Segmented Neutrophils (36.0-66.0) % Band Neutrophils (0.0-2.0) % Lymphocytes (Manual) (24-44) % Monocytes (Manual) (0.0-12.0) % Hypochromia Platelet Estimate (NORMAL) RBC Morphology Anisocytosis Sodium (137-145) mmol/L Potassium (3.5-5.1) mmol/L Chloride (98-107) mmol/L Carbon Dioxide (22-30) mmol/L Anion Gap (5-15) MEQ/L BUN (7-17) mg/dL Creatinine (0.52-1.04) mg/dL Estimated GFR ML/MIN Glucose (74-106) mg/dL Lactic Acid (0.4-2.0) Calcium (8.4-10.2) mg/dL Magnesium (1.6-2.3) mg/dL Total Bilirubin (0.2-1.3) mg/dL AST (14-36) U/L ALT (0-35) U/L Alkaline Phosphatase (38-126) U/L Troponin I < 0.012 < 0.012 (0.000-0.034) ng/mL NT-Pro-B Natriuret Pep (0-1800) pg/mL Serum Total Protein (6.3-8.2) g/dL Albumin (3.5-5.0) g/dL SARS-CoV-2 (PCR) NEGATIVE (NEGATIVE) 05/06/21 05/07/21 05/07/21 Range/Units 18:32 04:00 05:30 WBC 15.0 H (4.0-10.5) K/mm3 RBC 3.77 L (4.1-5.4) M/mm3 Hgb 10.4 L (12.0-16.0) gm/dl Hct 32.8 L (35-47) % MCV 87.0 (78-100) fl MCH 27.6 (26-32) pg MCHC 31.7 L (32-36) g/dl RDW 19.3 H (11.5-14.0) % Plt Count 290 (150-450) K/mm3 MPV 10.6 (7.5-11.0) fl Segmented Neutrophils (36.0-66.0) % Band Neutrophils (0.0-2.0) % Lymphocytes (Manual) (24-44) % Monocytes (Manual) (0.0-12.0) % Hypochromia Platelet Estimate (NORMAL) RBC Morphology Anisocytosis Sodium 135 L (137-145) mmol/L Potassium 3.3 L (3.5-5.1) mmol/L Chloride 102 (98-107) mmol/L Carbon Dioxide 25 (22-30) mmol/L Anion Gap 11.4 (5-15) MEQ/L BUN 21 H (7-17) mg/dL Creatinine 0.90 (0.52-1.04) mg/dL Estimated GFR > 60.0 ML/MIN Glucose 88 (74-106) mg/dL Lactic Acid (0.4-2.0) Calcium 8.8 (8.4-10.2) mg/dL Magnesium (1.6-2.3) mg/dL Total Bilirubin 0.40 (0.2-1.3) mg/dL AST 25 (14-36) U/L ALT 14 (0-35) U/L Alkaline Phosphatase 61 (38-126) U/L Troponin I < 0.012 (0.000-0.034) ng/mL NT-Pro-B Natriuret Pep (0-1800) pg/mL Serum Total Protein 5.6 L (6.3-8.2) g/dL Albumin 3.2 L (3.5-5.0) g/dL SARS-CoV-2 (PCR) (NEGATIVE) - Radiology Impressions Radiology Exams & Impressions: Radiology Procedures Category Date Time Status ABDOMEN AND PELVIS W/0 CONTRAS [CT] Stat Exams 05/06/21 13:25 Completed CERVICAL SPINE WO CONTRAST [CT] Stat Exams 05/06/21 11:45 Completed CHEST 1 VIEW (PORTABLE) Stat Exams 05/06/21 11:47 Completed HEAD WITHOUT CONTRAST [CT] Stat Exams 05/06/21 11:45 Completed - Other Procedures and Tests Respiratory Therapy 05/06/21 23:15 Respiratory Therapy Assessment DAILY Assessment/Plan (1) Vasovagal syncope Current Visit: Yes Status: Acute Assessment & Plan: troponin negative, nothing on workup or telemetry. will hold her zestoretic as she has been on lower end of normal bp since admission with fluids. likely orthostatic/vagal while in restroom yesterday and with her significant weight loss needs her hypertension med held at this time. Code(s): R55 - SYNCOPE AND COLLAPSE (2) Rectal pain Current Visit: Yes Status: Acute Assessment & Plan: consult surgery to consider egd/colonoscopy, will hold her aspirin and plavix at this time, it is administered for a history of TIA/CVA Code(s): K62.89 - OTHER SPECIFIED DISEASES OF ANUS AND RECTUM (3) Orthostatic hypotension Current Visit: Yes Status: Acute Code(s): I95.1 - ORTHOSTATIC HYPOTENSION (4) Weight loss, unintentional Current Visit: Yes Status: Acute Code(s): R63.4 - ABNORMAL WEIGHT LOSS
[2021-05-07] MEDS: NORCO 5/325 MG PO PRN ×2 (08:31→15:16)
[2021-05-07] MEDS: PROTONIX 40 MG IV IV SCH (08:32)
[2021-05-07] MEDS: Sodium Chloride 0.9% W/ 20 mEq KCl/LITER 1,000 ML IV SCH (17:48)
[2021-05-07] MEDS: Golytely Solution 4000 ML PO ONE ×2 (20:20→23:21)
[2021-05-08 02:56] LABS: Appearance CLEAR (CLEAR); Bilirubin NEGATIVE (NEGATIVE); Blood NEGATIVE Ery/ul (0-5); Glucose NEGATIVE (NEGATIVE); Ketones NEGATIVE (NEGATIVE); Leukocyte Esterase NEGATIVE (NEGATIVE); Nitrite NEGATIVE (NEGATIVE); Protein,Urine Dip NEGATIVE (Negative); Specific Gravity 1.006 (1.005-1.025); Urobilinogen NEGATIVE mg/dL (0-1); WBC 0-2 /HPF (0-5)
[2021-05-08 02:59] LABS: Bacteria NONE SEEN /HPF (NEGATIVE)
[2021-05-08 06:27] LABS: Absolute Neutrophil Ct (ANC) 7.55 (1.4-6.9); BASOPHIL % 0.2 % (0.0-0.4); Basophil (Absolute #) 0.02 (0-0.4); Eosinophil % 1.5 % (0.00-5.0); Eosinophil (Absolute #) 0.16 (0-0.5); Hematocrit 32.3 % (35-47); Hemoglobin 9.9 gm/dl (12.0-16.0); Lymphocyte (Absolute #) 2.32 (1.0-4.6); Lymphocytes % 21.6 % (24.0-44.0); Mean Cell Volume 89.2 fl (78-100); Mean Corpuscular Hemoglobin 27.3 pg (26-32); Mean Corpuscular Hgb Concent. 30.7 g/dl (32-36); Mean Platelet Volume 10.7 fl (7.5-11.0); Monocyte (Absolute #) 0.67 (0.0-1.3); Monocytes % 6.3 % (0.0-12.0); Neutrophil % 70.4 % (36.0-66.0); Platelet Count 270 K/mm3 (150-450); Red Blood Count 3.62 M/mm3 (4.1-5.4); Red Cell Distribution Width 18.8 % (11.5-14.0); White Blood Count 10.7 K/mm3 (4.0-10.5)
[2021-05-08 06:36] LABS: ALKALINE PHOSPHATASE 58 U/L (38-126); ANION GAP 9.9 MEQ/L (5-15); BLOOD UREA NITROGEN 13 mg/dL (7-17); CHLORIDE 107 mmol/L (98-107); Calcium 8.7 mg/dL (8.4-10.2); Carbon Dioxide 23 mmol/L (22-30); Creatinine 1 0.71 mg/dL (0.52-1.04); EST GLOMERULAR FILTRATION RATE > 60.0 ML/MIN; Glucose 85 mg/dL (74-106); Potassium 3.6 mmol/L (3.5-5.1); SGOT/AST 25 U/L (14-36); SGPT/ALT 13 U/L (0-35); SODIUM 137 mmol/L (137-145); Total Protein 5.4 g/dL (6.3-8.2)
[2021-05-08] MEDS: NORCO 5/325 MG PO PRN (08:29)
[2021-05-08] MEDS: PROTONIX 40 MG IV IV SCH (08:30)
--- NOTE | 2021-05-08 10:24 | PCM.NOTE ---
Date and Time: 05/08/21 1019 Subjective Assessment: c/o lower abdominal pain. Patient has decreased appetite. Patient only prefer orange juice. She denies any blood in her stool or urine. She denies any fever chills nausea or vomiting. She is complaining of loss of appetite. Patient is refusing for colonoscopy preparation fluid. Patient has been off aspirin and Plavix for at least since admission. - Review of Systems Constitutional: No Fever, No Chills Eyes: No Symptoms Ears, Nose, & Throat: No Symptoms Respiratory: No Cough, No Short Of Breath Cardiac: No Chest Pain, No Edema, No Syncope Abdominal/Gastrointestinal: Abdominal Pain (hypogatric), No Nausea, No Vomiting, No Diarrhea Genitourinary Symptoms: No Dysuria Musculoskeletal: No Back Pain, No Neck Pain Skin: No Rash Neurological: No Dizziness, No Focal Weakness, No Sensory Changes Psychological: No Symptoms Endocrine: No Symptoms Hematologic/Lymphatic: No Symptoms Immunological/Allergic: No Symptoms Objective Exam General Appearance: no apparent distress, alert Neurologic Exam: alert, oriented x 3, cooperative, normal mood/affect, nml cerebellar function, sensation nml, No motor deficits Skin Exam: normal color, warm, dry Eye Exam: PERRL, EOMI, eyes nml inspection Ears, Nose, Throat Exam: normal ENT inspection, pharynx normal, moist mucous membranes Neck Exam: normal inspection, non-tender, supple, full range of motion Respiratory Exam: normal breath sounds, lungs clear, No respiratory distress Cardiovascular Exam: regular rate/rhythm, normal heart sounds Gastrointestinal/Abdomen Exam: soft, tenderness (hypogastric area), No mass Extremity Exam: normal inspection, normal range of motion Back Exam: normal inspection, normal range of motion, No CVA tenderness, No vertebral tenderness Pelvic Exam: deferred Rectal Exam: deferred OBJECTIVE DATA Vital Signs: Vital Signs - 24 hr Temp Pulse Resp BP Pulse Ox 05/08/21 08:00 98.2 F 54 L 20 124/72 97 05/08/21 04:00 98.4 F 51 L 16 111/69 96 05/08/21 00:00 98.1 F 54 L 16 116/65 96 05/07/21 20:00 98.8 F 56 L 18 129/62 97 05/07/21 16:00 97.5 F 57 L 16 107/57 96 05/07/21 12:00 98.7 F 52 L 16 145/60 95 Pain Assessment - Last Documented Pain Intensity 8 Pain Scale Used 0-10 Pain Scale Intake and Output: Intake & Output 05/05/21 05/06/21 05/07/21 05/08/21 11:59 11:59 11:59 11:59 Intake Total 2266 2644 Output Total 400 Balance 2266 2244 Weight 68 kg 66 kg Lab Results: Lab Results-Last 24 Hours 05/07/21 05/07/21 05/08/21 Range/Units 02:32 04:55 06:20 WBC 10.7 H (4.0-10.5) K/mm3 RBC 3.62 L (4.1-5.4) M/mm3 Hgb 9.9 L (12.0-16.0) gm/dl Hct 32.3 L (35-47) % MCV 89.2 (78-100) fl MCH 27.3 (26-32) pg MCHC 30.7 L (32-36) g/dl RDW 18.8 H (11.5-14.0) % Plt Count 270 (150-450) K/mm3 MPV 10.7 (7.5-11.0) fl Gran % 70.4 H (36.0-66.0) % Eos # (Auto) 0.16 (0-0.5) Absolute Lymphs (auto) 2.32 (1.0-4.6) Absolute Monos (auto) 0.67 (0.0-1.3) Lymphocytes % 21.6 L (24.0-44.0) % Monocytes % 6.3 (0.0-12.0) % Eosinophils % 1.5 (0.00-5.0) % Basophils % 0.2 (0.0-0.4) % Absolute Granulocytes 7.55 H (1.4-6.9) Basophils # 0.02 (0-0.4) Sodium (137-145) mmol/L Potassium (3.5-5.1) mmol/L Chloride (98-107) mmol/L Carbon Dioxide (22-30) mmol/L Anion Gap (5-15) MEQ/L BUN (7-17) mg/dL Creatinine (0.52-1.04) mg/dL Estimated GFR ML/MIN Glucose (74-106) mg/dL Lactic Acid 0.9 (0.4-2.0) Calcium (8.4-10.2) mg/dL Total Bilirubin (0.2-1.3) mg/dL AST (14-36) U/L ALT (0-35) U/L Alkaline Phosphatase (38-126) U/L Serum Total Protein (6.3-8.2) g/dL Albumin (3.5-5.0) g/dL Urine Color STRAW (YELLOW) Urine Appearance CLEAR (CLEAR) Urine pH 5.0 (5-6) Ur Specific Comfrey 1.006 (1.005-1.025) Urine Protein NEGATIVE (Negative) Urine Ketones NEGATIVE (NEGATIVE) Urine Blood NEGATIVE (0-5) William/ul Urine Nitrite NEGATIVE (NEGATIVE) Urine Bilirubin NEGATIVE (NEGATIVE) Urine Urobilinogen NEGATIVE (0-1) mg/dL Ur Leukocyte Esterase NEGATIVE (NEGATIVE) Urine WBC (Auto) 0-2 (0-5) /HPF Urine RBC (Auto) NONE (0-2) /HPF U Epithel Cells (Auto) NONE (FEW) /HPF Urine Bacteria (Auto) NONE SEEN (NEGATIVE) /HPF Urine Culture Reflexed NO (NO) Urine Glucose NEGATIVE (NEGATIVE) mg/dL 05/08/21 Range/Units 06:20 WBC (4.0-10.5) K/mm3 RBC (4.1-5.4) M/mm3 Hgb (12.0-16.0) gm/dl Hct (35-47) % MCV (78-100) fl MCH (26-32) pg MCHC (32-36) g/dl RDW (11.5-14.0) % Plt Count (150-450) K/mm3 MPV (7.5-11.0) fl Gran % (36.0-66.0) % Eos # (Auto) (0-0.5) Absolute Lymphs (auto) (1.0-4.6) Absolute Monos (auto) (0.0-1.3) Lymphocytes % (24.0-44.0) % Monocytes % (0.0-12.0) % Eosinophils % (0.00-5.0) % Basophils % (0.0-0.4) % Absolute Granulocytes (1.4-6.9) Basophils # (0-0.4) Sodium 137 (137-145) mmol/L Potassium 3.6 (3.5-5.1) mmol/L Chloride 107 (98-107) mmol/L Carbon Dioxide 23 (22-30) mmol/L Anion Gap 9.9 (5-15) MEQ/L BUN 13 (7-17) mg/dL Creatinine 0.71 (0.52-1.04) mg/dL Estimated GFR > 60.0 ML/MIN Glucose 85 (74-106) mg/dL Lactic Acid (0.4-2.0) Calcium 8.7 (8.4-10.2) mg/dL Total Bilirubin 0.20 (0.2-1.3) mg/dL AST 25 (14-36) U/L ALT 13 (0-35) U/L Alkaline Phosphatase 58 (38-126) U/L Serum Total Protein 5.4 L (6.3-8.2) g/dL Albumin 3.0 L (3.5-5.0) g/dL Urine Color (YELLOW) Urine Appearance (CLEAR) Urine pH (5-6) Ur Specific Comfrey (1.005-1.025) Urine Protein (Negative) Urine Ketones (NEGATIVE) Urine Blood (0-5) William/ul Urine Nitrite (NEGATIVE) Urine Bilirubin (NEGATIVE) Urine Urobilinogen (0-1) mg/dL Ur Leukocyte Esterase (NEGATIVE) Urine WBC (Auto) (0-5) /HPF Urine RBC (Auto) (0-2) /HPF U Epithel Cells (Auto) (FEW) /HPF Urine Bacteria (Auto) (NEGATIVE) /HPF Urine Culture Reflexed (NO) Urine Glucose (NEGATIVE) mg/dL Radiology Exams: Radiology Procedures Category Date Time Status ABDOMEN AND PELVIS W/0 CONTRAS [CT] Stat Exams 05/06/21 13:25 Completed CERVICAL SPINE WO CONTRAST [CT] Stat Exams 05/06/21 11:45 Completed CHEST 1 VIEW (PORTABLE) Stat Exams 05/06/21 11:47 Completed HEAD WITHOUT CONTRAST [CT] Stat Exams 05/06/21 11:45 Completed Assessment/Plan (1) Diverticulitis large intestine Current Visit: Yes Status: Acute Qualifiers: Diverticulitis bleeding: without bleeding Assessment & Plan: Medication Report Hydrocodone Bitart/Acetaminophen ([place] 5/325 Mg) 1 tab PO Q4H PRN PRN PRN Reason: PAIN Stop: 05/11/21 19:50 Last Admin: 05/08/21 08:29 Dose: 1 tab Documented by: RACHELL PETERSON PAIN Document 05/08/21 08:29 (Rec: 05/08/21 08:29 [id number]) Reassesment Pain Site Lower Pain Scale Used 0-10 Pain Scale Pain Intensity (0-10) 8 Comment RECTUM Potassium Chloride/Sodium Chloride (Sodium Chloride 0.9% W/ 20 Meq Kcl/Liter) 1,000 mls @ 75 mls/hr IV .[id number] [facility] Stop: 06/05/21 17:50 Last Admin: 05/07/21 17:48 Dose: 75 mls/hr Documented by: LUIS MIGUEL Infusion/Titration Document 05/07/21 17:48 AR (Rec: 05/07/21 17:48 AR [id number]) Dosing & Rate IV Rate 75 Increase/Decrease Started Cumulative Dose Not Applicable IV Intake Container Volume 1,000 Volume Adjustment/Waste 0 Ondansetron HCl (Zofran 4 Mg/2 Ml Vial) 4 mg IV Q6H PRN PRN PRN Reason: NAUSEA/VOMITING Stop: 06/05/21 17:50 Last Admin: 05/06/21 20:30 Dose: 4 mg Documented by: RADHA Pantoprazole Sodium (Protonix 40 Mg Iv) 40 mg IV Q24H10 [facility] Stop: 06/06/21 09:59 Last Admin: 05/08/21 08:30 Dose: 40 mg Documented by: RACHELL Discontinued Medications Hydrocodone Bitart/Acetaminophen ([place] 5/325 Mg) 1 tab PO STAT ONE Stop: 05/06/21 13:17 Last Admin: 05/06/21 13:47 Dose: Not Given Documented by: KAEL Non-Admin Reason: IV meds given instead Sodium Chloride (Sodium Chloride 0.9% 1000 Ml) 1,000 mls @ 100 mls/hr IV .Q10H [facility] Stop: 06/05/21 13:29 Last Admin: 05/07/21 05:48 Dose: 100 mls/hr Documented by: RADHA Infusion/Titration Document 05/07/21 05:48 KX (Rec: 05/07/21 05:48 KX [id number]) Dosing & Rate IV Rate 100 Increase/Decrease Started/Running Cumulative Dose Not Applicable IV Intake Cumulative Intake (Rx) 1,000 Container Volume 1,000 Volume Adjustment/Waste 0 Morphine Sulfate (Morphine Sulfate 2 Mg Inj) 2 mg IV STAT ONE Stop: 05/06/21 13:26 Last Admin: 05/06/21 14:03 Dose: 2 mg Documented by: [employer] [facility] [employer] (IV,IVP) Document 05/06/21 14:03 (Rec: 05/06/21 14:04 [id number]) Type of Administration Initial IV Push No MAR PAIN Document 05/06/21 14:03 (Rec: 05/06/21 14:04 [id number]) Reassesment Pain Scale Used 0-10 Pain Scale Pain Intensity (0-10) 10 Comment "rectum pain" Ondansetron HCl (Zofran 4 Mg/2 Ml Vial) 4 mg IV STAT ONE Stop: 05/06/21 13:26 Last Admin: 05/06/21 14:03 Dose: 4 mg Documented by: [facility] (IV,IVP) Document 05/06/21 14:03 (Rec: 05/06/21 14:03 [id number]) Type of Administration Initial IV Push No Polyethylene Glycol/Electrolytes (Golytely Solution 4000 Ml) 4,000 ml PO ONCE@1400 ONE Stop: 05/07/21 20:31 Last Admin: 05/07/21 23:21 Dose: Not Given Documented by: RADHA Non-Admin Reason: patient refused Will add Flagyl 500 mg IV every 8 hours for diverticulitis. As patient is refusing for GoLYTELY for her colonoscopy preparation we will let surgery know. Code(s): K57.32 - DVTRCLI OF LG INT W/O PERFORATION OR ABSCESS W/O BLEEDING (2) Hypogastric pain Current Visit: Yes Status: Acute Code(s): R10.2 - PELVIC AND PERINEAL PAIN (3) Near syncope Current Visit: Yes Status: Acute
[2021-05-08] MEDS: FLAGYL 500 MG IVPB 500 MG/100 ML BAG IV SCH ×2 (14:27→22:02)
[2021-05-08] MEDS: Sodium Chloride 0.9% W/ 20 mEq KCl/LITER 1,000 ML IV SCH ×2 (14:27→22:05)
[2021-05-08] MEDS: MORPHINE SULFATE 2 MG INJ IV PRN ×2 (14:31→22:02)
[2021-05-09] MEDS: Sodium Chloride 0.9% W/ 20 mEq KCl/LITER 1,000 ML IV SCH (04:18)
--- NOTE | 2021-05-09 05:19 | PCM.NOTE ---
Date and Time: 05/09/21517 Subjective Assessment: c/o lower abdominal pain. - Review of Systems Constitutional: No Fever, No Chills Eyes: No Symptoms Ears, Nose, & Throat: No Symptoms Respiratory: No Cough, No Short Of Breath Cardiac: No Chest Pain, No Edema, No Syncope Abdominal/Gastrointestinal: Abdominal Pain, No Nausea, No Vomiting, No Diarrhea Genitourinary Symptoms: No Dysuria Musculoskeletal: No Back Pain, No Neck Pain Skin: No Rash Neurological: No Dizziness, No Focal Weakness, No Sensory Changes Psychological: No Symptoms Endocrine: No Symptoms Hematologic/Lymphatic: No Symptoms Immunological/Allergic: No Symptoms Objective Exam General Appearance: no apparent distress, alert Neurologic Exam: alert, oriented x 3, cooperative, normal mood/affect, nml cerebellar function, sensation nml, No motor deficits Skin Exam: normal color, warm, dry Eye Exam: PERRL, EOMI, eyes nml inspection Ears, Nose, Throat Exam: normal ENT inspection, pharynx normal, moist mucous membranes Neck Exam: normal inspection, non-tender, supple, full range of motion Respiratory Exam: normal breath sounds, lungs clear, No respiratory distress Cardiovascular Exam: regular rate/rhythm, normal heart sounds Gastrointestinal/Abdomen Exam: soft, tenderness, No mass Extremity Exam: normal inspection, normal range of motion Back Exam: normal inspection, normal range of motion, No CVA tenderness, No vertebral tenderness Pelvic Exam: deferred Rectal Exam: deferred OBJECTIVE DATA Vital Signs: Vital Signs - 24 hr Temp Pulse Resp BP Pulse Ox 05/09/21 04:00 97.5 F 56 L 20 132/61 96 05/09/21 00:00 97.8 F 63 20 123/81 98 05/08/21 23:46 18 05/08/21 20:00 97.5 F 57 L 18 117/58 96 05/08/21 16:00 97.2 F 74 18 141/68 97 05/08/21 12:00 65 22 128/70 96 05/08/21 08:00 98.2 F 54 L 20 124/72 97 Pain Assessment - Last Documented Pain Intensity 0 [facility] Intake and Output: Intake & Output 05/06/21 05/07/21 05/08/21 05/09/21 11:59 11:59 11:59 11:59 Intake Total 2266 2644 1349 Output Total 400 200 Balance 2266 2244 1149 Weight 68 kg 66 kg 66.2 kg Lab Results: Lab Results-Last 24 Hours 05/08/21 05/08/21 Range/Units 06:20 06:20 WBC 10.7 H (4.0-10.5) K/mm3 RBC 3.62 L (4.1-5.4) M/mm3 Hgb 9.9 L (12.0-16.0) gm/dl Hct 32.3 L (35-47) % MCV 89.2 (78-100) fl MCH 27.3 (26-32) pg MCHC 30.7 L (32-36) g/dl RDW 18.8 H (11.5-14.0) % Plt Count 270 (150-450) K/mm3 MPV 10.7 (7.5-11.0) fl Gran % 70.4 H (36.0-66.0) % Eos # (Auto) 0.16 (0-0.5) Absolute Lymphs (auto) 2.32 (1.0-4.6) Absolute Monos (auto) 0.67 (0.0-1.3) Lymphocytes % 21.6 L (24.0-44.0) % Monocytes % 6.3 (0.0-12.0) % Eosinophils % 1.5 (0.00-5.0) % Basophils % 0.2 (0.0-0.4) % Absolute Granulocytes 7.55 H (1.4-6.9) Basophils # 0.02 (0-0.4) Sodium 137 (137-145) mmol/L Potassium 3.6 (3.5-5.1) mmol/L Chloride 107 (98-107) mmol/L Carbon Dioxide 23 (22-30) mmol/L Anion Gap 9.9 (5-15) MEQ/L BUN 13 (7-17) mg/dL Creatinine 0.71 (0.52-1.04) mg/dL Estimated GFR > 60.0 ML/MIN Glucose 85 (74-106) mg/dL Calcium 8.7 (8.4-10.2) mg/dL Total Bilirubin 0.20 (0.2-1.3) mg/dL AST 25 (14-36) U/L ALT 13 (0-35) U/L Alkaline Phosphatase 58 (38-126) U/L Serum Total Protein 5.4 L (6.3-8.2) g/dL Albumin 3.0 L (3.5-5.0) g/dL Assessment/Plan (1) Diverticulitis large intestine Current Visit: Yes Status: Acute Qualifiers: Diverticulitis bleeding: without bleeding Assessment & Plan: Last Vital Signs Temp 97.5 F 05/09/21 04:00 Pulse 56 L 05/09/21 04:00 Resp 20 05/09/21 04:00 BP 132/61 05/09/21 04:00 Pulse Ox 96 05/09/21 04:00 Allergies No Known Drug Allergies Allergy (Verified 05/06/21 18:38) Active Medications Acetaminophen (Tylenol 325 Mg) 650 mg PO Q4H PRN PRN PRN Reason: PAIN AND/OR FEVER Stop: 06/05/21 17:50 Hydrocodone Bitart/Acetaminophen ([place] 5/325 Mg) 1 tab PO Q4H PRN PRN PRN Reason: PAIN Stop: 05/11/21 19:50 Last Admin: 05/08/21 08:29 Dose: 1 tab Documented by: Potassium Chloride/Sodium Chloride (Sodium Chloride 0.9% W/ 20 Meq Kcl/Liter) 1,000 mls @ 75 mls/hr IV .[id number] [facility] Stop: 06/05/21 17:50 Last Admin: 05/09/21 04:18 Dose: 75 mls/hr Documented by: Metronidazole (Flagyl 500 Mg Ivpb) 500 mg in 100 mls @ 200 mls/hr IV Q8HT [facility] Stop: 06/07/21 13:59 Last Admin: 05/08/21 22:02 Dose: 200 mls/hr Documented by: Morphine Sulfate (Morphine Sulfate 2 Mg Inj) 2 mg IV Q4H PRN PRN PRN Reason: PAIN Stop: 05/13/21 09:48 Last Admin: 05/08/21 22:02 Dose: 2 mg Documented by: Ondansetron HCl (Zofran 4 Mg/2 Ml Vial) 4 mg IV Q6H PRN PRN PRN Reason: NAUSEA/VOMITING Stop: 06/05/21 17:50 Last Admin: 05/06/21 20:30 Dose: 4 mg Documented by: Pantoprazole Sodium (Protonix 40 Mg Iv) 40 mg IV Q24H10 [facility] Stop: 06/06/21 09:59 Last Admin: 05/08/21 08:30 Dose: 40 mg Documented by: Intake & Output 05/08/21 05/09/21 11:59 11:59 Intake Total 2644 1349 Output Total 400 200 Balance 2244 1149 Weight 66.2 kg Orders 05/08/21 09:49 Nursing [Miscellaneous Nursing Order] ONCE Morphine Sulfate 2 mg Inj 2 mg IV Q4H PRN PRN 05/08/21 14:00 Metronidazole 500 mg Premix [Flagyl 500 mg Ivpb] 500 mg in 100 ml IV Q8HT 05/09/21 04:00 CBC W DIFF AM.LAB CMP AM.LAB Lab Tests 05/08/21 05/08/21 06:20 06:20 WBC 10.7 H RBC 3.62 L Hgb 9.9 L Hct 32.3 L MCV 89.2 MCH 27.3 MCHC 30.7 L RDW 18.8 H Plt Count 270 MPV 10.7 Gran % 70.4 H Eos # (Auto) 0.16 Absolute Lymphs (auto) 2.32 Absolute Monos (auto) 0.67 Lymphocytes % 21.6 L Monocytes % 6.3 Eosinophils % 1.5 Basophils % 0.2 Absolute Granulocytes 7.55 H Basophils # 0.02 Sodium 137 Potassium 3.6 Chloride 107 Carbon Dioxide 23 Anion Gap 9.9 BUN 13 Creatinine 0.71 Estimated GFR > 60.0 Glucose 85 Calcium 8.7 Total Bilirubin 0.20 AST 25 ALT 13 Alkaline Phosphatase 58 Serum Total Protein 5.4 L Albumin 3.0 L Code(s): K57.32 - DVTRCLI OF LG INT W/O PERFORATION OR ABSCESS W/O BLEEDING (2) Hypogastric pain Current Visit: Yes Status: Acute Code(s): R10.2 - PELVIC AND PERINEAL PAIN (3) Near syncope Current Visit: Yes Status: Acute
[2021-05-09] MEDS: FLAGYL 500 MG IVPB 500 MG/100 ML BAG IV SCH (06:20)
[2021-05-09 06:36] LABS: Absolute Neutrophil Ct (ANC) 5.81 (1.4-6.9); BASOPHIL % 0.5 % (0.0-0.4); Basophil (Absolute #) 0.05 (0-0.4); Eosinophil % 1.9 % (0.00-5.0); Eosinophil (Absolute #) 0.18 (0-0.5); Hematocrit 32.6 % (35-47); Hemoglobin 10.1 gm/dl (12.0-16.0); Lymphocyte (Absolute #) 2.73 (1.0-4.6); Lymphocytes % 29.3 % (24.0-44.0); Mean Cell Volume 88.8 fl (78-100); Mean Corpuscular Hemoglobin 27.5 pg (26-32); Mean Platelet Volume 10.7 fl (7.5-11.0); Monocyte (Absolute #) 0.56 (0.0-1.3); Neutrophil % 62.3 % (36.0-66.0); Platelet Count 263 K/mm3 (150-450); Red Blood Count 3.67 M/mm3 (4.1-5.4); Red Cell Distribution Width 18.5 % (11.5-14.0); White Blood Count 9.3 K/mm3 (4.0-10.5)
--- NOTE | 2021-05-09 06:51 | PCM.DS ---
Discharge Summary Date of Admission: 05/06/21 17:47 Admitting Physician: PEDRO MONTENEGRO Consults: Consults on Case 05/07/21 08:06 Consult Surgery ROUTINE Primary Care Provider: PEDRO MONTENEGRO Allergies Allergies No Known Drug Allergies Allergy (Verified 05/06/21 18:38) Hospital Summary - Hospital Course Hospital Course: Chief Complaint Diagnosis near syncope, gen weakness Allergies Allergy/AdvReac Type Severity Reaction Status Date / Time No Known Drug Allergies Allergy Verified 05/06/21 18:38 Vital Signs (Last 24 hours) Temp Pulse Resp BP Pulse Ox 05/09/21 04:00 97.5 F 56 L 20 132/61 96 05/09/21 00:00 97.8 F 63 20 123/81 98 05/08/21 23:46 18 05/08/21 20:00 97.5 F 57 L 18 117/58 96 05/08/21 16:00 97.2 F 74 18 141/68 97 05/08/21 12:00 65 22 128/70 96 05/08/21 08:00 98.2 F 54 L 20 124/72 97 Current Medications Generic Name Dose Route Start Last Admin Trade Name Freq PRN Reason Stop Dose Admin Acetaminophen 650 mg 05/06/21 17:51 Tylenol 325 Mg PO 06/05/21 17:50 Q4H PRN PRN PAIN AND/OR FEVER Hydrocodone Bitart/Acetaminophen 1 tab 05/06/21 19:51 05/08/21 08:29 [place] 5/325 Mg PO 05/11/21 19:50 1 tab Q4H PRN PRN Administration PAIN Potassium Chloride/Sodium Chloride 1,000 mls @ 75 mls/hr 05/06/21 17:51 05/09/21 04:18 Sodium Chloride 0.9% W/ 20 Meq Kcl/Liter IV 06/05/21 17:50 75 mls/hr .[id number] SANDRA Administration Metronidazole 500 mg in 100 mls @ 200 mls/hr 05/08/21 14:00 05/09/21 06:20 Flagyl 500 Mg Ivpb IV 06/07/21 13:59 200 mls/hr Q8HT SANDRA Administration Morphine Sulfate 2 mg 05/08/21 09:49 05/08/21 22:02 Morphine Sulfate 2 Mg Inj IV 05/13/21 09:48 2 mg Q4H PRN PRN Administration PAIN Ondansetron HCl 4 mg 05/06/21 17:51 05/06/21 20:30 Zofran 4 Mg/2 Ml Vial IV 06/05/21 17:50 4 mg Q6H PRN PRN Administration NAUSEA/VOMITING Pantoprazole Sodium 40 mg 05/07/21 10:00 05/08/21 08:30 Protonix 40 Mg Iv IV 06/06/21 09:59 40 mg Q24H10 SANDRA Administration Discontinued Medications Generic Name Dose Route Start Last Admin Trade Name Freq PRN Reason Stop Dose Admin Hydrocodone Bitart/Acetaminophen 1 tab 05/06/21 13:16 05/06/21 13:47 [place] 5/325 Mg PO 05/06/21 13:17 Not Given STAT ONE Albuterol/Ipratropium 3 ml 05/06/21 17:51 Duoneb 0.5-3 Mg/3 Ml Neb IH 06/05/21 17:50 Q4HPRN PRN SHORTNESS OF BREATH/WHEEZING Sodium Chloride 1,000 mls @ 100 mls/hr 05/06/21 13:30 05/07/21 05:48 Sodium Chloride 0.9% 1000 Ml IV 06/05/21 13:29 100 mls/hr .Q10H SANDRA Administration Vancomycin HCl Confirm 05/06/21 13:48 Vancomycin 1 Gram/200 Ml Bag Administered 05/06/21 13:49 Dose 1 gm in 200 mls @ ud IV .STK-MED ONE Sodium Chloride Confirm 05/06/21 14:10 Sodium Chloride 0.9% 1000 Ml Administered 05/06/21 14:11 Dose 1,000 mls @ ud .ROUTE .STK-MED ONE Sodium Chloride Confirm 05/07/21 05:37 Sodium Chloride 0.9% 1000 Ml Administered 05/07/21 05:38 Dose 1,000 mls @ ud .ROUTE .STK-MED ONE Morphine Sulfate 2 mg 05/06/21 13:25 05/06/21 14:03 Morphine Sulfate 2 Mg Inj IV 05/06/21 13:26 2 mg STAT ONE Administration Morphine Sulfate Confirm 05/06/21 13:48 Morphine Sulfate 2 Mg Inj Administered 05/06/21 13:49 Dose 2 mg .ROUTE .STK-MED ONE Ondansetron HCl 4 mg 05/06/21 13:25 05/06/21 14:03 Zofran 4 Mg/2 Ml Vial IV 05/06/21 13:26 4 mg STAT ONE Administration Ondansetron HCl Confirm 05/06/21 13:48 Zofran 4 Mg/2 Ml Vial Administered 05/06/21 13:49 Dose 4 mg .ROUTE .STK-MED ONE Polyethylene Glycol/Electrolytes 4,000 ml 05/07/21 20:30 05/07/21 23:21 Golytely Solution 4000 Ml PO 05/07/21 20:31 Not Given ONCE@1400 ONE Intake & Output (Last 24 hours) 05/06/21 05/07/21 05/08/21 05/09/21 11:59 11:59 11:59 11:59 Intake Total 2266 2644 1949 Output Total 400 425 Balance 2266 2244 1524 Weight 68 kg 66 kg 66.2 kg 65.7 kg Orders (Last 24 hours) Category Date Time Status Nursing [Miscellaneous Nursing Order] ONCE Care 05/08/21 09:49 Active CBC W DIFF AM.LAB Lab 05/08/21 06:20 Completed CBC W DIFF AM.LAB Lab 05/09/21 06:20 Received CMP AM.LAB Lab 05/08/21 06:20 Completed CMP AM.LAB Lab 05/09/21 06:20 Received Metronidazole 500 mg Premix [Flagyl 500 mg Ivpb] Med 05/08/21 14:00 Active 500 mg in 100 ml IV Q8HT Morphine Sulfate 2 mg Inj Med 05/08/21 09:49 Active 2 mg IV Q4H PRN PRN Patient Care Notes (Last 24 hours) 05/08/21 09:45 Nursing Note by Bety Klein ROUNDED WITH DR. MOORE. ORDERING A GI PANEL, FLAGYL, MORPHINE FOR PAIN, LABS IN THE MORNING, AND REACH OUT TO DR SPENCER ABOUT THE PLAN ON SCOPING PATIENT. Initialized on 05/08/21 09:45 - END OF NOTE Patient has requested that she wants to contact Dr. Craig who is her souvenir and novelty maker first before undergoing any procedure as she is on blood thinner an d antiplatelet agents which her souvenir and novelty maker has told her not to stop it. Patient is feeling much better her abdominal pain is improved her rectal pain is improved will continue her on Flagyl 500 mg 3 times a day for 5 more days and advised to call Dr. Craig on Monday and follow-up with him as well as follow-up with primary care physician in next 2 to 3 days. - Vitals & Intake/Output Vital Signs: Vital Signs Temperature 97.5 F 05/09/21 04:00 Pulse Rate 56 L 05/09/21 04:00 Respiratory Rate 20 05/09/21 04:00 Blood Pressure 132/61 05/09/21 04:00 O2 Sat by Pulse Oximetry 96 05/09/21 04:00 Intake & Output: Intake & Output 05/06/21 05/07/21 05/08/21 05/09/21 11:59 11:59 11:59 11:59 Intake Total 2266 2644 1949 Output Total 400 425 Balance 2266 2244 1524 Weight 68 kg 66 kg 66.2 kg 65.7 kg - Lab Result Diagrams: 05/08/21 06:20 05/08/21 06:20 - Procedures and Test Procedures and Tests throughout Hospitalization: Therapy Orders & Screens 05/06/21 23:15 Respiratory Therapy Assessment DAILY Comment: Diagnosis: near syncope, gen weakness Discharge Exam General Appearance: no apparent distress, alert Neurologic Exam: alert, oriented x 3, cooperative, normal mood/affect, nml cerebellar function, sensation nml, No motor deficits Eye Exam: PERRL, EOMI, eyes nml inspection Ears, Nose, Throat Exam: normal ENT inspection, pharynx normal, moist mucous membranes Neck Exam: normal inspection, non-tender, supple, full range of motion Respiratory Exam: normal breath sounds, lungs clear, No respiratory distress Cardiovascular Exam: regular rate/rhythm, normal heart sounds Gastrointestinal/Abdomen Exam: soft, No tenderness, No mass Pelvic Exam: deferred Rectal Exam: deferred Back Exam: normal inspection, normal range of motion, No CVA tenderness, No vertebral tenderness Extremity Exam: normal inspection, normal range of motion Skin Exam: normal color, warm, dry Final Diagnosis/Problem List - Final Discharge Diagnosis/Problem (1) Diverticulitis large intestine Current Visit: Yes Status: Acute Assessment & Plan: Chief Complaint Diagnosis near syncope, gen weakness Allergies Allergy/AdvReac Type Severity Reaction Status Date / Time No Known Drug Allergies Allergy Verified 05/06/21 18:38 Vital Signs (Last 24 hours) Temp Pulse Resp BP Pulse Ox 05/09/21 04:00 97.5 F 56 L 20 132/61 96 05/09/21 00:00 97.8 F 63 20 123/81 98 05/08/21 23:46 18 05/08/21 20:00 97.5 F 57 L 18 117/58 96 05/08/21 16:00 97.2 F 74 18 141/68 97 05/08/21 12:00 65 22 128/70 96 05/08/21 08:00 98.2 F 54 L 20 124/72 97 Current Medications Generic Name Dose Route Start Last Admin Trade Name Freq PRN Reason Stop Dose Admin Acetaminophen 650 mg 05/06/21 17:51 Tylenol 325 Mg PO 06/05/21 17:50 Q4H PRN PRN PAIN AND/OR FEVER Hydrocodone Bitart/Acetaminophen 1 tab 05/06/21 19:51 05/08/21 08:29 [place] 5/325 Mg PO 05/11/21 19:50 1 tab Q4H PRN PRN Administration PAIN Potassium Chloride/Sodium Chloride 1,000 mls @ 75 mls/hr 05/06/21 17:51 05/09/21 04:18 Sodium Chloride 0.9% W/ 20 Meq Kcl/Liter IV 06/05/21 17:50 75 mls/hr .[id number] SANDRA Administration Metronidazole 500 mg in 100 mls @ 200 mls/hr 05/08/21 14:00 05/09/21 06:20 Flagyl 500 Mg Ivpb IV 06/07/21 13:59 200 mls/hr Q8HT SANDRA Administration Morphine Sulfate 2 mg 05/08/21 09:49 05/08/21 22:02 Morphine Sulfate 2 Mg Inj IV 05/13/21 09:48 2 mg Q4H PRN PRN Administration PAIN Ondansetron HCl 4 mg 05/06/21 17:51 05/06/21 20:30 Zofran 4 Mg/2 Ml Vial IV 06/05/21 17:50 4 mg Q6H PRN PRN Administration NAUSEA/VOMITING Pantoprazole Sodium 40 mg 05/07/21 10:00 05/08/21 08:30 Protonix 40 Mg Iv IV 06/06/21 09:59 40 mg Q24H10 SANDRA Administration Discontinued Medications Generic Name Dose Route Start Last Admin Trade Name Freq PRN Reason Stop Dose Admin Hydrocodone Bitart/Acetaminophen 1 tab 05/06/21 13:16 05/06/21 13:47 [place] 5/325 Mg PO 05/06/21 13:17 Not Given STAT ONE Albuterol/Ipratropium 3 ml 05/06/21 17:51 Duoneb 0.5-3 Mg/3 Ml Neb IH 06/05/21 17:50 Q4HPRN PRN SHORTNESS OF BREATH/WHEEZING Sodium Chloride 1,000 mls @ 100 mls/hr 05/06/21 13:30 05/07/21 05:48 Sodium Chloride 0.9% 1000 Ml IV 06/05/21 13:29 100 mls/hr .Q10H SANDRA Administration Vancomycin HCl Confirm 05/06/21 13:48 Vancomycin 1 Gram/200 Ml Bag Administered 05/06/21 13:49 Dose 1 gm in 200 mls @ ud IV .STK-MED ONE Sodium Chloride Confirm 05/06/21 14:10 Sodium Chloride 0.9% 1000 Ml Administered 05/06/21 14:11 Dose 1,000 mls @ ud .ROUTE .STK-MED ONE Sodium Chloride Confirm 05/07/21 05:37 Sodium Chloride 0.9% 1000 Ml Administered 05/07/21 05:38 Dose 1,000 mls @ ud .ROUTE .STK-MED ONE Morphine Sulfate 2 mg 05/06/21 13:25 05/06/21 14:03 Morphine Sulfate 2 Mg Inj IV 05/06/21 13:26 2 mg STAT ONE Administration Morphine Sulfate Confirm 05/06/21 13:48 Morphine Sulfate 2 Mg Inj Administered 05/06/21 13:49 Dose 2 mg .ROUTE .STK-MED ONE Ondansetron HCl 4 mg 05/06/21 13:25 05/06/21 14:03 Zofran 4 Mg/2 Ml Vial IV 05/06/21 13:26 4 mg STAT ONE Administration Ondansetron HCl Confirm 05/06/21 13:48 Zofran 4 Mg/2 Ml Vial Administered 05/06/21 13:49 Dose 4 mg .ROUTE .STK-MED ONE Polyethylene Glycol/Electrolytes 4,000 ml 05/07/21 20:30 05/07/21 23:21 Golytely Solution 4000 Ml PO 05/07/21 20:31 Not Given ONCE@1400 ONE Intake & Output (Last 24 hours) 05/06/21 05/07/21 05/08/21 05/09/21 11:59 11:59 11:59 11:59 Intake Total 2266 2644 1949 Output Total 400 425 Balance 2266 2244 1524 Weight 68 kg 66 kg 66.2 kg 65.7 kg Orders (Last 24 hours) Category Date Time Status Nursing [Miscellaneous Nursing Order] ONCE Care 05/08/21 09:49 Active CBC W DIFF AM.LAB Lab 05/08/21 06:20 Completed CBC W DIFF AM.LAB Lab 05/09/21 06:20 Received CMP AM.LAB Lab 05/08/21 06:20 Completed CMP AM.LAB Lab 05/09/21 06:20 Received Metronidazole 500 mg Premix [Flagyl 500 mg Ivpb] Med 05/08/21 14:00 Active 500 mg in 100 ml IV Q8HT Morphine Sulfate 2 mg Inj Med 05/08/21 09:49 Active 2 mg IV Q4H PRN PRN Patient Care Notes (Last 24 hours) 05/08/21 09:45 Nursing Note by Bety Klein WITH DR. MOORE. ORDERING A GI PANEL, FLAGYL, MORPHINE FOR PAIN, LABS IN THE MORNING, AND REACH OUT TO DR SPENCER ABOUT THE PLAN ON SCOPING PATIENT. Initialized on 05/08/21 09:45 - END OF NOTE Code(s): K57.32 - DVTRCLI OF LG INT W/O PERFORATION OR ABSCESS W/O BLEEDING (2) Hypogastric pain Current Visit: Yes Status: Resolved Code(s): R10.2 - PELVIC AND PERINEAL PAIN (3) Near syncope Current Visit: Yes Status: Resolved (4) CAD (coronary artery disease) Current Visit: Yes Status: Chronic Code(s): I25.10 - ATHSCL HEART DISEASE OF [place] CORONARY ARTERY W/O ANG PCTRS (5) HTN (hypertension) Current Visit: Yes Status: Chronic Code(s): I10 - ESSENTIAL (PRIMARY) HYPERTENSION - Discharge Discharge Date: 05/09/21 Disposition: Home, Self-Care Condition: Stable Prescriptions: New Metronidazole 500 mg [Flagyl 500 MG] 500 mg PO TID #21 tablet Continue Lovastatin 40 mg PO HS Omeprazole 20 mg PO DAILY Lisinopril/Hydrochlorothiazide [Lisinopril-Hctz 20-12.5 mg Tab] 1 each PO DAILY Aspirin EC 325 mg [Ecotrin 325 MG] 81 mg PO DAILY Clopidogrel Bisulfate 75 mg [PLAVIX 75 MG Tablet] 75 mg PO DAILY Linaclotide [Linzess] 145 mcg PO DAILY Follow up with: PEDRO MONTENEGRO MD [Primary Care Provider] - 5 Days
[2021-05-09 06:56] LABS: ALBUMIN 2.8 g/dL (3.5-5.0); ALKALINE PHOSPHATASE 56 U/L (38-126); ANION GAP 9.2 MEQ/L (5-15); BLOOD UREA NITROGEN 11 mg/dL (7-17); CHLORIDE 109 mmol/L (98-107); Calcium 8.3 mg/dL (8.4-10.2); Carbon Dioxide 24 mmol/L (22-30); Creatinine 1 0.67 mg/dL (0.52-1.04); EST GLOMERULAR FILTRATION RATE > 60.0 ML/MIN; Glucose 83 mg/dL (74-106); Potassium 3.5 mmol/L (3.5-5.1); SGOT/AST 24 U/L (14-36); SGPT/ALT 11 U/L (0-35); SODIUM 138 mmol/L (137-145); Total Protein 5.2 g/dL (6.3-8.2)
[2021-05-09 07:14] VITALS: BP 124/67; PULSE 52; O2SAT 97
[2021-05-09] MEDS ORDERED: FLUZONE HIGH-DOSE QUAD 2021-22 IM ONE (08:30)
== END 2021-05-09 09:38 | disposition home or self-care (01) ==
LOC: ED 11:23 → MED SURG 17:47
PROVIDERS: ADMIT Family Medicine; ATTEND Family Medicine
DX: K57.30 Diverticulosis of large intestine without perforation or abscess without bleeding (principal); R53.1 Weakness; W19.XXXA Unspecified fall, initial encounter; R55 Syncope and collapse; Y92.002 Bathroom of unspecified non-institutional (private) residence as the place of occurrence of the external cause; R51.9 Headache, unspecified; S00.03XA Contusion of scalp, initial encounter; R63.4 Abnormal weight loss; I10 Essential (primary) hypertension; D72.829 Elevated white blood cell count, unspecified; R10.2 Pelvic and perineal pain; I25.10 Atherosclerotic heart disease of native coronary artery without angina pectoris; Z79.899 Other long term (current) drug therapy; Z79.01 Long term (current) use of anticoagulants; Z86.73 Personal history of transient ischemic attack (TIA), and cerebral infarction without residual deficits; E78.00 Pure hypercholesterolemia, unspecified; K62.89 Other specified diseases of anus and rectum; Z20.822 Contact with and (suspected) exposure to COVID-19; Z23 Encounter for immunization
CPT/HCPCS: 36000; 36415; 70450; 71045; 72125; 74176; 80053; 81001; 83605; 83735; 83880; 84484; 85025; 93005; 93268; 96374; 96375; 99285; G0008; G0378; U0003; 90662; J2270; J2405; A9270-GY; J3370